=== PATIENT | female | born 1940 | race Caucasian/White ===

== ENCOUNTER 2018-07-18 09:31 | Outpatient (CLI) | payer MEDICARE ==
--- NOTE | 2018-07-18 10:36 | ULT ---
ULTRASOUND ABDOMEN: HISTORY: Increased LFTs. FINDINGS: The liver demonstrates increased echogenicity, consistent with fatty infiltration. No focal mass or intrahepatic ductal dilatation is seen. No gallstones, gallbladder wall thickening, or pericholecyst ic fluid is identified. The common duct measures 4 mm in diameter. The right kidney and pancreas ar e normal. No free fluid is seen in the Renteria pouch. IMPRESSION: 1. Fatty liver. 2. No evidence of cholelithiasis. POS: [facility]
== END 2018-07-18 09:32 | disposition home or self-care (01) ==
LOC: BICULT 09:31
PROVIDERS: ATTEND Internal Medicine
DX: R74.0 Nonspecific elevation of levels of transaminase and lactic acid dehydrogenase [LDH] (principal); K76.0 Fatty (change of) liver, not elsewhere classified
CPT/HCPCS: 76705

== ENCOUNTER 2018-10-31 13:54 | Inpatient (IN) | payer MEDICARE ==
[2018-10-31] MEDS ORDERED: Acetaminophen 500 MG TAB ONE (14:28)
[2018-10-31 16:38] LABS: #Eosinphils 0.2 thou/uL (0.0-0.7); #Lymphocytes 2.7 thou/uL (1.20-3.40); #Monocytes 0.6 thou/uL (0.11-0.59); #Neutrophils 5.3 thou/uL (1.40-6.50); %Basophils 0.2 % (0.0-1.0); %Eosinophils 2.2 % (0.0-10.0); %Lymphocytes 31.1 % (21.0-51.0); %Monocytes 6.2 % (0.0-10.0); %Neutrophils 60.3 % (42.0-75.0); Hemoglobin 14.9 g/dL (12.0-16.0); Mean Corpuscular HGB CONC 33.9 g/dL (32.0-36.0); Mean Corpuscular Hemoglobin 33.2 pg (27.0-31.0); Mean Platelet Volume 9.2 fL (7.4-10.4); Platelet Count 195 thou/uL (130-400); RBC Distribution Width 12.1 % (11.5-14.5); Red Blood Cell (RBC) Count 4.48 mill/uL (4.20-5.40); White Blood Cell (WBC) Count 8.8 thou/uL (4.8-10.8)
[2018-10-31 17:11] LABS: ALT (SGPT) 95 U/L (8-55); AST (SGOT) 87 U/L (5-34); Albumin 4.1 g/dL (3.4-4.8); Alkaline Phosphatase 96 U/L (40-150); Anion Gap 13 mmol/L (10-20); BUN (Urea Nitrogen) 19 mg/dL (9.8-20.1); Bilirubin, Total 0.3 mg/dL (0.2-1.2); CK (CPK) 59 U/L (29-168); Calc. Creatinine Clearance 0 mL/min (70-130); Carbon Dioxide 25 mmol/L (23-31); Chloride 103 mmol/L (98-107); Estimated GFR-MDRD 59; Glucose 118 mg/dL (83-110); Potassium 4.9 mmol/L (3.5-5.1); Protein, Total 8.1 g/dL (6.0-8.3); Sodium 136 mmol/L (136-145)
[2018-10-31] MEDS ORDERED: hydrALAZINE 20 MG/ML VIAL ONE (17:13)
--- NOTE | 2018-10-31 17:22 | CT ---
CT HEAD NONCONTRAST: HISTORY: Headache. Nausea. COMPARISON: None. FINDINGS: There is no evidence of acute intracranial hemorrhage or infarct. Mild chronic ischemic small vessel disease and tiny scattered lacunar infarcts. There is no mass effect or shift of midline structures . The visualized paranasal sinuses remain well aerated. IMPRESSION: No acute intracranial abnormalities are demonstrated. POS: [facility]
[2018-10-31] MEDS ORDERED: Ondansetron PF 4 MG/2 ML Vial ONE (18:38)
[2018-10-31] MEDS ORDERED: hydrALAZINE 20 MG/ML VIAL SLOW IVP PRN (20:06)
[2018-10-31] MEDS ORDERED: Amlodipine 10 MG TAB PO SCH (21:00)
--- NOTE | 2018-10-31 21:03 | HP ---
PRIMARY CARE PHYSICIAN: Dr. Kimi Kumar. CHIEF COMPLAINT: Headache and nausea. HISTORY OF PRESENT ILLNESS: Ms. Chavez is an 78-year-old female with past medical history of hypertension, who presents to the emergency department for having headache and nausea. The patient reports that she is taking lisinopril 40 mg and has been taking every day without any problem. The patient this afternoon felt that she was having headache and that is why she came to the ER. The patient reports that she thinks that her blood pressure is not very well controlled with this medication. The patient also reports history of gout and glaucoma. The patient was seen in the ER with manual blood pressure. Her blood pressure was noted to be 178/90. The patient's blood pressure at admission was thought to be 236/108. PAST MEDICAL HISTORY: 1. Hypertension. 2. Gout. 3. Glaucoma. PAST SURGICAL HISTORY: 1. Lithotripsy. 2. Hysterectomy. SOCIAL HISTORY: Denies alcohol, smoking, or drug use. The patient is alone. ALLERGIES: THE PATIENT HAS ALLERGY TO ATORVASTATIN, CIPROFLOXACIN, DEXAMETHASONE, GUAIFENESIN, OXYCODONE, KETAMINE, PERCOCET, AND VANCOMYCIN. FAMILY HISTORY: Reports sister had CVA. MEDICATIONS: Includes: 1. Lisinopril. 2. Allopurinol. 3. Vitamin D. 4. Vitamin B. REVIEW OF SYSTEMS: GENERAL: Nausea and headache. CONSTITUTIONAL: No fever. EYES: Reports history of photophobia. EARS, NOSE, AND THROAT: Denies any problem. CARDIOVASCULAR: No chest pain. RESPIRATORY: Denies any shortness of breath. ABDOMEN: Denies abdominal pain. Reports nausea. GENITOURINARY: Denies any dysuria. MUSCULOSKELETAL: Denies any pain. SKIN: Denies any rashes. ENDOCRINE: Denies any problems. PSYCH: Reports good mood. PHYSICAL EXAMINATION: VITAL SIGNS: Blood pressure 178/90, heart rate 67, the patient's saturation is 100% on room air, temperature 99.2. GENERAL: The patient is not in acute distress. Noted to be alert. HEAD: Atraumatic. EARS AND NOSE: Appears to be grossly normal. THROAT: No exudate noted. NECK: No lymphadenopathy noted. CARDIOVASCULAR: Regular rate and rhythm. No murmur, rubs, or gallops. RESPIRATORY: Breath sounds clear bilaterally. No wheezes. ABDOMEN: Bowel sounds positive. Nontender. Soft. EXTREMITIES: No edema noted. NEUROLOGIC: The patient noted to be alert. SKIN: No rashes noted. IMAGING STUDIES: CT of the head reviewed, negative for acute abnormalities. LABORATORY DATA: The patient's labs also reviewed and BMP within normal limits except AST 87 and ALT 95. CBC noted to be within normal limits. ASSESSMENT AND PLAN: 1. Hypertensive urgency. The patient's blood pressure not well controlled with lisinopril 40 mg. We will add amlodipine 10 mg, we will give one dose today. At this point, I am avoiding beta blockers because the patient's heart rate was in 60s. We will check troponins. We will also add hydralazine p.r.n. 2. Headache seems to have resolved. The patient does not have any acute finding on CT exam. We will continue to follow the patient. 3. Gout, may continue home allopurinol. 4. The patient is full code. 5. We will admit for observation. Medical power of securities attorney, the patient reports that her nephew, Paul can make decision for her if she is not able to. DVT ppx addressed Job ID: [id number] [facility]
[2018-10-31] MEDS ORDERED: Acetaminophen 325 MG TAB ONE (21:48)
[2018-10-31] MEDS ORDERED: HYDROcodone/Acetaminophen 5/325 mg Tablet PO PRN (23:59)
[2018-10-31] MEDS ORDERED: Bisacodyl 5 MG TAB PO PRN (23:59)
[2018-10-31] MEDS ORDERED: Zolpidem Tartrate 5 MG TAB PO PRN (23:59)
[2018-11-01] MEDS: hydrALAZINE 20 MG/ML VIAL SLOW IVP PRN (00:07)
[2018-11-01] MEDS: Ondansetron PF 4 MG/2 ML Vial IVP PRN (00:39)
[2018-11-01 00:46] LABS: Troponin I Less than 0.010 ng/mL (< 0.028)
[2018-11-01] MEDS ORDERED: Sodium Chloride 0.9% 500 ML IVPB SCH (01:45)
[2018-11-01 04:09] LABS: #Basophils 0.1 thou/uL (0.0-0.2); #Eosinphils 0.1 thou/uL (0.0-0.7); #Monocytes 0.6 thou/uL (0.11-0.59); #Neutrophils 5.8 thou/uL (1.40-6.50); %Basophils 0.6 % (0.0-1.0); %Eosinophils 1.6 % (0.0-10.0); %Lymphocytes 23.7 % (21.0-51.0); %Monocytes 6.8 % (0.0-10.0); %Neutrophils 67.3 % (42.0-75.0); Hemoglobin 14.2 g/dL (12.0-16.0); Mean Corpuscular HGB CONC 32.8 g/dL (32.0-36.0); Mean Corpuscular Hemoglobin 32.3 pg (27.0-31.0); Mean Corpuscular Volume 98.3 fL (78.0-98.0); Mean Platelet Volume 8.4 fL (7.4-10.4); Platelet Count 174 thou/uL (130-400); RBC Distribution Width 12.1 % (11.5-14.5); Red Blood Cell (RBC) Count 4.39 mill/uL (4.20-5.40); White Blood Cell (WBC) Count 8.6 thou/uL (4.8-10.8)
[2018-11-01 04:29] LABS: Anion Gap 12 mmol/L (10-20); BUN (Urea Nitrogen) 21 mg/dL (9.8-20.1); Calc. Creatinine Clearance 71 mL/min (70-130); Calcium 11.4 mg/dL (7.8-10.44); Carbon Dioxide 22 mmol/L (23-31); Cardiac Risk 5.8 (Less than 4.5); Chloride 105 mmol/L (98-107); Cholesterol 185 mg/dl (< 200 Desired); Estimated GFR-MDRD 48; Glucose 144 mg/dL (83-110); HDL Cholesterol 32 mg/dL (>60 Neg Risk); LDL Cholesterol, Calculated 117 mg/dL; Potassium 4.1 mmol/L (3.5-5.1); Sodium 135 mmol/L (136-145); Triglycerides 182 mg/dL (Less than 150)
[2018-11-01 04:33] LABS: Troponin I Less than 0.010 ng/mL (< 0.028)
[2018-11-01 08:05] LABS: Bilirubin Negative (Negative); Blood, Urine Negative (Negative); Clarity CLEAR (Clear); Glucose, Urine (Dipstick) 100 mg/dL (Negative); Leukocyte Small (Negative); Nitrite Negative (Negative); Protein, Urine (Dipstick) 30 mg/dL (Neg-Trace); Specific Gravity, Urine 1.011 (1.002-1.036); Urobilinogen 0.2 mg/dL (0.2-1.0); pH, Urine 5.5 (5.0-9.0)
[2018-11-01 08:08] LABS: Bacteria/HPF None Seen HPF (None Seen); Hyaline Casts/LPF 7-10 HYALINE CAST LPF (0-3 Hyaline); Pathc Cast-AUWi Flag 1.59 (0-2.49); RBC/HPF 0-3 HPF (0-3); Squamous Epithelial 0-3 HPF (0-3)
[2018-11-01] MEDS: Lisinopril 20 MG TAB PO SCH (09:16)
[2018-11-01] MEDS: Aspirin 81 mg Enteric Coated Tablet PO SCH (09:17)
[2018-11-01] MEDS: Amlodipine 10 MG TAB PO SCH (09:18)
[2018-11-01] MEDS: Enoxaparin Sodium 30 MG/0.3 ML SYRINGE SC SCH (09:18)
--- NOTE | 2018-11-01 11:29 | PDOC.EVN ---
Event Note - Event Note Event Note: patient reviewed with GUEST RELATIONS COORDINATOR Obriant, agree with management
[2018-11-01] MEDS ORDERED: hydrALAZINE 25 MG TAB PO SCH (15:15)
--- NOTE | 2018-11-01 16:20 | PDOC.PN ---
- Subjective Encounter Start Date: 11/01/18 Encounter Start Time: 09:00 Subjective: Patient examined today, denies complaints -: Reports her headache from yesterday has resolved - Objective Resuscitation Status - Order Detail: 10/31/18 19:59 Resuscitation Status Routine Resuscitation Status: FULL: Full Resuscitation Vital Signs & Weight: Vital Signs (12 hours) Temp Pulse Pulse Pulse Pulse Resp BP 11/01/18 15:22 85 11/01/18 11:00 97.5 F L 85 11/01/18 10:05 74 82 89 11/01/18 09:18 68 11/01/18 09:16 180/75 H 11/01/18 07:30 97.9 F 68 20 BP BP BP BP Pulse Ox 11/01/18 15:22 11/01/18 11:00 182/86 H 94 L 11/01/18 10:05 206/86 H 212/93 H 239/101 H 11/01/18 09:18 11/01/18 09:16 11/01/18 07:30 179/77 H 95 Weight Weight 110.677 kg I&O: 10/31/18 11/01/18 11/02/18 06:59 06:59 06:59 Intake Total 200 480 Balance 200 480 Result Diagrams: 11/01/18 04:02 11/01/18 04:02 Phys Exam - Physical Examination HEENT: PERRLA, moist MMs Neck: no nodes, no JVD Respiratory: clear to auscultation bilateral Cardiovascular: RRR Gastrointestinal: soft, non-tender Musculoskeletal: no edema, pulses present Neurological: non-focal, normal sensation, moves all 4 limbs Lymphatic: no nodes Psychiatric: normal affect, A&O x 3 Skin: cap refill <2 seconds Dx/Plan (1) Hypertension Code(s): I10 - ESSENTIAL (PRIMARY) HYPERTENSION Status: Acute (2) Gout Code(s): M10.9 - GOUT, UNSPECIFIED Status: Chronic - Plan cont current plan of care Added Amlodipine and apresoline PO to lisinopril as SBP in 180-200s today -: Will monitor, recheck labs in AM -: DC tomorrow if SBP improved * .
[2018-11-01] MEDS: hydrALAZINE 25 MG TAB PO SCH (21:00)
[2018-11-02 05:19] LABS: #Basophils 0.1 thou/uL (0.0-0.2); #Eosinphils 0.3 thou/uL (0.0-0.7); #Lymphocytes 2.8 thou/uL (1.20-3.40); #Monocytes 0.7 thou/uL (0.11-0.59); #Neutrophils 4.5 thou/uL (1.40-6.50); %Basophils 1.2 % (0.0-1.0); %Eosinophils 3.5 % (0.0-10.0); %Lymphocytes 33.7 % (21.0-51.0); %Monocytes 7.9 % (0.0-10.0); %Neutrophils 53.8 % (42.0-75.0); Hemoglobin 13.3 g/dL (12.0-16.0); Mean Corpuscular HGB CONC 32.5 g/dL (32.0-36.0); Mean Corpuscular Hemoglobin 32.4 pg (27.0-31.0); Mean Corpuscular Volume 99.5 fL (78.0-98.0); Mean Platelet Volume 8.7 fL (7.4-10.4); Platelet Count 186 thou/uL (130-400); RBC Distribution Width 12.2 % (11.5-14.5); Red Blood Cell (RBC) Count 4.12 mill/uL (4.20-5.40); White Blood Cell (WBC) Count 8.3 thou/uL (4.8-10.8)
[2018-11-02 05:47] LABS: ALT (SGPT) 56 U/L (8-55); AST (SGOT) 35 U/L (5-34); Albumin 3.6 g/dL (3.4-4.8); Alkaline Phosphatase 78 U/L (40-150); Anion Gap 12 mmol/L (10-20); BUN (Urea Nitrogen) 28 mg/dL (9.8-20.1); Bilirubin, Total 0.4 mg/dL (0.2-1.2); Calc. Creatinine Clearance 51 mL/min (70-130); Calcium 11.1 mg/dL (7.8-10.44); Carbon Dioxide 23 mmol/L (23-31); Chloride 105 mmol/L (98-107); Estimated GFR-MDRD 32; Glucose 118 mg/dL (83-110); Potassium 4.1 mmol/L (3.5-5.1); Protein, Total 6.6 g/dL (6.0-8.3); Sodium 136 mmol/L (136-145)
--- NOTE | 2018-11-02 08:27 | PDOC.PN ---
- Subjective Encounter Start Date: 11/02/18 Encounter Start Time: 08:26 Subjective: Patient complaining of changes with her vision since yesterday. -: States her vision seems "dark" especially in the left eye. No pain. -: Denies a headache, but reports feeling pressure in her head when she attempted to move her bowels this morning. Reports having no bowel movement x 3 days. Passing gas. No n/v and tolerating food intake. Denies any urinary symptoms. Otherwise feels well. She has been walking on occasion without any dizziness/lightheadedness. - Objective Resuscitation Status - Order Detail: 10/31/18 19:59 Resuscitation Status Routine Resuscitation Status: FULL: Full Resuscitation Vital Signs & Weight: Vital Signs (12 hours) Temp Pulse Resp BP BP Pulse Ox 11/02/18 07:27 98.1 F 75 20 126/54 L 95 11/02/18 03:40 80 18 149/67 H 94 L 11/01/18 23:29 98.5 F 78 21 H 162/68 H 93 L 11/01/18 21:00 80 145/66 H Weight Weight 244 lb I&O: 11/01/18 11/02/18 11/03/18 06:59 06:59 06:59 Intake Total 200 720 Balance 200 720 Result Diagrams: 11/02/18 04:53 11/02/18 04:53 Phys Exam - Physical Examination Constitutional: NAD HEENT: moist MMs, sclera anicteric, oral pharynx no lesions Left homonymous hemianopia evident on exam, EOM intact Neck: no nodes, supple, full ROM Respiratory: clear to auscultation bilateral Cardiovascular: RRR Gastrointestinal: soft, non-tender, no distention, positive bowel sounds obese Musculoskeletal: no edema, pulses present Neurological: normal sensation, moves all 4 limbs Power 5/5 in all limbs Facial movements normal, facial sensation intact, no tongue deviation Psychiatric: normal affect, A&O x 3 Skin: no rash Dx/Plan (1) Constipation Code(s): K59.00 - CONSTIPATION, UNSPECIFIED Status: Acute (2) Hypertension Code(s): I10 - ESSENTIAL (PRIMARY) HYPERTENSION Status: Chronic (3) Gout Code(s): M10.9 - GOUT, UNSPECIFIED Status: Chronic (4) Hypercalcemia Code(s): E83.52 - HYPERCALCEMIA Status: Acute Comment: due to primary hyperparathyroidism. - Plan cont current plan of care, DVT proph w/SCDs Appears to have left homonymous hemianopia, MRI Brain ordered. -: Neuro consult requested. -: Encourage fluid intake, monitor renal function -: Continue to monitor BP -: Miralax for constipation Diet: No/Low Calcium. ADDENDUM: MRI- Acute infarction of right acute ON SITE MANAGER distribution. Neuro consult placed. Patient allergic to atorvastatin and rosuvastatin but does not know what type of reaction. Carotid US requested. Review of Systems - Review of Systems Constitutional: negative: fever, chills, sweats, weakness, malaise Eyes: Vision Change. negative: Pain ("darkness" in left eye), Conjunctivae Inflammation, Eyelid Inflammation, Redness Respiratory: negative: Cough, Dry, Shortness of Breath, Hemoptysis, SOB with Excertion, Pleuritic Pain, Sputum, Wheezing Cardiovascular: negative: chest pain, palpitations, orthopnea, paroxysmal nocturnal dyspnea, edema, light headedness, other Gastrointestinal: Constipation. negative: Nausea, Vomiting, Abdominal Pain, Diarrhea, Melena, Hematochezia Genitourinary: negative: Dysuria, Frequency, Incontinence, Hematuria, Retention Musculoskeletal: negative: Neck Pain, Shoulder Pain, Arm Pain, Back Pain, Hand Pain, Leg Pain, Foot Pain Skin: negative: Rash, Lesions Neurological: negative: Weakness, Numbness, Incoordination, Change in Speech, Confusion, Seizures - Medications/Allergies Allergies/Adverse Reactions: Allergies Allergy/AdvReac Type Severity Reaction Status Date / Time atorvastatin [From Lipitor] Allergy Verified 10/11/16 16:32 ciprofloxacin [From Cipro] Allergy Verified 10/11/16 16:32 dextromethorphan Allergy Verified 10/11/16 16:32 [From Snapette Fusion Cough-Ankur] guaifenesin Allergy Verified 10/11/16 16:32 [From Snapette Fusion Cough-Ankur] ketamine Allergy Verified 10/11/16 16:32 oxycodone [From Percocet] Allergy Verified 10/11/16 16:32 rosuvastatin [From Crestor] Allergy Verified 10/11/16 16:32 vancomycin Allergy Verified 11/01/18 03:24 Medications: Current Medications Acetaminophen (Tylenol) 650 mg PO Q4H PRN PRN Reason: Headache/Fever/Mild Pain (1-3) Hydrocodone Bitart/Acetaminophen ([place] 5/325) 1 tab PO Q4H PRN PRN Reason: Moderate Pain (4-6) Allopurinol (Zyloprim) 300 mg PO Q2D [facility] Amlodipine Besylate (Norvasc) 10 mg PO DAILY [facility] Last Admin: 11/01/18 09:18 Dose: 10 mg Aspirin (Ecotrin) 81 mg PO DAILY [facility] Last Admin: 11/01/18 09:17 Dose: 81 mg Bisacodyl (Dulcolax) 10 mg PO DAILYPRN PRN PRN Reason: Constipation Enoxaparin Sodium (Lovenox) 30 mg SC 0900 [facility] Last Admin: 11/01/18 09:18 Dose: 30 mg Hydralazine HCl (Apresoline) 5 mg SLOW IVP Q4H PRN PRN Reason: SBP Greater Than 170 Last Admin: 11/01/18 00:07 Dose: 5 mg Hydralazine HCl (Apresoline) 25 mg PO TID [facility] Last Admin: 11/01/18 21:00 Dose: Not Given Lisinopril (Zestril) 40 mg PO DAILY [facility] Last Admin: 11/01/18 09:16 Dose: 40 mg Ondansetron HCl (Zofran) 4 mg IVP Q6H PRN PRN Reason: Nausea/Vomiting Last Admin: 11/01/18 00:39 Dose: 4 mg Polyethylene Glycol (Miralax) 17 gm PO DAILY ONE Stop: 11/02/18 09:01 Sodium Chloride (Flush - Normal Saline) 10 ml IVF Q12HR [facility] Last Admin: 11/02/18 03:43 Dose: Not Given Sodium Chloride (Flush - Normal Saline) 10 ml IVF PRN PRN PRN Reason: Saline Flush Zolpidem Tartrate (Ambien) 5 mg PO HSPRN PRN PRN Reason: Insomnia
[2018-11-02] MEDS ORDERED: Polyethylene Glycol 3350 17 GM Packet PO ONE (09:00)
[2018-11-02] MEDS: hydrALAZINE 25 MG TAB PO SCH ×3 (11:06→20:37)
[2018-11-02] MEDS: Aspirin 81 mg Enteric Coated Tablet PO SCH (11:08)
[2018-11-02] MEDS: Lisinopril 20 MG TAB PO SCH (11:08)
[2018-11-02] MEDS: Allopurinol 300 MG TAB PO SCH (11:08)
[2018-11-02] MEDS: Enoxaparin Sodium 30 MG/0.3 ML SYRINGE SC SCH (11:09)
[2018-11-02] MEDS: Amlodipine 10 MG TAB PO SCH (11:09)
--- NOTE | 2018-11-02 11:48 | MRI ---
MRI OF THE BRAIN WITHOUT CONTRAST: Comparison: None. History: Dizziness, hemianopsia. Technique: Multiplanar, multisequence MRI images were obtained of the brain without contrast. FINDINGS: There is a large wedge shaped area of high FLAIR signal and restricted diffusion in the right occipit al lobe consistent with an acute right posterior cerebral artery infarction. There is no evidence of intracranial hemorrhage or extraaxial fluid collection. The expected flow voids are present at the skull base. The corpus callosum, pituitary, craniocervical junction are unremarkable. No hydrocephalus is seen. The calvarium and overlying soft tissues are unremarkable. The visualized paranasal sinuses and masto id air cells are well aerated. IMPRESSION: Right acute ANCHORMAN distribution infarction. POS: [facility]
[2018-11-02] MEDS: Acetaminophen 325 MG TAB PO PRN (12:21)
[2018-11-02 14:16] LABS: Prothrombin Time 13.4 SEC (12.0-14.7)
[2018-11-02 14:17] LABS: PTT 34.8 SEC (22.9-36.1)
--- NOTE | 2018-11-02 15:48 | ULT ---
CAROTID ULTRASOUND: HISTORY: Ischemic stroke. COMPARISON: None. TECHNIQUE: [place] scale, color flow, Doppler imaging, and spectral waveform analysis was performed. FINDINGS: Right Carotid: No significant atherosclerotic disease. Peak systolic velocity of the common carotid artery is 176.1 cm/s. Peak systolic velocity of the internal carotid artery is 72.8 cm/s. Peak systolic ICA to CCA ratio is 0.41. Left Carotid: No significant atherosclerotic disease. Peak systolic velocity of the common carotid artery is 129.3 cm/s. Peak systolic velocity of the internal carotid artery is 103.3 cm/s Systolic ICA to CCA rati o is 0.69. Antegrade flow in both vertebral arteries. IMPRESSION: No sonographic evidence of hemodynamically significant stenosis. POS: [facility]
--- NOTE | 2018-11-02 16:37 | CON ---
DATE OF CONSULTATION: 11/02/2018 CONSULTING PHYSICIAN: Hospitalist Service. IMPRESSION: 1. Right occipital stroke. 2. Hypertension. 3. Statin intolerance. PLAN: 1. Restart aspirin. 2. Fish oil. 3. Carotid ultrasound. 4. Echocardiogram. 5. No driving. HISTORY OF PRESENT ILLNESS: Ms. Chavez is an 78-year-old woman, who came in with complaints of a headache. She did not notice the blurred vision until today. She had an MRI of the brain done, which showed a right occipital lobe infarct. She denies any other focal neurologic symptoms. She has not had any other transient neurologic deficits. PAST HISTORY: Hypertension. ALLERGIES: ATORVASTATIN, CIPROFLOXACIN, DEXTROMETHORPHAN, GUAIFENESIN, OXYCODONE, KETAMINE, AND VANCOMYCIN. SOCIAL HISTORY: No tobacco or alcohol use. FAMILY HISTORY: Noncontributory. MEDICATIONS: List was reviewed. She has been off aspirin for the last 2 months. REVIEW OF SYSTEMS: A 10-system review of systems was otherwise negative. PHYSICAL EXAMINATION: VITAL SIGNS: At this time; blood pressure 152/70, pulse 80, respirations 16, and temperature 97.7. HEENT: Pupils equal. Conjunctivae clear. Oropharynx clear. NECK: Supple. EXTREMITIES: No cyanosis, clubbing, or edema. NEUROLOGIC: She is alert and appropriate. Her speech is fluent and clear. Cranial nerve exam showed a fairly significant left homonymous field cut. Motor exam showed good strength bilaterally. There is no fix or drift. No tremor. Dysmetria is present. Sensation was intact to light touch. Gait was not tested. No abnormal movements were seen. LABORATORY STUDIES: White blood cell count 8.1, hemoglobin 14.9, and platelet count 195. Coags were in normal range. Chemistry panel only notable for a glucose of 144. Her lipid panel showed a ratio of 5.8. Urinalysis showed positive glucose and a few white cells. MRI images were reviewed. SUMMARY: This is an 78-year-old woman with history of hypertension with a probable thrombotic stroke in the right occipital lobe. Her symptoms are stable at this point. I would restart antiplatelet therapy and we advised her to try fish oil to help reduce her cholesterol level. I would be happy to follow up with her as an outpatient. Job ID: [id number]
[2018-11-02] MEDS: hydrALAZINE 20 MG/ML VIAL SLOW IVP PRN (16:58)
[2018-11-02] MEDS: Ondansetron PF 4 MG/2 ML Vial IVP PRN (17:48)
[2018-11-03 05:46] LABS: Cardiac Risk 5.4 (Less than 4.5)
[2018-11-03] MEDS: Enoxaparin Sodium 30 MG/0.3 ML SYRINGE SC SCH (08:36)
[2018-11-03] MEDS: Aspirin 81 mg Enteric Coated Tablet PO SCH (08:36)
[2018-11-03] MEDS: hydrALAZINE 25 MG TAB PO SCH ×3 (08:37→20:34)
[2018-11-03] MEDS: Amlodipine 10 MG TAB PO SCH (08:37)
[2018-11-03] MEDS: Lisinopril 20 MG TAB PO SCH (08:37)
[2018-11-03] MEDS: Allopurinol 300 MG TAB PO SCH (08:37)
[2018-11-03 09:17] LABS: #Eosinphils 0.3 thou/uL (0.0-0.7); #Lymphocytes 2.7 thou/uL (1.20-3.40); #Monocytes 0.7 thou/uL (0.11-0.59); #Neutrophils 4.5 thou/uL (1.40-6.50); %Basophils 0.4 % (0.0-1.0); %Eosinophils 3.1 % (0.0-10.0); %Lymphocytes 32.5 % (21.0-51.0); %Monocytes 8.6 % (0.0-10.0); %Neutrophils 55.4 % (42.0-75.0); Hemoglobin 13.1 g/dL (12.0-16.0); Mean Corpuscular HGB CONC 32.2 g/dL (32.0-36.0); Mean Corpuscular Hemoglobin 31.8 pg (27.0-31.0); Mean Corpuscular Volume 98.9 fL (78.0-98.0); Mean Platelet Volume 9.3 fL (7.4-10.4); Platelet Count 204 thou/uL (130-400); RBC Distribution Width 12.3 % (11.5-14.5); Red Blood Cell (RBC) Count 4.12 mill/uL (4.20-5.40); White Blood Cell (WBC) Count 8.2 thou/uL (4.8-10.8)
[2018-11-03 09:27] LABS: Anion Gap 13 mmol/L (10-20); BUN (Urea Nitrogen) 35 mg/dL (9.8-20.1); Calc. Creatinine Clearance 46 mL/min (70-130); Calcium 11.1 mg/dL (7.8-10.44); Carbon Dioxide 23 mmol/L (23-31); Chloride 104 mmol/L (98-107); Estimated GFR-MDRD 29; Glucose 119 mg/dL (83-110); Potassium 4.1 mmol/L (3.5-5.1); Sodium 136 mmol/L (136-145)
[2018-11-03] MEDS ORDERED: Polyethylene Glycol 3350 17 GM Packet PO SCH (10:00)
[2018-11-04 08:09] LABS: #Eosinphils 0.3 thou/uL (0.0-0.7); #Monocytes 0.6 thou/uL (0.11-0.59); #Neutrophils 3.8 thou/uL (1.40-6.50); %Basophils 0.6 % (0.0-1.0); %Eosinophils 3.4 % (0.0-10.0); %Monocytes 7.9 % (0.0-10.0); %Neutrophils 49.1 % (42.0-75.0); Hemoglobin 13.3 g/dL (12.0-16.0); Mean Corpuscular HGB CONC 32.2 g/dL (32.0-36.0); Mean Corpuscular Hemoglobin 32.2 pg (27.0-31.0); Mean Corpuscular Volume 99.8 fL (78.0-98.0); Mean Platelet Volume 8.7 fL (7.4-10.4); Platelet Count 183 thou/uL (130-400); RBC Distribution Width 12.2 % (11.5-14.5); Red Blood Cell (RBC) Count 4.15 mill/uL (4.20-5.40); White Blood Cell (WBC) Count 7.7 thou/uL (4.8-10.8)
[2018-11-04 08:37] LABS: ALT (SGPT) 54 U/L (8-55); AST (SGOT) 42 U/L (5-34); Albumin 3.8 g/dL (3.4-4.8); Alkaline Phosphatase 81 U/L (40-150); Anion Gap 12 mmol/L (10-20); BUN (Urea Nitrogen) 43 mg/dL (9.8-20.1); Bilirubin, Total 0.5 mg/dL (0.2-1.2); Calc. Creatinine Clearance 46 mL/min (70-130); Calcium 10.9 mg/dL (7.8-10.44); Carbon Dioxide 23 mmol/L (23-31); Chloride 106 mmol/L (98-107); Estimated GFR-MDRD 29; Glucose 118 mg/dL (83-110); Potassium 4.1 mmol/L (3.5-5.1); Protein, Total 6.8 g/dL (6.0-8.3); Sodium 137 mmol/L (136-145)
[2018-11-04] MEDS: Polyethylene Glycol 3350 17 GM Packet PO SCH (09:12)
[2018-11-04] MEDS: Enoxaparin Sodium 30 MG/0.3 ML SYRINGE SC SCH (09:14)
[2018-11-04] MEDS: Allopurinol 300 MG TAB PO SCH (09:15)
[2018-11-04] MEDS: Aspirin 81 mg Enteric Coated Tablet PO SCH (09:15)
[2018-11-04] MEDS: Fish Oil 1,000 MG CAP PO SCH (09:15)
[2018-11-04] MEDS: Amlodipine 10 MG TAB PO SCH (09:15)
[2018-11-04] MEDS: hydrALAZINE 25 MG TAB PO SCH ×3 (09:16→21:32)
[2018-11-04] MEDS: Lisinopril 20 MG TAB PO SCH (09:16)
[2018-11-04] MEDS: Sodium Chloride 0.9% 1,000 ML IV SCH (11:36)
--- NOTE | 2018-11-04 13:15 | PRG ---
DATE OF TELEMEDICINE SERVICE: 11/04/2018 CHIEF COMPLAINT: Right PROJECT MANAGEMENT ANALYST infarct. HISTORY OF PRESENT ILLNESS: The patient reports she is doing slightly better. Her vision has improved and she is waiting further plans. CURRENT LABORATORY DATA AND OTHER REPORTS: MRI brain shows right acute PROJECT MANAGEMENT ANALYST distribution infarct. Carotid Doppler did not reveal any hemodynamically significant stenosis. Her echocardiogram was completed, EF is about 65% to 70%. She has mild concentric left ventricular hypertrophy, mild dilatation of her atrium. White count 7.7, hemoglobin 13.3, hematocrit 41.4, platelets 183. Chemistries; sodium 137, potassium 4.1, chloride 106, BUN 43, creatinine 1.72, glucose 118, cholesterol 172, triglycerides 210, LDL 98, HDL 32, heart disease risk ratio 5.4. PHYSICAL EXAMINATION: VITAL SIGNS: Blood pressure was 148/65, pulse 89, and temperature 97.9. GENERAL APPEARANCE: Well-built, well-nourished lady, who appears comfortable. NEUROLOGIC: Cranial nerves, she has left homonymous hemianopsia. She has mild tongue deviation to the right side. Motor examination, bulk normal, tone normal , strength 5/5 throughout. Sensory, normal touch bilaterally. IMPRESSION: The patient is an 78-year-old lady with right PROJECT MANAGEMENT ANALYST infarct. Her risk factors are primarily aging and hypertension and there is no clear family history that I could obtain. Based on her current medication, she reports her aspirin was stopped about two months ago. It is best for her to stay on aspirin for future stroke prevention. Please have her follow up with her physician once she is discharged. Consider short stay of rehab placement. Please call Neurology if you have any further questions. I do think it is important to obtain a CT angiogram to evaluate her posterior circulation prior to discharge plans. We can do that once her creatinine is stabilized. I requested her nurse to contact the primary admitting physician. Her creatinine today is at 1.72. Job ID: [id number] [facility]
[2018-11-04 14:42] LABS: Albumin 3.8 g/dL (3.4-4.8); Anion Gap 13 mmol/L (10-20); BUN (Urea Nitrogen) 43 mg/dL (9.8-20.1); BUN/Creatinine Ratio 25.44; Calc. Creatinine Clearance 46 mL/min (70-130); Calcium 10.8 mg/dL (7.8-10.44); Carbon Dioxide 25 mmol/L (23-31); Chloride 102 mmol/L (98-107); Estimated GFR-MDRD 29; Glucose 138 mg/dL (83-110); Phosphorus 3.5 mg/dL (2.3-4.7); Sodium 136 mmol/L (136-145)
--- NOTE | 2018-11-04 16:51 | PDOC.PN ---
- Subjective Encounter Start Date: 11/04/18 Encounter Start Time: 11:50 Subjective: Patient reports feeling very worried and emotional. Her younger sister is -: in the hospital and her older sister 4 months ago. She states -: she continues to have difficulty with her vision. Denies any headaches. States she is very tired and states if her heart stops due to a heart attach she does not want anything to be done. Upon further discussion she changed her mind and stated she does want intervention but does not want to be on "any machines". She has advanced directives but they are at home. States her Surrogate Decision Maker is her nephew: Warren Miller. - Objective Resuscitation Status - Order Detail: 10/31/18 19:59 Resuscitation Status Routine Resuscitation Status: FULL: Full Resuscitation Vital Signs & Weight: Vital Signs (12 hours) Temp Pulse Resp BP BP Pulse Ox 11/04/18 16:00 98.3 F 84 16 144/66 H 95 11/04/18 14:07 82 137/61 11/04/18 11:54 98.4 F 82 18 137/61 95 11/04/18 09:16 89 148/65 H 11/04/18 09:15 89 148/65 H 11/04/18 07:50 98.7 F 89 18 148/65 H 94 L Weight Weight 244 lb I&O: 11/03/18 11/04/18 11/05/18 06:59 06:59 06:59 Intake Total 250 720 500 Output Total 2 Balance 250 720 498 Result Diagrams: 11/04/18 07:47 11/04/18 14:20 Dx/Plan (1) Constipation Code(s): K59.00 - CONSTIPATION, UNSPECIFIED Status: Resolved (2) Hypertension Code(s): I10 - ESSENTIAL (PRIMARY) HYPERTENSION Status: Chronic (3) Gout Code(s): M10.9 - GOUT, UNSPECIFIED Status: Chronic (4) Hypercalcemia Code(s): E83.52 - HYPERCALCEMIA Status: Acute Comment: due to primary hyperparathyroidism. - Plan cont current plan of care Patient emotional, states she has enough support from [employer]. -: Advanced directives in place, she endorses no change. MPOA: Ronald Miller. -: Seen by Dr. Isaacs who has advised CTA Head/Neck. -: GFR 29, patient encouraged to maintain adequate hydration. IVF ordered. -: Imaging requested for tomorrow morning. Patient does not have any support at home to cope with visual defects and self- care. Awaiting Inpatient Rehab screening. Review of Systems - Review of Systems Constitutional: negative: fever, chills, sweats, weakness, malaise Eyes: Vision Change (visual field defects unchanged. ). negative: Pain, Conjunctivae Inflammation, Eyelid Inflammation, Redness ENT: negative: Ear Pain, Ear Discharge, Nose Pain, Nose Discharge, Nose Congestion, Mouth Pain, Mouth Swelling, Throat Pain, Throat Swelling Respiratory: negative: Cough, Dry, Shortness of Breath, Hemoptysis, SOB with Excertion, Pleuritic Pain, Sputum, Wheezing Cardiovascular: negative: chest pain, palpitations, orthopnea, paroxysmal nocturnal dyspnea, edema, light headedness Gastrointestinal: negative: Nausea, Vomiting, Abdominal Pain, Diarrhea, Constipation, Melena, Hematochezia Genitourinary: negative: Dysuria, Frequency, Incontinence, Hematuria, Retention Musculoskeletal: negative: Neck Pain, Shoulder Pain, Arm Pain, Back Pain, Hand Pain, Leg Pain, Foot Pain Skin: negative: Rash, Lesions, Martir, Bruising Neurological: negative: Weakness, Numbness, Incoordination, Change in Speech, Confusion, Seizures - Medications/Allergies Allergies/Adverse Reactions: Allergies Allergy/AdvReac Type Severity Reaction Status Date / Time atorvastatin [From Lipitor] Allergy Verified 10/11/16 16:32 ciprofloxacin [From Cipro] Allergy Verified 10/11/16 16:32 dextromethorphan Allergy Verified 10/11/16 16:32 [From Neura Fusion Cough-Ankur] guaifenesin Allergy Verified 10/11/16 16:32 [From NComputing Cough-Ankur] ketamine Allergy Verified 10/11/16 16:32 oxycodone [From Percocet] Allergy Verified 10/11/16 16:32 rosuvastatin [From Crestor] Allergy Verified 10/11/16 16:32 vancomycin Allergy Verified 11/01/18 03:24 Medications: Current Medications Acetaminophen (Tylenol) 650 mg PO Q4H PRN PRN Reason: Headache/Fever/Mild Pain (1-3) Last Admin: 11/02/18 12:21 Dose: 650 mg Hydrocodone Bitart/Acetaminophen ([place] 5/325) 1 tab PO Q4H PRN PRN Reason: Moderate Pain (4-6) Allopurinol (Zyloprim) 300 mg PO Q2D [facility] Last Admin: 11/04/18 09:15 Dose: 300 mg Amlodipine Besylate (Norvasc) 10 mg PO DAILY [facility] Last Admin: 11/04/18 09:15 Dose: 10 mg Aspirin (Ecotrin) 81 mg PO DAILY [facility] Last Admin: 11/04/18 09:15 Dose: 81 mg Bisacodyl (Dulcolax) 10 mg PO DAILYPRN PRN PRN Reason: Constipation Last Admin: 11/03/18 08:48 Dose: 10 mg Enoxaparin Sodium (Lovenox) 30 mg SC 0900 [facility] Last Admin: 11/04/18 09:14 Dose: 30 mg Fish Oil (Fish Oil) 1,000 mg PO DAILY [facility] Last Admin: 11/04/18 09:15 Dose: 1,000 mg Hydralazine HCl (Apresoline) 5 mg SLOW IVP Q4H PRN PRN Reason: SBP Greater Than 170 Last Admin: 11/02/18 16:58 Dose: 5 mg Hydralazine HCl (Apresoline) 25 mg PO TID [facility] Last Admin: 11/04/18 14:07 Dose: 25 mg Sodium Chloride (Normal Saline 0.9%) 1,000 mls @ 75 mls/hr IV .[id number] [facility] Last Admin: 11/04/18 11:36 Dose: 1,000 mls Lisinopril (Zestril) 40 mg PO DAILY [facility] Last Admin: 11/04/18 09:16 Dose: 40 mg Ondansetron HCl (Zofran) 4 mg IVP Q6H PRN PRN Reason: Nausea/Vomiting Last Admin: 11/02/18 17:48 Dose: 4 mg Polyethylene Glycol (Miralax) 17 gm PO DAILY [facility] Last Admin: 11/04/18 09:12 Dose: 17 gm Sodium Chloride (Flush - Normal Saline) 10 ml IVF Q12HR [facility] Last Admin: 11/04/18 09:13 Dose: 10 ml Sodium Chloride (Flush - Normal Saline) 10 ml IVF PRN PRN PRN Reason: Saline Flush Last Admin: 11/04/18 11:36 Dose: 10 ml Zolpidem Tartrate (Ambien) 5 mg PO HSPRN PRN PRN Reason: Insomnia
--- NOTE | 2018-11-04 17:01 | PDOC.PN ---
- Subjective Encounter Start Date: 11/03/18 Encounter Start Time: 13:00 Subjective: Patient feeling well and without complaints. -: She states she is in good spirits despite findings. -: No further headaches or changes with her vision. Denies any n/v. No chest pain, sob, cough or hemoptysis. Feels she is at her baseline apart from vision disturbances. Continues with constipation. Reports flatus. - Objective Resuscitation Status - Order Detail: 10/31/18 19:59 Resuscitation Status Routine Resuscitation Status: FULL: Full Resuscitation Vital Signs & Weight: Vital Signs (12 hours) Temp Pulse Resp BP BP Pulse Ox 11/04/18 16:00 98.3 F 84 16 144/66 H 95 11/04/18 14:07 82 137/61 11/04/18 11:54 98.4 F 82 18 137/61 95 11/04/18 09:16 89 148/65 H 11/04/18 09:15 89 148/65 H 11/04/18 07:50 98.7 F 89 18 148/65 H 94 L Weight Weight 244 lb I&O: 11/03/18 11/04/18 11/05/18 06:59 06:59 06:59 Intake Total 250 720 500 Output Total 2 Balance 250 720 498 Result Diagrams: 11/07/18 09:33 11/07/18 09:33 Phys Exam - Physical Examination Constitutional: NAD HEENT: PERRLA, moist MMs, oral pharynx no lesions Neck: supple, full ROM Respiratory: clear to auscultation bilateral Cardiovascular: RRR Gastrointestinal: soft, non-tender, positive bowel sounds Musculoskeletal: no edema, pulses present Neurological: normal sensation, moves all 4 limbs Lymphatic: no nodes Psychiatric: normal affect, A&O x 3 Skin: no rash Dx/Plan (1) Hypertension Code(s): I10 - ESSENTIAL (PRIMARY) HYPERTENSION Status: Chronic (2) Gout Code(s): M10.9 - GOUT, UNSPECIFIED Status: Chronic (3) Hypercalcemia Code(s): E83.52 - HYPERCALCEMIA Status: Acute Comment: due to primary hyperparathyroidism. - Plan cont current plan of care Continue Miralax. -: Encouraged to increase fluid intake. -: Will hold off on IVF as patient likely for discharge. -: Awaiting CSM as patient in need of HH due to vision defects. * .
[2018-11-05] MEDS: Sodium Chloride 0.9% 1,000 ML IV SCH ×2 (01:18→15:51)
[2018-11-05 07:04] LABS: #Eosinphils 0.3 thou/uL (0.0-0.7); #Lymphocytes 2.4 thou/uL (1.20-3.40); #Monocytes 0.6 thou/uL (0.11-0.59); #Neutrophils 3.7 thou/uL (1.40-6.50); %Basophils 0.4 % (0.0-1.0); %Eosinophils 4.2 % (0.0-10.0); %Lymphocytes 34.3 % (21.0-51.0); %Monocytes 8.7 % (0.0-10.0); %Neutrophils 52.4 % (42.0-75.0); Hemoglobin 12.9 g/dL (12.0-16.0); Mean Corpuscular HGB CONC 32.4 g/dL (32.0-36.0); Mean Corpuscular Hemoglobin 32.6 pg (27.0-31.0); Platelet Count 187 thou/uL (130-400); RBC Distribution Width 12.2 % (11.5-14.5); Red Blood Cell (RBC) Count 3.95 mill/uL (4.20-5.40); White Blood Cell (WBC) Count 7.1 thou/uL (4.8-10.8)
[2018-11-05 07:28] LABS: Anion Gap 12 mmol/L (10-20); BUN (Urea Nitrogen) 37 mg/dL (9.8-20.1); Calc. Creatinine Clearance 66 mL/min (70-130); Calcium 10.6 mg/dL (7.8-10.44); Carbon Dioxide 20 mmol/L (23-31); Chloride 108 mmol/L (98-107); Estimated GFR-MDRD 44; Glucose 123 mg/dL (83-110); Potassium 4.2 mmol/L (3.5-5.1); Sodium 136 mmol/L (136-145)
[2018-11-05] MEDS: Fish Oil 1,000 MG CAP PO SCH (07:58)
[2018-11-05] MEDS: Enoxaparin Sodium 30 MG/0.3 ML SYRINGE SC SCH (07:58)
[2018-11-05] MEDS: Polyethylene Glycol 3350 17 GM Packet PO SCH (07:58)
[2018-11-05] MEDS: Lisinopril 20 MG TAB PO SCH (07:58)
[2018-11-05] MEDS: Amlodipine 10 MG TAB PO SCH (07:59)
[2018-11-05] MEDS: hydrALAZINE 25 MG TAB PO SCH ×3 (07:59→21:02)
[2018-11-05] MEDS: Aspirin 81 mg Enteric Coated Tablet PO SCH (07:59)
--- NOTE | 2018-11-05 10:07 | CT ---
CTA HEAD AND NECK WITH AND WITHOUT IV CONTRAST: INDICATIONS: History of right-sided SUPERVISOR RESIDENTIAL distribution stroke. COMPARISON: MRI brain dated 11/02/2018. CT brain dated 10/31/2018. TECHNIQUE: Multiple CTA images were obtained of the head and neck with and without IV contrast, utilizing 3D ref ormatted imaging. FINDINGS: There are evolutionary CT changes involving the right SUPERVISOR RESIDENTIAL distribution infarct, seen on most recent M RI examination, dated 11/02/2018. This was not evident by CT on the 10/31/2018 examination. The se ptum pellucidum and third ventricle are midline. The skull and extracranial soft tissues are unremark able appearing. CTA examination of the head demonstrates complete occlusion of the distal right P1 segment. The left P1 segment, MCAs, and ACAs appear patent. The vertebral arteries appear to be widely patent. There is some mild vascular calcification involvi ng the intracerebral components of both vertebral arteries. The basilar artery appears widely patent . No hemodynamically significant stenosis, occlusion, or aneurysmal formation is seen involving the cer vical ICAs. There are mild vascular calcifications seen at the level of the carotid bulbs bilaterall y. The common carotid arteries appear widely patent. The great vessel origins appear patent. There is a bovine arch configuration. There is a multinodular goiter. No pathologically enlarged lymph n odes are evident. The lung apices are clear. There is scattered degenerative and osteoarthritic yg nge. IMPRESSION: 1. Complete occlusion of the distal right P1 segment. 2. CT evolutionary changes of the right posterior cerebral artery distribution infarct seen on the m agnetic resonance examination dated 11/02/2018. No intracranial hemorrhage or midline shift is evide nt. 3. No additional hemodynamically significant stenosis, occlusion, or aneurysmal formation demonstrat ed. POS: [facility]
--- NOTE | 2018-11-05 16:33 | PDOC.PN ---
- Subjective Encounter Start Date: 11/05/18 Encounter Start Time: 09:30 Subjective: Patient examined today, is tearful after getting off the phone with her -: sister who was recently placed on hospice, reports vision is the same -: Denies other complaints - Objective Resuscitation Status - Order Detail: 10/31/18 19:59 Resuscitation Status Routine Resuscitation Status: FULL: Full Resuscitation Vital Signs & Weight: Vital Signs (12 hours) Temp Pulse Pulse Pulse Resp BP BP 11/05/18 15:51 79 11/05/18 15:41 98.3 F 79 16 11/05/18 11:47 98.4 F 79 16 11/05/18 10:50 85 82 169/70 H 11/05/18 07:59 81 11/05/18 07:58 150/66 H 11/05/18 07:42 98.1 F 81 16 11/05/18 05:22 98.6 F 75 16 BP BP Pulse Ox 11/05/18 15:51 11/05/18 15:41 177/74 H 93 L 11/05/18 11:47 175/75 H 95 11/05/18 10:50 148/65 H 11/05/18 07:59 11/05/18 07:58 11/05/18 07:42 183/78 H 92 L 11/05/18 05:22 182/77 H 94 L Weight Weight 110.677 kg I&O: 11/04/18 11/05/18 11/06/18 06:59 06:59 06:59 Intake Total 720 500 Output Total 2 Balance 720 498 Result Diagrams: 11/05/18 06:31 11/05/18 06:31 Phys Exam - Physical Examination HEENT: moist MMs vision on the left eye is impaired Neck: no nodes Respiratory: clear to auscultation bilateral Cardiovascular: RRR Gastrointestinal: soft, non-tender Musculoskeletal: no edema, pulses present vision to left eye impaired Lymphatic: no nodes Psychiatric: A&O x 3 Deviation from normal: tearful Skin: no rash, normal turgor Dx/Plan (1) Hypertension Code(s): I10 - ESSENTIAL (PRIMARY) HYPERTENSION Status: Chronic (2) Gout Code(s): M10.9 - GOUT, UNSPECIFIED Status: Chronic (3) CVA (cerebral vascular accident) Code(s): I63.9 - CEREBRAL INFARCTION, UNSPECIFIED Status: Acute - Plan Discussed case with Dr. Kraft for occluded right P1, states she is out of -: the window for intervention, -: Spiritual care consulted for grief -: awaiting decision for Rehab on dc -: Will monitor VS, labs in AM * .Late entry or 11/05/18 * * Cont ASA for R occipital stroke. Statin intolerance. * care discussed w WILDLIFE AND GAME PROTECTOR Ms.Abbi. Agree as above Review of Systems - Review of Systems Eyes: Vision Change - Medications/Allergies Allergies/Adverse Reactions: Allergies Allergy/AdvReac Type Severity Reaction Status Date / Time atorvastatin [From Lipitor] Allergy Verified 10/11/16 16:32 ciprofloxacin [From Cipro] Allergy Verified 10/11/16 16:32 dextromethorphan Allergy Verified 10/11/16 16:32 [From [employer] Fusion Cough-Ankur] guaifenesin Allergy Verified 10/11/16 16:32 [From [employer] Cough-Ankur] ketamine Allergy Verified 10/11/16 16:32 oxycodone [From Percocet] Allergy Verified 10/11/16 16:32 rosuvastatin [From Crestor] Allergy Verified 10/11/16 16:32 vancomycin Allergy Verified 11/01/18 03:24 Medications: Current Medications Acetaminophen (Tylenol) 650 mg PO Q4H PRN PRN Reason: Headache/Fever/Mild Pain (1-3) Last Admin: 11/02/18 12:21 Dose: 650 mg Hydrocodone Bitart/Acetaminophen ([place] 5/325) 1 tab PO Q4H PRN PRN Reason: Moderate Pain (4-6) Allopurinol (Zyloprim) 300 mg PO Q2D [facility] Last Admin: 11/04/18 09:15 Dose: 300 mg Amlodipine Besylate (Norvasc) 10 mg PO DAILY [facility] Last Admin: 11/05/18 07:59 Dose: 10 mg Aspirin (Ecotrin) 81 mg PO DAILY [facility] Last Admin: 11/05/18 07:59 Dose: 81 mg Bisacodyl (Dulcolax) 10 mg PO DAILYPRN PRN PRN Reason: Constipation Last Admin: 11/03/18 08:48 Dose: 10 mg Enoxaparin Sodium (Lovenox) 30 mg SC 0900 [facility] Last Admin: 11/05/18 07:58 Dose: 30 mg Fish Oil (Fish Oil) 1,000 mg PO DAILY [facility] Last Admin: 11/05/18 07:58 Dose: 1,000 mg Hydralazine HCl (Apresoline) 5 mg SLOW IVP Q4H PRN PRN Reason: SBP Greater Than 170 Last Admin: 11/02/18 16:58 Dose: 5 mg Hydralazine HCl (Apresoline) 25 mg PO TID [facility] Last Admin: 11/05/18 15:51 Dose: 25 mg Sodium Chloride (Normal Saline 0.9%) 1,000 mls @ 75 mls/hr IV .[id number] [facility] Last Admin: 11/05/18 15:51 Dose: 1,000 mls Lisinopril (Zestril) 40 mg PO DAILY [facility] Last Admin: 11/05/18 07:58 Dose: 40 mg Ondansetron HCl (Zofran) 4 mg IVP Q6H PRN PRN Reason: Nausea/Vomiting Last Admin: 11/02/18 17:48 Dose: 4 mg Polyethylene Glycol (Miralax) 17 gm PO DAILY [facility] Last Admin: 11/05/18 07:58 Dose: 17 gm Sodium Chloride (Flush - Normal Saline) 10 ml IVF Q12HR [facility] Last Admin: 11/05/18 07:59 Dose: Not Given Sodium Chloride (Flush - Normal Saline) 10 ml IVF PRN PRN PRN Reason: Saline Flush Last Admin: 11/04/18 11:36 Dose: 10 ml Zolpidem Tartrate (Ambien) 5 mg PO HSPRN PRN PRN Reason: Insomnia
[2018-11-06] MEDS: hydrALAZINE 20 MG/ML VIAL SLOW IVP PRN ×2 (04:39→17:27)
[2018-11-06] MEDS: Sodium Chloride 0.9% 1,000 ML IV SCH (04:39)
[2018-11-06] MEDS: Enoxaparin Sodium 30 MG/0.3 ML SYRINGE SC SCH (08:20)
[2018-11-06] MEDS: Fish Oil 1,000 MG CAP PO SCH (08:21)
[2018-11-06] MEDS: hydrALAZINE 25 MG TAB PO SCH ×3 (08:21→21:26)
[2018-11-06] MEDS: Lisinopril 20 MG TAB PO SCH (08:21)
[2018-11-06] MEDS: Aspirin 81 mg Enteric Coated Tablet PO SCH (08:21)
[2018-11-06] MEDS: Amlodipine 10 MG TAB PO SCH (08:21)
[2018-11-06] MEDS: Polyethylene Glycol 3350 17 GM Packet PO SCH (08:22)
[2018-11-06] MEDS: Allopurinol 300 MG TAB PO SCH (08:31)
--- NOTE | 2018-11-06 10:11 | CT ---
CTA HEAD AND NECK WITH AND WITHOUT IV CONTRAST: INDICATIONS: History of right-sided FAMILY COURT COUNSELLOR distribution stroke. COMPARISON: MRI brain dated 11/02/2018. CT brain dated 10/31/2018. TECHNIQUE: Multiple CTA images were obtained of the head and neck with and without IV contrast, utilizing 3D ref ormatted imaging. FINDINGS: There are evolutionary CT changes involving the right FAMILY COURT COUNSELLOR distribution infarct, seen on most recent M RI examination, dated 11/02/2018. This was not evident by CT on the 10/31/2018 examination. The se ptum pellucidum and third ventricle are midline. The skull and extracranial soft tissues are unremark able appearing. CTA examination of the head demonstrates complete occlusion of the distal right P1 segment. The left P1 segment, MCAs, and ACAs appear patent. The vertebral arteries appear to be widely patent. There is some mild vascular calcification involvi ng the intracerebral components of both vertebral arteries. The basilar artery appears widely patent . No hemodynamically significant stenosis, occlusion, or aneurysmal formation is seen involving the cer vical ICAs. There are mild vascular calcifications seen at the level of the carotid bulbs bilaterall y. The common carotid arteries appear widely patent. The great vessel origins appear patent. There is a bovine arch configuration. There is a multinodular goiter. No pathologically enlarged lymph n odes are evident. The lung apices are clear. There is scattered degenerative and osteoarthritic yg nge. IMPRESSION: 1. Complete occlusion of the distal right P1 segment. 2. CT evolutionary changes of the right posterior cerebral artery distribution infarct seen on the m agnetic resonance examination dated 11/02/2018. No intracranial hemorrhage or midline shift is evide nt. 3. No additional hemodynamically significant stenosis, occlusion, or aneurysmal formation demonstrat ed.
--- NOTE | 2018-11-06 10:42 | PDOC.PN ---
- Subjective Encounter Start Date: 11/06/18 Encounter Start Time: 10:30 Subjective: Patient examined, complaining of some dysuria -: Patient is still tearful when talking about her recent loss, denies HI/SI - Objective Resuscitation Status - Order Detail: 10/31/18 19:59 Resuscitation Status Routine Resuscitation Status: FULL: Full Resuscitation Vital Signs & Weight: Vital Signs (12 hours) Temp Pulse Resp BP BP Pulse Ox 11/06/18 08:21 81 175/71 H 11/06/18 08:00 98 F 86 20 178/78 H 94 L 11/06/18 04:39 81 175/71 H 11/06/18 04:00 98.3 F 81 19 175/71 H 92 L 11/06/18 00:00 98.3 F 84 19 176/77 H 93 L Weight Weight 110.677 kg I&O: 11/05/18 11/06/18 11/07/18 06:59 06:59 06:59 Intake Total 500 Output Total 2 Balance 498 Result Diagrams: 11/05/18 06:31 11/05/18 06:31 Phys Exam - Physical Examination HEENT: PERRLA, moist MMs Neck: no nodes, no JVD Respiratory: clear to auscultation bilateral Cardiovascular: RRR, no significant murmur Gastrointestinal: soft, positive bowel sounds mild suprapubic tenderness on palpation Musculoskeletal: no edema, pulses present Neurological: non-focal, normal sensation eye sight in left eye is decreased Lymphatic: no nodes Psychiatric: normal affect, A&O x 3 Skin: no rash, normal turgor, cap refill <2 seconds Dx/Plan (1) Hypertension Code(s): I10 - ESSENTIAL (PRIMARY) HYPERTENSION Status: Chronic (2) Gout Code(s): M10.9 - GOUT, UNSPECIFIED Status: Chronic (3) CVA (cerebral vascular accident) Code(s): I63.9 - CEREBRAL INFARCTION, UNSPECIFIED Status: Acute (4) Dysuria Code(s): R30.0 - DYSURIA Status: Acute Plan: UA and Urine CX ordered - Plan cont current plan of care, PT/OT Await placement, per CM, her chart is in Dr. Israel's queue to review -: Will obtain UA, patient instructed to call staff when she urinates -: JOHNATHON improved, will stop fluids, and push PO fluids -: Will continue to monitor and check labs * . Pt seen and examined independently..c/o lower abd pain and dysuria.will add empiric ABx. urine sent. rest as per CASINO SURVEILLANCE OFFICER MsDarrell Go's note Review of Systems - Review of Systems Eyes: Vision Change Genitourinary: Dysuria - Medications/Allergies Allergies/Adverse Reactions: Allergies Allergy/AdvReac Type Severity Reaction Status Date / Time atorvastatin [From Lipitor] Allergy Verified 10/11/16 16:32 ciprofloxacin [From Cipro] Allergy Verified 10/11/16 16:32 dextromethorphan Allergy Verified 10/11/16 16:32 [From [employer] Nature Fusion Cough-Ankur] guaifenesin Allergy Verified 10/11/16 16:32 [From [employer] Cough-Ankur] ketamine Allergy Verified 10/11/16 16:32 oxycodone [From Percocet] Allergy Verified 10/11/16 16:32 rosuvastatin [From Crestor] Allergy Verified 10/11/16 16:32 vancomycin Allergy Verified 11/01/18 03:24 Medications: Current Medications Acetaminophen (Tylenol) 650 mg PO Q4H PRN PRN Reason: Headache/Fever/Mild Pain (1-3) Last Admin: 11/02/18 12:21 Dose: 650 mg Hydrocodone Bitart/Acetaminophen ([place] 5/325) 1 tab PO Q4H PRN PRN Reason: Moderate Pain (4-6) Allopurinol (Zyloprim) 300 mg PO Q2D [facility] Last Admin: 11/06/18 08:31 Dose: 300 mg Amlodipine Besylate (Norvasc) 10 mg PO DAILY [facility] Last Admin: 11/06/18 08:21 Dose: 10 mg Aspirin (Ecotrin) 81 mg PO DAILY [facility] Last Admin: 11/06/18 08:21 Dose: 81 mg Bisacodyl (Dulcolax) 10 mg PO DAILYPRN PRN PRN Reason: Constipation Last Admin: 11/03/18 08:48 Dose: 10 mg Enoxaparin Sodium (Lovenox) 30 mg SC 0900 [facility] Last Admin: 11/06/18 08:20 Dose: 30 mg Fish Oil (Fish Oil) 1,000 mg PO DAILY [facility] Last Admin: 11/06/18 08:21 Dose: 1,000 mg Hydralazine HCl (Apresoline) 5 mg SLOW IVP Q4H PRN PRN Reason: SBP Greater Than 170 Last Admin: 11/06/18 04:39 Dose: 5 mg Hydralazine HCl (Apresoline) 25 mg PO TID [facility] Last Admin: 11/06/18 08:21 Dose: 25 mg Lisinopril (Zestril) 40 mg PO DAILY [facility] Last Admin: 11/06/18 08:21 Dose: 40 mg Ondansetron HCl (Zofran) 4 mg IVP Q6H PRN PRN Reason: Nausea/Vomiting Last Admin: 11/02/18 17:48 Dose: 4 mg Polyethylene Glycol (Miralax) 17 gm PO DAILY [facility] Last Admin: 11/06/18 08:22 Dose: 17 gm Sodium Chloride (Flush - Normal Saline) 10 ml IVF Q12HR [facility] Last Admin: 11/06/18 08:22 Dose: 10 ml Sodium Chloride (Flush - Normal Saline) 10 ml IVF PRN PRN PRN Reason: Saline Flush Last Admin: 11/04/18 11:36 Dose: 10 ml Zolpidem Tartrate (Ambien) 5 mg PO HSPRN PRN PRN Reason: Insomnia
[2018-11-06 12:21] LABS: Bilirubin Negative (Negative); Blood, Urine Negative (Negative); Clarity CLEAR (Clear); Glucose, Urine (Dipstick) Negative (Negative); Leukocyte Small (Negative); Nitrite Negative (Negative); Protein, Urine (Dipstick) Negative (Neg-Trace); Specific Gravity, Urine 1.012 (1.002-1.036); Urobilinogen 0.2 mg/dL (0.2-1.0); pH, Urine 5.5 (5.0-9.0)
[2018-11-06 12:24] LABS: Bacteria/HPF None Seen HPF (None Seen); Hyaline Casts/LPF 0-3 HYALINE CAST LPF (0-3 Hyaline); Squamous Epithelial 0-3 HPF (0-3)
[2018-11-06] MEDS: Phenazopyridine HCl 97.5 MG TABLET PO SCH ×2 (13:30→17:27)
[2018-11-06] MEDS: Nitrofurantoin Macrocrystal 50 MG CAP PO SCH ×2 (13:30→17:27)
[2018-11-06] MEDS ORDERED: diphenhydrAMINE 25 MG CAP PO PRN (18:45)
--- NOTE | 2018-11-06 19:13 | PDOC.EVN ---
Event Note - Event Note Event Note: ZULAY Bose notified that Ms Kathy complaining she did not feel well, nauseous and her BP was up. Upon visiting her, she reports some MS pain in her neck and shoulders and reports vertigo type symptoms, similar to past episodes. BP 181/ 75. Patient started on Macrodantin today, 2nd dose given around 5:30pm. EKG ordered, macrodantin stopped for possible adverse reaction, and RN will give patient's night BP meds a bit early. DC to Rehab cancelled for tonight. We will reassess in AM and try and send to Rehab if patient feels better. Patient has tearful and anxious intermittently during her stay. We will keep her here overnight.
[2018-11-06] MEDS: Ondansetron PF 4 MG/2 ML Vial IVP PRN (19:21)
[2018-11-06] MEDS ORDERED: cefTRIAXone\\ROCEPHIN 1 GM in Sodium Chloride 0.9% 100 ML IVPB SCH (20:00)
[2018-11-07] MEDS: Acetaminophen 325 MG TAB PO PRN (03:55)
[2018-11-07] MEDS: hydrALAZINE 20 MG/ML VIAL SLOW IVP PRN (03:55)
[2018-11-07] MEDS: Aspirin 81 mg Enteric Coated Tablet PO SCH (09:15)
[2018-11-07] MEDS: Fish Oil 1,000 MG CAP PO SCH (09:15)
[2018-11-07] MEDS: Amlodipine 10 MG TAB PO SCH (09:15)
[2018-11-07] MEDS: Lisinopril 20 MG TAB PO SCH (09:15)
[2018-11-07] MEDS: Polyethylene Glycol 3350 17 GM Packet PO SCH (09:16)
[2018-11-07] MEDS: Enoxaparin Sodium 30 MG/0.3 ML SYRINGE SC SCH (09:16)
[2018-11-07] MEDS: hydrALAZINE 25 MG TAB PO SCH (09:21)
[2018-11-07 09:55] LABS: #Eosinphils 0.2 thou/uL (0.0-0.7); #Lymphocytes 1.6 thou/uL (1.20-3.40); #Monocytes 0.8 thou/uL (0.11-0.59); #Neutrophils 8.6 thou/uL (1.40-6.50); %Basophils 0.4 % (0.0-1.0); %Eosinophils 1.9 % (0.0-10.0); %Lymphocytes 14.3 % (21.0-51.0); %Monocytes 6.8 % (0.0-10.0); %Neutrophils 76.6 % (42.0-75.0); Hemoglobin 12.3 g/dL (12.0-16.0); Mean Corpuscular HGB CONC 32.4 g/dL (32.0-36.0); Mean Corpuscular Hemoglobin 31.9 pg (27.0-31.0); Mean Corpuscular Volume 98.6 fL (78.0-98.0); Platelet Count 184 thou/uL (130-400); RBC Distribution Width 12.3 % (11.5-14.5); Red Blood Cell (RBC) Count 3.84 mill/uL (4.20-5.40); White Blood Cell (WBC) Count 11.2 thou/uL (4.8-10.8)
--- NOTE | 2018-11-07 10:03 | PDOC.EVN ---
Event Note - Event Note Event Note: patient reports she feels much better today, still has some dysuria, ABX changed , had one dose of Rocephin here and will put Omnicef on her Med Rec for the Rehab. Patient denies SOB, chest pain, abdominal pain, N/V, headache, muscle pain, neck pain, chills. Ate a good breakfast. Is agreeable to go to the Rehab today. ZULAY Bose will call the Rehab today to see if they have a bed and will arrange transport.
[2018-11-07 10:15] LABS: ALT (SGPT) 38 U/L (8-55); AST (SGOT) 26 U/L (5-34); Albumin 3.6 g/dL (3.4-4.8); Alkaline Phosphatase 78 U/L (40-150); Anion Gap 7 mmol/L (10-20); BUN (Urea Nitrogen) 18 mg/dL (9.8-20.1); Bilirubin, Total 0.6 mg/dL (0.2-1.2); Calc. Creatinine Clearance 75 mL/min (70-130); Carbon Dioxide 27 mmol/L (23-31); Chloride 107 mmol/L (98-107); Estimated GFR-MDRD 51; Globulin 3.1 g/dL (2.4-3.5); Glucose 125 mg/dL (83-110); Potassium 4.2 mmol/L (3.5-5.1); Protein, Total 6.7 g/dL (6.0-8.3); Sodium 137 mmol/L (136-145)
[2018-11-07] MEDS ORDERED: Phenazopyridine HCl 97.5 MG TABLET PO SCH ×2 (10:30→13:00)
[2018-11-07 11:38] VITALS: TEMP 98.3
[2018-11-07 12:46] VITALS: BP 187/79
== END 2018-11-07 13:45 | DRG 65 ==
LOC: ERS 13:54 → ERHOLD 18:12 → 2SW 23:32 → OBSVTOIN 11-01 16:04 → 2SE 11-02 16:45
PROVIDERS: ADMIT Emergency Medicine; ATTEND Emergency Medicine
DX: I63.331 Cerebral infarction due to thrombosis of right posterior cerebral artery (principal); N17.9 Acute kidney failure, unspecified; H53.462 Homonymous bilateral field defects, left side; I16.0 Hypertensive urgency; R29.703 NIHSS score 3; I10 Essential (primary) hypertension; E21.0 Primary hyperparathyroidism; M10.9 Gout, unspecified; R51 Headache; K59.00 Constipation, unspecified; R30.0 Dysuria; I25.2 Old myocardial infarction
CPT/HCPCS: 36415; 36416; 70450; 70496; 70498; 70551; 80048; 80053; 80061; 81001; 81003; 81015; 82550; 83605; 83970; 84484; 85025; 85610; 85730; 87086; 87804; 93005; 93010; 93306; 93880; 94760; 96374; 96375; 96376; J0360; J0696; J1650; J2405; J7050

== ENCOUNTER 2019-07-26 08:42 | Inpatient (IN) | payer MEDICARE ==
[2019-07-26] MEDS ORDERED: Morphine 4 MG/ML VIAL ONE ×2 (09:03→10:03)
[2019-07-26 09:31] LABS: #Basophils 0.1 thou/uL (0.0-0.2); #Eosinphils 0.2 thou/uL (0.0-0.7); #Lymphocytes 2.4 thou/uL (1.20-3.40); #Monocytes 0.3 thou/uL (0.11-0.59); #Neutrophils 3.9 thou/uL (1.40-6.50); %Basophils 1.1 % (0.0-1.0); %Eosinophils 3.2 % (0.0-10.0); %Lymphocytes 34.7 % (21.0-51.0); %Monocytes 4.9 % (0.0-10.0); %Neutrophils 56.1 % (42.0-75.0); Hemoglobin 14.4 g/dL (12.0-16.0); Mean Corpuscular HGB CONC 33.4 g/dL (32.0-36.0); Mean Corpuscular Hemoglobin 32.7 pg (27.0-31.0); Mean Corpuscular Volume 97.8 fL (78.0-98.0); Mean Platelet Volume 8.7 fL (7.4-10.4); Platelet Count 172 thou/uL (130-400); RBC Distribution Width 12.3 % (11.5-14.5); Red Blood Cell (RBC) Count 4.42 mill/uL (4.20-5.40); White Blood Cell (WBC) Count 6.9 thou/uL (4.8-10.8)
[2019-07-26 09:36] LABS: INR-International Normal Ratio 0.9; PTT 23.3 SEC (22.9-36.1); Prothrombin Time 12.6 SEC (12.0-14.7)
[2019-07-26] MEDS ORDERED: Ondansetron PF 4 MG/2 ML Vial ONE (09:52)
[2019-07-26 09:57] LABS: ALT (SGPT) 102 U/L (8-55); AST (SGOT) 77 U/L (5-34); Alkaline Phosphatase 104 U/L (40-110); Anion Gap 13 mmol/L (10-20); BUN (Urea Nitrogen) 16 mg/dL (9.8-20.1); Bilirubin, Total 0.5 mg/dL (0.2-1.2); Calc. Creatinine Clearance 0 mL/min (70-130); Carbon Dioxide 21 mmol/L (23-31); Chloride 107 mmol/L (98-107); Estimated GFR-MDRD 68; Globulin 3.6 g/dL (2.4-3.5); Glucose 137 mg/dL (83-110); Protein, Total 7.6 g/dL (6.0-8.3); Sodium 137 mmol/L (136-145)
--- NOTE | 2019-07-26 10:15 | RAD ---
Exam:2 views right hip HISTORY: Fall. Pain. COMPARISON: None FINDINGS: Angulated right femoral neck fracture. Remainder of the visualized bony pelvis is unremarka ble. IMPRESSION: Right femoral neck fracture.
--- NOTE | 2019-07-26 10:16 | RAD ---
Exam: One view pelvis HISTORY: Pain. Fall. FINDINGS: Limited evaluation the sacrum due to overlying bowel gas. Grossly the sacral ala are preser emmanuel and the bony pelvis is intact. Bilateral obturator rings are intact. Right femoral neck fracture. IMPRESSION: Right femoral neck fracture.
--- NOTE | 2019-07-26 10:17 | RAD ---
XR Ankle Rt 3 View STANDARD INDICATION: Fall COMPARISON: None. FINDINGS: Bones: Intact. Ankle mortise: Symmetric. Talar Dome: Intact. Subtalar joint: Normal. Visualized hindfoot: There is enthesopathic change off the posterior and plantar calcaneus. Periarticular soft tissues: There is soft tissue swelling of the distal right foreleg, ankle and foot . IMPRESSION: 1. No acute fracture or subluxation demonstrated.
--- NOTE | 2019-07-26 10:18 | RAD ---
Chest AP view INDICATION: Fall COMPARISON: May 16, 2017 FINDINGS: Lungs:Hypoventilated Cardiac silhouette:The accentuated by exam technique. Mild cardiomegaly is likely stable to the inez rison. Pulmonary vasculature:Normal Pleural spaces:Costophrenic angles are excluded. No definite pleural effusion is grossly evident. Upper abdomen:No abnormality seen. Osseous structures: There is scattered degenerative and osteoarthritic change present. Additional findings:None. IMPRESSION: No acute cardiopulmonary abnormality. Stable mild cardiomegaly without radiographic evide nce of cardiac decompensation. Some limitations to the exam as above.
[2019-07-26] MEDS ORDERED: Promethazine HCl 25 MG/ML VIAL ONE (10:26)
[2019-07-26] MEDS ORDERED: CEFAZOLIN 2 GM in Premix Bag 1 BAG IVPB SCH (10:45)
[2019-07-26] MEDS ORDERED: Scopolamine 1.5 mg/72 hour Patch TOP SCH (10:45)
[2019-07-26] MEDS ORDERED: Dextrose 5% in Water 1,000 ML IV PRN (10:46)
[2019-07-26] MEDS ORDERED: Ondansetron PF 4 MG/2 ML Vial IVP PRN (10:46)
[2019-07-26] MEDS ORDERED: HumaLOG 300 UNITS/3 ML VIAL SC PRN (10:46)
[2019-07-26] MEDS ORDERED: hydrALAZINE 20 MG/ML VIAL SLOW IVP PRN (10:46)
[2019-07-26] MEDS ORDERED: Promethazine HCl 25 MG/ML VIAL IM PRN ×2 (10:46)
[2019-07-26] MEDS ORDERED: Dextrose 50% Abboject 50 ML SYRINGE SLOW IVP PRN (10:46)
[2019-07-26] MEDS ORDERED: Ketorolac Tromethamine 15 MG/ML VIAL IVP PRN (10:51)
[2019-07-26] MEDS ORDERED: Ketorolac Tromethamine 30 MG/ML VIAL IVP PRN (10:54)
[2019-07-26] MEDS ORDERED: Ketorolac Tromethamine 30 MG/ML VIAL ONE (11:00)
[2019-07-26] MEDS ORDERED: Sodium Chloride 0.9% 1,000 ML IV SCH ×2 (11:00)
[2019-07-26] MEDS ORDERED: Allopurinol 300 MG TAB PO SCH (12:00)
--- NOTE | 2019-07-26 12:26 | CON ---
DATE OF CONSULTATION: This is Neto Guerra PA-C dictating a report for Ean Mckeon MD. HISTORY OF PRESENT ILLNESS: We were asked by Trauma in the ER to see patient. The patient was getting a piece of fudge in the kitchen and unfortunately last night was using the chair for support. These are heavy chairs per the family, and the patient has lost her balance, fell over with the chair, ended up with a right hip fracture. The patient is unable to move that right lower extremity, but has no numbness or tingling down that leg. Unfortunately, she also has quite significant motion sickness, so any kind of abrupt or [id number] movement of her head causes significant nausea. Per the family and the patient, she has had this for many years. Family states they wish no blood products. There are Jehovah witnesses, but they will accept a closed Cell Saver system. The patient does have a fair amount of health issues and had a CVA in October of this year. She also has quite a bit of sensitivities to medications. Son and family are at bedside, and son is power of document review attorney. PAST MEDICAL HISTORY: Positive for gout, glaucoma, kidney stones, NH, stroke that affected the eyesight minutely, female surgical histories. PAST SURGICAL HISTORY: Lithotripsies, hysterectomy, oophorectomy, left femur surgery, and right shoulder surgery. SOCIAL HISTORY: Resides at home. No alcohol or nicotine products whatsoever. No drug products per family. 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 CURRENT MEDICATIONS: 1. Lisinopril. 2. Aspirin. 3. Allopurinol. 4. Amlodipine. 5. Carvedilol. 6. Timolol maleate. ALLERGIES: ANTIHISTAMINES, ATORVASTATIN, CIPROFLOXACIN, DEXTROMETHORPHAN, GUAIFENESIN, KETAMINE, OXYCODONE, PERCOCET, ROSUVASTATIN, AND VANCOMYCIN. REVIEW OF SYSTEMS: Severe nausea and vomiting right now, severe dizziness due to motion sickness and right hip pain. Otherwise denies any respiratory chest pain. No shortness of breath. Currently, no bowel or bladder issues. Rest of review of systems negative. PHYSICAL EXAMINATION: GENERAL: Well-nourished, well-developed mildly obese female, resting on the gurney in room 3 in the ER, in moderate distress and significant nausea and vomiting. Her speech is soft, but clear. She is answering questions appropriately and she is oriented x3. Family is at the bedside helping with history. HEENT: Face is symmetric. Smile symmetric. Tongue midline. She is able to see out of both eyes, but states she has a slight vision deficits. NECK: Supple. Trachea midline. EXTREMITIES: Upper extremities; equal size, shape, symmetry. Normal bulk and tone. Movement symmetric. Sensations intact. Lower extremities, right lower extremity is shortened and outward rotated, but sensations are intact. She can wiggle both lower extremity toes. DP and PT pulses are equal. LUNGS: Respiratory rate 20, a little bit labored due to nausea and vomiting. LABORATORY DATA: X-ray shows a right hip proximal femoral neck fracture. CBC; WBC 6.9, hemoglobin 14.4, hematocrit 43.2, and platelet count 172. Coags are fine. Chemistries show elevated glucose, calcium, AST, and ALT. Trauma will follow for medical clearance. ASSESSMENT: Right hip fracture. PLAN: It would be stressed from the family the patient and family are Jehovah witnesses, they do not wish any blood products whatsoever, but they will accept Cell Saver closed system if needed. We talked about risks and benefits of surgery. Family's questions and concerns have been addressed. They are amenable to go forth with surgery. The plan for surgery would be a right hemiarthroplasty. She needs to be medically cleared from trauma. I have put her on the surgery schedule at 8 o'clock in the morning. We will get her consented. IV antibiotics have been ordered. Ordered some Dramamine for motion sickness as she states this has helped her in the past, and hopefully, we can get her feeling a little better. It should also be noted that she needs to be moving fairly slowly. She is very very sensitive to any kind of quick movements and it will set off her motion sickness. Discussed plan with Dr. Mckeon. Job ID: [id number]
[2019-07-26] MEDS ORDERED: Morphine 2 MG/ML SYRINGE SLOW IVP PRN (12:35)
[2019-07-26] MEDS: Acetaminophen 1,000 MG in Premix Bag 1 BAG IVPB SCH ×2 (12:49→19:43)
[2019-07-26] MEDS: Morphine 4 MG/ML VIAL SLOW IVP PRN (13:07)
[2019-07-26] MEDS ORDERED: Amiodarone 150 MG in Dextrose 5% in Water 100 ML IVPB SCH (13:30)
[2019-07-26 14:36] LABS: Magnesium 1.5 mg/dL (1.6-2.6); Phosphorus 2.6 mg/dL (2.3-4.7)
[2019-07-26] MEDS ORDERED: Magnesium 2 GM/50 ML 2 GM in Premix Bag 1 BAG IVPB SCH (14:45)
[2019-07-26 15:21] VITALS: BMI 39.7
--- NOTE | 2019-07-26 15:29 | HP ---
This is Yuan Chan PA-C dictating a report for Lucio Correia MD. HISTORY OF PRESENT ILLNESS: Ms. Chavez is an 78-year-old female, who presented to the ER after an incident of mechanical fall at home. The patient's nephew, Ronald Beard, reports that the patient was around the house. Using the walker, she is walking independently usually and she can take care of herself. She bathe herself and eat herself. She must have tripped over either a dog or a furniture. The patient did not recall. The patient did not report loss of consciousness or hit her head at that time. After the fall, the patient could not bear weight from her right lower extremity. Upon arrival in the ED, the patient is awake and alert. GCS 15. Vital signs: Heart rate is elevated. When at rest, her heart rate is around 90 to 100 and when is in pain with movement, her heart rate is around 120 to 130. Blood pressure 160/80, O2 sats are 98% on room air. PAST MEDICAL HISTORY: In October early this year, the patient had a stroke, which resolved almost completely and she regained all of her function. The only remain is that she feels dizzy very easy with change of position. She also has hypertension and gout, which is treated. Patient reported that she had some heart with her heart beat fast, her Dr did order some test but she did not hear back any result PAST SURGICAL HISTORY: Hysterectomy. SOCIAL HISTORY: Denies smoking, drinking, or drug using. The patient lives at home. The patient has no children and she does have support from her niece and nephew. CURRENT MEDICATIONS: 1. Lisinopril. 2. Amlodipine. 3. Atorvastatin. 4. Aspirin 81 mg once a day. 5. Allopurinol. ALLERGIES: THE PATIENT HAS SEVERE REACTION WITH KETAMINE, AND ALSO OXYCODONE, PERCOCET, AND DEXTROMETHORPHAN. REVIEW OF SYSTEMS: Noncontributory except per HPI. PHYSICAL EXAMINATION: GENERAL: The patient is lying in bed comfortable with no acute respiratory distress. Complains of pain from the right hip. SKIN: Moist and pink. VITAL SIGNS: Temperature 98, heart rate is 120, respiratory rate 20, O2 saturation 98% on room air, and blood pressure 150/80. HEENT: Atraumatic. No bruising. Pupils are 3 mm, equal bilaterally and reactive to light bilaterally. NECK: Trachea is midline, atraumatic, nontender to palpation. CHEST: Atraumatic. No crepitus. No bruising. LUNGS: Clear bilaterally. HEART: Irregular rate, irregular rhythm, 120 per minute. ABDOMEN: Soft and nondistended. No bruising. Nontender to palpation. Bowel sounds active. EXTREMITIES: Neurovascularly intact x4. Right hip range of motion is limited due to pain. NEUROLOGIC: No focal neurologic deficits. ASSESSMENT: 1. Status post mechanical fall. 2. Right hip fracture. 3. History of hypertension, gout, previous cerebrovascular accident, and atrial fibrillation. 4. Severe reaction with ketamine. PLAN: The patient will be admitted to [place] [id number] for pain control. After pain control, if the ventricular response is not good, we will think of rate control for the patient. Dermatologist Managing Partner is consulted. Dr. Red will see the patient today. The patient will be n.p.o. at midnight. Prepare for Orthopedic and take the patient to the OR tomorrow morning. Resume on home medication. Non-pharmacological DVT prophylaxis and gastritis prophylaxis. We will check magnesium level. The patient was seen by Dr. Correia . Job ID: [id number] MTDD
[2019-07-26 16:40] LABS: Bacteria/HPF None Seen HPF (None Seen); Bilirubin Negative (Negative); Blood, Urine Negative (Negative); Clarity Clear (Clear); Glucose, Urine (Dipstick) 30 mg/dL (Negative); Leukocyte Negative Leu/uL (Negative); Nitrite Negative (Negative); Protein, Urine (Dipstick) 20 mg/dL (Neg-Trace); RBC/HPF 0-3 HPF (0-3); Squamous Epithelial None Seen HPF (0-3); Urobilinogen Normal mg/dL (Less than 2); WBC/HPF 0-3 HPF (0-3)
[2019-07-26] MEDS ORDERED: Hydrocortisone Sod Succ/PF 100 mg/2 ml Vial IVP SCH (17:15)
[2019-07-26] MEDS: Amiodarone 450 MG in Dextrose 5% in Water 250 ML IVPB SCH (17:26)
[2019-07-26] MEDS ORDERED: Lisinopril 20 MG TAB PO SCH (18:00)
[2019-07-26] MEDS: Famotidine/PF 20 mg/2ml Vial SLOW IVP SCH (20:46)
[2019-07-26] MEDS: Carvedilol 3.125 MG TAB PO SCH (20:47)
[2019-07-26] MEDS ORDERED: Senokot S 8.6-50 MG TAB PO SCH ×2 (21:00)
[2019-07-26] MEDS ORDERED: Famotidine/PF 20 mg/2ml Vial SLOW IVP SCH (21:00)
--- NOTE | 2019-07-26 23:01 | PRG ---
DATE OF SERVICE: 07/26/2019 SUBJECTIVE: The patient was admitted today, status post ground level fall where she sustained a right hip fracture. She was also noted to be in atrial fibrillation with a rapid ventricular response. She was started on amiodarone and admitted to the telemetry floor. The patient was evaluated by Dr. Red and at that time, the patient had become rate controlled and he had agreed that the patient was okay for surgery. The patient has no complaints at this time. She states she has tolerated her diet. Her pain is controlled. PHYSICAL EXAMINATION: VITAL SIGNS: Stable. The patient's heart rate when I visited was in the 80s, still an atrial fibrillation. GENERAL: The patient is resting comfortably in bed. She is awake, alert, and oriented x3. NEUROLOGIC: Jovon Coma Scale is 15. The patient appears in no distress. LUNGS: Clear bilaterally. HEART: Irregular rhythm with a regular rate consistent with her atrial fibrillation. ABDOMEN: Soft, flat and nontender with active bowel sounds. EXTREMITIES: Neurovascularly intact x4. ASSESSMENT/PLAN: 1. Status post mechanical fall. 2. Right hip fracture, awaiting surgery. 3. History of hypertension, gout, previous cerebrovascular accident and atrial fibrillation. 4. History of severe reaction to ketamine. PLAN: Plan will be to be to continue supportive care. Her amiodarone has been tapered down. She is n.p.o. after midnight. We will continue her pain control, pulmonary toilet, gastritis, mechanical VTE prophylaxis. Postoperatively, we will begin working with physical and occupational therapy and transition her to oral amiodarone at the appropriate time. Job ID: [id number]
[2019-07-27] MEDS: Hydrocortisone Sod Succ/PF 100 mg/2 ml Vial IVP SCH ×2 (00:22→05:09)
[2019-07-27] MEDS: Acetaminophen 1,000 MG in Premix Bag 1 BAG IVPB SCH ×2 (00:23→05:08)
--- NOTE | 2019-07-27 01:37 | CON ---
DATE OF CONSULTATION: PRIMARY CHIP MIXING MACHINE OPERATOR: Poli Mar MD HISTORY OF PRESENT ILLNESS: Ms. Chavez is a pleasant 78-year-old woman who unfortunately fell and broke her hip recently. She has been found to be in atrial fibrillation with a rapid rate. We have been asked to see her preoperatively. The patient was in sinus rhythm earlier this year. The patient did have a stroke documented at that time. Dr. Mar saw the patient in our office last month and found she was in atrial fibrillation with a slightly increased heart rate. The patient was told that she could take anticoagulants, but had not yet been started on anticoagulants. The patient is scheduled for hip surgery tomorrow. She is currently on IV amiodarone, which has improved her heart rate. REVIEW OF SYSTEMS: CONSTITUTIONAL: No significant weight gain or loss. VISION: No changes. HEARING: No changes. PULMONARY: No cough or wheezing. GASTROINTESTINAL: No nausea, vomiting, or diarrhea. SKIN: No rashes. NEUROLOGIC: No unilateral weakness or numbness. PSYCHIATRIC: No unusual depression or anxiety. MEDICATIONS: At home she was taking, 1. Carvedilol 3.125 mg twice a day. 2. Amlodipine. 3. Allopurinol. 4. Lisinopril. 5. Timolol eyedrops. PHYSICAL EXAMINATION: GENERAL: This is a pleasant elderly woman, resting comfortably, in no distress. VITAL SIGNS: Blood pressure 176/88, earlier with a heart rate of 123, now her heart rates are in the 90s. HEENT: Eyes, sclerae are nonicteric. Mouth, mucous membranes moist. NECK: Supple. No lymphadenopathy. LUNGS: Clear. CARDIAC: Irregularly irregular. ABDOMEN: Soft, nontender. EXTREMITIES: Warm and dry. No clubbing. No cyanosis. There is no edema. IMAGING DATA: The patient had an echocardiogram done earlier this year, normal left ventricular function, ejection fraction 65% to 70%. ASSESSMENT: 1. Atrial fibrillation, rate is not controlled. 2. Normal left ventricular function. PLAN: 1. Okay to proceed with surgical therapy as is being planned. 2. We will reduce the amiodarone dose to 16 mL/h. Job ID: [id number]
[2019-07-27] MEDS ORDERED: Ketorolac Tromethamine 30 MG/ML VIAL IVP PRN (04:33)
[2019-07-27] MEDS: Amiodarone 450 MG in Dextrose 5% in Water 250 ML IVPB SCH ×2 (04:35→19:24)
[2019-07-27] MEDS ORDERED: HumaLOG 300 UNITS/3 ML VIAL SC PRN (04:37)
[2019-07-27] MEDS ORDERED: hydrALAZINE 20 MG/ML VIAL SLOW IVP PRN (04:37)
[2019-07-27] MEDS ORDERED: Ondansetron PF 4 MG/2 ML Vial IVP PRN ×2 (04:38→08:04)
[2019-07-27] MEDS: Morphine 4 MG/ML VIAL SLOW IVP PRN (04:48)
[2019-07-27 05:07] LABS: #Eosinphils 0.1 thou/uL (0.0-0.7); #Lymphocytes 1.4 thou/uL (1.20-3.40); #Monocytes 0.4 thou/uL (0.11-0.59); #Neutrophils 8.1 thou/uL (1.40-6.50); %Basophils 0.3 % (0.0-1.0); %Eosinophils 0.7 % (0.0-10.0); %Lymphocytes 13.9 % (21.0-51.0); %Monocytes 3.6 % (0.0-10.0); %Neutrophils 81.4 % (42.0-75.0); Hemoglobin 14.1 g/dL (12.0-16.0); Mean Corpuscular HGB CONC 34.1 g/dL (32.0-36.0); Mean Corpuscular Hemoglobin 32.9 pg (27.0-31.0); Mean Corpuscular Volume 96.6 fL (78.0-98.0); Mean Platelet Volume 8.5 fL (7.4-10.4); Platelet Count 191 thou/uL (130-400); RBC Distribution Width 12.3 % (11.5-14.5); Red Blood Cell (RBC) Count 4.29 mill/uL (4.20-5.40); White Blood Cell (WBC) Count 9.9 thou/uL (4.8-10.8)
[2019-07-27 05:29] LABS: Anion Gap 11 mmol/L (10-20); BUN (Urea Nitrogen) 16 mg/dL (9.8-20.1); Calc. Creatinine Clearance 83 mL/min (70-130); Carbon Dioxide 22 mmol/L (23-31); Chloride 108 mmol/L (98-107); Estimated GFR-MDRD 57; Glucose 160 mg/dL (83-110); Magnesium 1.9 mg/dL (1.6-2.6); Phosphorus 2.5 mg/dL (2.3-4.7); Potassium 4.3 mmol/L (3.5-5.1); Sodium 137 mmol/L (136-145)
[2019-07-27] MEDS: Amlodipine 10 MG TAB PO SCH (05:50)
[2019-07-27] MEDS: Carvedilol 3.125 MG TAB PO SCH ×2 (05:51→21:32)
[2019-07-27] MEDS ORDERED: Fentanyl 100 MCG/2 ML VIAL ONE ×2 (07:28→10:22)
[2019-07-27] MEDS ORDERED: Phenylephrine HCL 10 MG/ML VIAL ONE (07:29)
[2019-07-27] MEDS ORDERED: Fleet Enema 133 ML BOT PR PRN (08:04)
[2019-07-27] MEDS ORDERED: Cepastat Lozenges 1 LOZ PO PRN (08:04)
[2019-07-27] MEDS ORDERED: Bisacodyl 10 MG SUPP PR PRN (08:04)
[2019-07-27] MEDS ORDERED: Ondansetron ODT 4 MG TAB PO PRN (08:04)
[2019-07-27] MEDS ORDERED: traMADol HCl 50 MG TAB PO PRN ×2 (08:04)
[2019-07-27] MEDS ORDERED: Milk Of Magnesia 30 ML UDCUP PO PRN (08:04)
[2019-07-27] MEDS ORDERED: Tranexamic Acid 1,000 MG/10 ML VIAL ONE (08:13)
[2019-07-27] MEDS ORDERED: Fish Oil 1,000 MG CAP PO SCH (09:00)
[2019-07-27] MEDS ORDERED: Lisinopril 20 MG TAB PO SCH (09:00)
[2019-07-27] MEDS ORDERED: Amlodipine 10 MG TAB PO SCH (09:00)
[2019-07-27] MEDS ORDERED: Polyethylene Glycol 3350 17 GM Packet PO SCH (09:00)
[2019-07-27] MEDS ORDERED: Promethazine HCl 25 MG/ML VIAL IM PRN (09:17)
[2019-07-27] MEDS ORDERED: Promethazine HCl 25 MG/ML VIAL SLOW IVP PRN (09:17)
[2019-07-27] MEDS ORDERED: PACU-Morphine 4MG/ML VIAL SLOW IVP PRN (09:17)
[2019-07-27] MEDS ORDERED: HYDROmorphone 2 MG/ML VIAL SLOW IVP PRN (09:17)
[2019-07-27] MEDS ORDERED: Ondansetron HCl/PF 4 MG/2 ML Vial IVP PRN (09:17)
[2019-07-27] MEDS ORDERED: PROPOFOL 200 MG/20 ML VIAL ONE (10:05)
[2019-07-27] MEDS ORDERED: Rocuronium Bromide 10 MG/ML (10ML VIAL) ONE (10:05)
[2019-07-27] MEDS ORDERED: Lidocaine 1% PF 5 ML VIAL ONE (10:05)
[2019-07-27] MEDS ORDERED: Glycopyrrolate 0.2 MG/ML 5 ML SYRINGE ONE (10:05)
[2019-07-27] MEDS ORDERED: Ondansetron PF 4 MG/2 ML Vial ONE (10:05)
[2019-07-27] MEDS ORDERED: PHENYLEPHRINE-NS 100 MCG/ML 10 ML SYRINGE ONE (10:05)
[2019-07-27] MEDS ORDERED: Promethazine HCl 25 MG/ML VIAL ONE (10:56)
--- NOTE | 2019-07-27 12:02 | RAD ---
Radiograph right hip 2 views: DATE: 07/27/2019 HISTORY: 78-year-old female with acute right femoral neck fracture. COMPARISON: 07/26/2019 FINDINGS: The femoral head and neck have been resected and replaced with metallic prosthesis with stem that [place] ches proximal femoral shaft. There is no acetabular metallic component. IMPRESSION: Treatment of the right acute femoral neck fracture with right hip replacement arthroplasty
[2019-07-27] MEDS: Fentanyl 100 MCG/2 ML VIAL SLOW IVP PRN ×2 (12:10→16:19)
[2019-07-27] MEDS: Senokot S 8.6-50 MG TAB PO SCH ×2 (12:25→21:31)
[2019-07-27] MEDS: Fish Oil 1,000 MG CAP PO SCH (12:25)
[2019-07-27] MEDS: Lisinopril 20 MG TAB PO SCH (12:26)
[2019-07-27] MEDS: Multivitamin W/ Minerals 1 TAB PO SCH (12:26)
[2019-07-27] MEDS: Famotidine/PF 20 mg/2ml Vial SLOW IVP SCH ×2 (12:30→21:34)
[2019-07-27] MEDS: Ferrous Gluconate 324 MG TAB PO SCH ×2 (12:30→21:32)
[2019-07-27] MEDS: Aspirin Chewable 81 MG TAB PO SCH ×3 (12:30→21:36)
[2019-07-27] MEDS: Polyethylene Glycol 3350 17 GM Packet PO SCH (12:31)
[2019-07-27] MEDS: Ibuprofen 200 MG TAB PO SCH ×2 (14:16→21:34)
[2019-07-27] MEDS: Sodium Chloride 0.9% 1,000 ML IV SCH (14:18)
[2019-07-27] MEDS: CEFAZOLIN 2 GM in Premix Bag 1 BAG IVPB SCH ×2 (14:19→17:30)
--- NOTE | 2019-07-27 18:24 | PRG ---
DATE OF SERVICE: SUBJECTIVE: Ms. Chavez is an 78-year-old female, status post ground level fall. She sustained a right hip fracture. She underwent ORIF of right hip fracture with Dr. Mckeon earlier today. Yesterday, patient came in with AFib with a rapid ventricular response. Patient was treated with amiodarone yesterday. Patient's rate was well controlled. Amiodarone was discontinued last night. Patient's rate has remained in the range of 70 to 80. Blood pressure is stable. Currently, patient has come back from PACU. Patient is alert, awake, and oriented x3. Her pain is well controlled. Other than that, she raised no concern. OBJECTIVE: GENERAL: Patient is lying down in bed comfortable with no acute respiratory distress. VITAL SIGNS: Heart rate 76, blood pressure 140/70, respiratory rate 18, O2 saturation 98% on room air, and temperature 98.5. LUNGS: Clear bilaterally. HEART: Regular rate and rhythm. ABDOMEN: Soft and nondistended. EXTREMITIES: Neurovascularly intact x4. ASSESSMENT: 1. Status post mechanical fall. 2. Right hip fracture. 3. Status post open reduction internal fixation of right hip fracture, postop day zero. 4. History of hypertension, gout, previous cerebrovascular accident, atrial fibrillation, and she has a history of severe reaction with ketamine. PLAN: Will be continue supportive care, continue pain control. Patient will have aspirin 81 mg b.i.d. for DVT prophylaxis tomorrow. Patient will be working with PT/OT. Anticipate placement in rehabilitation facility. Job ID: [id number] [facility]
[2019-07-27] MEDS: Acetaminophen 325 MG TAB PO PRN (21:30)
[2019-07-27] MEDS ORDERED: CEFAZOLIN 2 GM in Premix Bag 1 BAG IVPB SCH (22:00)
--- NOTE | 2019-07-28 00:38 | PRG ---
DATE OF SERVICE: SUBJECTIVE: The patient is hospital day 2, status post ground level fall, in which she sustained a right hip fracture. This morning, she underwent open reduction and internal fixation of the same. She tolerated this procedure well. Of note, the patient on presentation was in a heart rhythm of atrial fibrillation with rapid ventricular response. She has responded well to IV amiodarone. She has been tapering off her IV amiodarone, which is expected. If she remains rate controlled, we will likely transition her to p.o. We will discuss this with Cardiology. The patient was not able to work with Physical Therapy today due to timing of her returning to her room. Otherwise, she is tolerating a diet, and her pain is controlled. OBJECTIVE: VITAL SIGNS: Stable. The patient is afebrile. The patient's heart rate is in the 80s and occasionally up to the 90s. GENERAL: The patient is resting comfortably in bed. She is awake, alert, and oriented. HEENT: Unremarkable. LUNGS: Clear to auscultation. I reiterated the need for her to use her incentive spirometry. HEART: Irregularly regular, consistent with her atrial fibrillation. ABDOMEN: Soft with active bowel sounds. EXTREMITIES: Neurovascularly intact x4. Postop dressing is clean, dry, and intact. ASSESSMENT AND PLAN: 1. Status post ground level fall. 2. Status post open reduction and internal fixation of right hip fracture. 3. History of hypertension, gout, previous cerebrovascular accident and atrial fibrillation. Plan will be to continue supportive care tomorrow. Begin physical and occupational therapy and discuss placement. We will also continue her atrial fibrillation treatment per Cardiology. Job ID: [id number]
[2019-07-28] MEDS: Sodium Chloride 0.9% 1,000 ML IV SCH ×2 (01:00→09:20)
[2019-07-28] MEDS: Ibuprofen 200 MG TAB PO SCH ×3 (04:40→23:18)
[2019-07-28 05:19] LABS: Anion Gap 10 mmol/L (10-20); BUN (Urea Nitrogen) 13 mg/dL (9.8-20.1); Calc. Creatinine Clearance 95 mL/min (70-130); Calcium 10.1 mg/dL (7.8-10.44); Carbon Dioxide 24 mmol/L (23-31); Chloride 108 mmol/L (98-107); Estimated GFR-MDRD 66; Glucose 126 mg/dL (83-110); Potassium 4.2 mmol/L (3.5-5.1); Sodium 138 mmol/L (136-145)
[2019-07-28] MEDS: Amiodarone 450 MG in Dextrose 5% in Water 250 ML IVPB SCH (07:14)
[2019-07-28] MEDS: Fish Oil 1,000 MG CAP PO SCH (09:21)
[2019-07-28] MEDS: Amlodipine 10 MG TAB PO SCH (09:22)
[2019-07-28] MEDS: Carvedilol 3.125 MG TAB PO SCH ×2 (09:22→20:51)
[2019-07-28] MEDS: Lisinopril 20 MG TAB PO SCH (09:22)
[2019-07-28] MEDS: Aspirin Chewable 81 MG TAB PO SCH (09:22)
[2019-07-28] MEDS: Famotidine/PF 20 mg/2ml Vial SLOW IVP SCH ×2 (09:22→20:52)
[2019-07-28] MEDS: Multivitamin W/ Minerals 1 TAB PO SCH (09:22)
[2019-07-28] MEDS: Ferrous Gluconate 324 MG TAB PO SCH ×2 (09:23→20:51)
[2019-07-28] MEDS: Senokot S 8.6-50 MG TAB PO SCH ×2 (09:24→20:51)
[2019-07-28] MEDS: Polyethylene Glycol 3350 17 GM Packet PO SCH (09:25)
[2019-07-28] MEDS: Acetaminophen 325 MG TAB PO PRN (10:15)
[2019-07-28] MEDS ORDERED: Carvedilol 3.125 MG TAB PO SCH ×3 (11:00→21:00)
--- NOTE | 2019-07-28 11:18 | PRG ---
DATE OF SERVICE: 07/28/2019 SUBJECTIVE: Ms. Chavez underwent hip surgery and did very well. She has been up working with physical therapy this morning. She is still on intravenous amiodarone. OBJECTIVE: VITAL SIGNS: Her blood pressure earlier was 154/68, but the most recent blood pressure was 190 systolic. Pulse 101 to 110, atrial fibrillation. LUNGS: Clear. CARDIAC: Irregularly irregular. ABDOMEN: Soft and nontender. EXTREMITIES: Extremities are warm and dry. ASSESSMENT: 1. Atrial fibrillation, persistent. 2. Hypertension. 3. Postoperative status. PLAN: 1. Increase carvedilol dose. 2. Stop amiodarone. 3. Start at least Lovenox 40 mg every q.12 hours. The patient does have some history of nosebleeds. We have not started full anticoagulation yet. Dr. Mar to see the patient tomorrow and decide long-term about anticoagulation. He will be back to see her tomorrow. Job ID: [id number]
[2019-07-28] MEDS ORDERED: Allopurinol 300 MG TAB PO SCH (12:00)
--- NOTE | 2019-07-28 13:47 | PRG ---
DATE OF SERVICE: 07/28/2019 SUBJECTIVE: Ms. Chavez is an 78-year-old female, status post ground level fall. She sustained right hip fracture. She underwent ORIF of right hip fracture, postoperative day 1. She also has atrial fibrillation with rapid ventricular response. She had been treated with amiodarone. Cardiology, Dr. Red stopped amiodarone today and increased carvedilol doses. The patient also has Lovenox started today for postoperation and atrial fibrillation treatment. The patient reports she has been doing good. Pain is well controlled. She has been working with PT/OT. She walks using walker to go to the bathroom with assistance. OBJECTIVE: GENERAL: The patient is lying down in bed comfortably with no acute respiratory distress. VITAL SIGNS: Heart rate is 110, blood pressure is 150/70, respiratory rate is 18, O2 saturation is 94% on room air, and temperature is 98.5. LUNGS: Clear bilaterally. HEART: Regular rate and rhythm. ABDOMEN: Soft and nondistended. EXTREMITIES: Neurovascularly intact x4. Postoperative dressing clean, dry, and intact. ASSESSMENT: 1. Status post mechanical fall. 2. Right hip fracture. 3. Status post open reduction and internal fixation of right hip fracture, postoperative day 1. 4. Atrial fibrillation with rapid ventricular response, persistent. 5. History of hypertension, gout, previous cerebrovascular accident. PLAN: Plan will be to continue supportive care. Continue pain control. Atrial fibrillation and anticoagulation, follow Cardiology's plan. DVT prophylaxis with Lovenox. The patient will continue working with PT/OT. Anticipate placement in rehabilitation facility. Job ID: [id number]
--- NOTE | 2019-07-28 16:26 | EKG ---
Test Reason : Blood Pressure : / mmHG Vent. Rate : 123 BPM Atrial Rate : 119 BPM P-R Int : 000 ms QRS Dur : 068 ms QT Int : 316 ms P-R-T Axes : 000 039 079 degrees QTc Int : 452 ms Atrial fibrillation with rapid ventricular response Nonspecific T wave abnormality Abnormal ECG When compared with ECG of 06-NOV-2018 23:39, Atrial fibrillation has replaced Sinus rhythm Nonspecific T wave abnormality no longer evident in Anterior leads Confirmed by DR. Cayla CUI ([id number]) on 07/28/2019 4:25:45 PM Referred By: SILVA Confirmed By:DR. Cayla CUI
[2019-07-28] MEDS ORDERED: Acetaminophen 325 MG TAB PO SCH (18:00)
[2019-07-28] MEDS: Enoxaparin Sodium 40 MG/0.4 ML SYRINGE SC SCH (20:49)
[2019-07-28] MEDS: Gabapentin 300 MG CAP PO SCH (20:50)
--- NOTE | 2019-07-28 21:39 | OP ---
DATE OF PROCEDURE: 07/27/2019 PREOPERATIVE DIAGNOSIS: Femoral neck fracture, right. POSTOPERATIVE DIAGNOSIS: Femoral neck fracture, right. PROCEDURE PERFORMED: Right hemiarthroplasty of hip. GUARDIAN FAMILY MEMBER: Neto Guerra PA-C BLOOD LOSS: 200. SPECIMEN: None. DRAINS: None. COMPLICATION: None. DESCRIPTION OF PROCEDURE: The patient was placed in lateral decubitus position. Hip was prepped and draped in usual sterile fashion. We made an oblique incision in the greater trochanter. Dissection was carried down to the IT band, which was divided distally extended proximally. Self-retraining retractors were placed in the wound. Anterior one-third abductor mechanism was taken down using Bovie electrocautery. Hip capsule was incised. The femoral neck was cut and the femoral head was extracted and sized. The acetabulum was explored for loose bodies and loose bodies were removed. The acetabulum was irrigated. The femur was broached up to the appropriate size and appropriate size stem was impacted into place, along with the appropriate head. Hip was reduced without difficulty. Capsule was repaired with #2 Vicryl. Abductor was repaired with #2 Vicryl and #5 Ethibond. IT band was repaired with 2-0 Vicryl, #2 Quill, subcu closed with 0 Quill, skin was closed with 2-0 Monoderm and skin glue was applied. IMPLANTS: Size 6 Accolade II stem with -4 neck and a 50 mm Unitrax head. Job ID: [id number]
--- NOTE | 2019-07-28 22:35 | PRG ---
DATE OF SERVICE: 07/28/2019 SUBJECTIVE: The patient remains on the telemetry floor. The patient is status post ground level fall with a right hip fracture. The patient is postop today open reduction and internal fixation of her right hip fracture. The patient was treated with IV amiodarone for atrial fibrillation with rapid ventricular response and that has been stopped per Cardiology. The patient is currently sleeping in no distress. OBJECTIVE: VITAL SIGNS: Stable, afebrile, controlled rate, remains in atrial fibrillation on monitor car operator. GENERAL: Elderly female, resting comfortably, respirations even and unlabored, no respiratory distress. CARDIAC: Heart rate irregular at 94. ASSESSMENT: 1. Status post mechanical fall. 2. Right hip fracture. 3. Postop open reduction and internal fixation of right hip fracture. 4. Atrial fibrillation, currently rate controlled. 5. History of hypertension, gout, previous cerebrovascular accident. PLAN: Continue supportive care. Continue pain control. Continue mechanical and chemical DVT prophylaxis. Continue to have the patient work with physical and occupational therapy. Most likely if the patient's heart rate remains controlled for 24 hours, we can move the patient to the surgical floor. Job ID: [id number]
[2019-07-28] MEDS: Acetaminophen 500 MG TAB PO SCH (23:32)
[2019-07-29] MEDS: Sodium Chloride 0.9% 1,000 ML IV SCH ×2 (02:01→02:12)
[2019-07-29] MEDS: Ibuprofen 200 MG TAB PO SCH ×3 (06:09→16:58)
[2019-07-29] MEDS: Acetaminophen 500 MG TAB PO SCH ×3 (06:10→16:57)
[2019-07-29 06:22] LABS: Anion Gap 9 mmol/L (10-20); BUN (Urea Nitrogen) 15 mg/dL (9.8-20.1); Calc. Creatinine Clearance 98 mL/min (70-130); Carbon Dioxide 24 mmol/L (23-31); Chloride 107 mmol/L (98-107); Estimated GFR-MDRD 68; Glucose 114 mg/dL (83-110); Potassium 3.8 mmol/L (3.5-5.1); Sodium 136 mmol/L (136-145)
[2019-07-29] MEDS ORDERED: traMADol HCl 50 MG TAB PO PRN ×2 (08:35)
[2019-07-29] MEDS: Polyethylene Glycol 3350 17 GM Packet PO SCH (08:56)
[2019-07-29] MEDS: Gabapentin 300 MG CAP PO SCH (08:58)
[2019-07-29] MEDS: Ferrous Gluconate 324 MG TAB PO SCH (08:58)
[2019-07-29] MEDS: Senokot S 8.6-50 MG TAB PO SCH (08:59)
[2019-07-29] MEDS ORDERED: Aspirin Chewable 81 MG TAB PO SCH (09:00)
[2019-07-29] MEDS: Multivitamin W/ Minerals 1 TAB PO SCH (09:00)
[2019-07-29] MEDS ORDERED: Timolol 0.5% Ophth Soln 5 ml Bottle EA EYE SCH (09:00)
[2019-07-29] MEDS: Carvedilol 3.125 MG TAB PO SCH (09:02)
[2019-07-29] MEDS: Lisinopril 20 MG TAB PO SCH (09:03)
[2019-07-29] MEDS: Fish Oil 1,000 MG CAP PO SCH (09:04)
[2019-07-29] MEDS: Amlodipine 10 MG TAB PO SCH (09:04)
[2019-07-29] MEDS: Enoxaparin Sodium 40 MG/0.4 ML SYRINGE SC SCH (09:06)
[2019-07-29] MEDS ORDERED: Scopolamine 1.5 mg/72 hour Patch TOP SCH (10:45)
[2019-07-29] MEDS: Digoxin 0.25 MG TAB PO SCH ×2 (11:37→16:58)
--- NOTE | 2019-07-29 13:45 | PQF ---
BRENT OLSON HANG PA [id number] [address] [place] [address] [id number] CLINICAL DOCUMENTATION IMPROVEMENT CLARIFICATION FORM: ICD-10 Updated PLEASE DO AN ADDENDUM TO THE PROGRESS NOTE WITH ANY DOCUMENTATION UPDATES OR ADDITIONS AND CARRY THROUGH TO DC SUMMARY. THANK YOU. DATE: 07/29/19 ATTN: Dr. Chan, Please exercise your independent, professional judgment in responding to the clarification form. Clinical indicators are provided on the bottom of this form for your review Please check appropriate box(s): [ ] Paroxysmal Atrial Fibrillation [ x ] Atrial Fibrillation unspecified [ ] Other Diagnosis This is not my patient [ ] Unable to Determine In addition, please specify: Present on Admission (POA): [ x ] Yes [ ] No [ ] Unable to determine For continuity of documentation, please document condition throughout progress notes and discharge summary. Thank You. CLINICAL INDICATORS - SIGNS / SYMPTOMS / LABS / RESULTS AND LOCATION IN EMR 07/26 (Neda) " ECG: Atrial fibrillation with rapid ventricular response" 07/27 (Neda): "afib rate not controlled" 07/26 (Chrissy Hoang): "1200 patient arrived to unit from ER. hr is elevated from 120-145" RISKS FACTORS / RESULTS AND LOCATION IN EMR 07/26 (Hakan): "hx of HTN, CVA" TREATMENTS / RESULTS AND LOCATION I EMR Telemetry orders 07/26 Antiarrhythmic: Amiodarone drip 07/26-07/28 per orders Anti-thrombotic therapy--> asa 81 mg BID 07/27-07/28 to daily 07/29 per orders (This form is maintained as a part of the permanent medical record) 2014 [employer], [employer]. All Rights Reserved Olivia Valdes, RN, BSN, CCDS [email or web address]
[2019-07-29 15:54] VITALS: BP 123/60; TEMP 98.3
--- NOTE | 2019-07-29 16:35 | PRG ---
DATE OF SERVICE: 07/29/2019 SUBJECTIVE: Ms. Chavez is doing well. No current complaints. Heart rate appears stable. OBJECTIVE: VITAL SIGNS: Blood pressure 120/60, pulse 87, and temperature 98.3. LUNGS: Clear to auscultation. HEART: Irregularly irregular. ABDOMEN: Soft, nontender, nondistended. EXTREMITIES: No edema. PERTINENT LABORATORY DATA: Hemoglobin 14.1. IMPRESSION: 1. Chronic atrial fibrillation. 2. Recent hip fracture. RECOMMENDATIONS: 1. Again discussed risks and benefits of anticoagulation therapy. a full dose of treatment due to previous nosebleeds. She did state she would take half dose Eliquis. I did state there was no data using half dose Eliquis and CVA prevention. We would recommend Eliquis 2.5 mg p.o. b.i.d. 2. Continue carvedilol 12.5 mg p.o. b.i.d., digoxin 0.125 q.a.m. 3. Discontinue enoxaparin once she is started Eliquis. 4. Otherwise, from my standpoint, I have no further recommendations. Okay from my standpoint to transfer to rehab. Job ID: [id number]
[2019-07-29] MEDS ORDERED: Aspirin 81 mg Enteric Coated Tablet PO SCH (21:00)
[2019-07-30] MEDS ORDERED: Digoxin 0.125 MG TAB PO SCH (09:00)
--- NOTE | 2019-07-30 14:50 | DIS ---
DATE OF ADMISSION: 07/26/2019 DATE OF DISCHARGE: 07/29/2019 ADMISSION DIAGNOSES: 1. Status post mechanical fall. 2. Right hip fracture. 3. Atrial fibrillation with rapid ventricular response, persistent. 4. History of hypertension, gout, previous cerebrovascular accident, resolved. DISCHARGE DIAGNOSES: 1. Status post mechanical fall. 2. Right hip fracture, status post open reduction and internal fixation of right hip fracture. 3. New onset atrial fibrillation with rapid ventricular response, resolved, rate controlled. 4. History of hypertension, gout, previous cerebrovascular vascular accident, resolved. CONSULTING PHYSICIANS: Dr. Red, Dr. Ean Mckeon. PROCEDURE: ORIF of right hip fracture. HOSPITAL COURSE: Ms. Chavez is an 78-year-old female, status post ground level fall. She sustained right hip fracture. She underwent ORIF of right hip fracture with Dr. Mckeon, postop day 2 today. She also developed atrial fibrillation with right ventricular response. She was treated with amiodarone IV per protocol. Her rate is well controlled. Amiodarone was stopped. Cardiology team, Dr. Mar started digoxin and increased carvedilol dose. Currently, patient's rate is controlled, ventricular response is 70 to 80 per minute, blood pressure stable. The patient tolerated regular diet. The patient is able to work with PT/OT. The patient did have Lovenox for DVT and atrial fibrillation treatment. Cardiology team recommended lower dose Lovenox for DVT prophylaxis before discharge to rehabilitation facility. PHYSICAL EXAMINATION: GENERAL: The patient is lying down in bed, comfortable. No acute respiratory distress. GCS 15. SKIN: [place] and moist. VITAL SIGNS: Heart rate is 80, blood pressure 130/80, respiratory rate 18, O2 saturation 95% on room air, and temperature 98.5. LUNGS: Clear bilaterally. HEART: Irregularly irregular rhythm, 80 per minute. ABDOMEN: Soft, nondistended. EXTREMITIES: Neurovascularly intact x4. Postop dressing clean, dry, and intact. DISCHARGE DISPOSITION: Rehabilitation facility. DISCHARGE CONDITION: Fair. DISCHARGE INSTRUCTIONS: The patient is to take medication as directed. The patient is to continue working with PT/OT. The patient is to have low sodium diet. The patient is to see Dr. Mckeon in 10 to 14 day. DISCHARGE MEDICATIONS: 1. Tylenol. 2. Lovenox. 3. Resume on home med including. a. Amlodipine. b. Allopurinol. c. Aspirin. d. Ferrous sulfate. e. Fish oil. f. Gabapentin. g. Hydralazine. h. Ibuprofen. i. MiraLAX. j. Tramadol. Job ID: [id number]
== END 2019-07-29 19:16 | DRG 470 ==
LOC: ERS 08:42 → SURG A 11:38 → 2SE 11:39 → ERS 11:39 → 2SE 15:03
PROVIDERS: ADMIT Orthopaedic Surgery; ATTEND Orthopaedic Surgery
PROC: 0SRR0JZ Replacement of Right Hip Joint, Femoral Surface with Synthetic Substitute, Open Approach (ICD-10-PCS; principal; 2019-07-27)
DX: S72.001A Fracture of unspecified part of neck of right femur, initial encounter for closed fracture (principal); I48.19 Other persistent atrial fibrillation; M10.9 Gout, unspecified; I10 Essential (primary) hypertension; W07.XXXA Fall from chair, initial encounter; E78.5 Hyperlipidemia, unspecified; G47.30 Sleep apnea, unspecified; H40.9 Unspecified glaucoma; Z87.442 Personal history of urinary calculi; I25.2 Old myocardial infarction; I69.398 Other sequelae of cerebral infarction; Z90.710 Acquired absence of both cervix and uterus; Z79.82 Long term (current) use of aspirin; Z79.899 Other long term (current) drug therapy; Z88.1 Allergy status to other antibiotic agents; Z88.5 Allergy status to narcotic agent; Z88.8 Allergy status to other drugs, medicaments and biological substances
CPT/HCPCS: 36415; 36416; 71045; 72170; 80048; 80053; 81001; 82533; 83735; 84100; 84443; 84484; 85025; 85610; 85730; 86850; 86900; 86901; 93005; 93010; 96361; 96365; 96375; 96376; G0390; J0131; J0282; J0690; J1650; J1720; J1885; J2001; J2270; J2370; J2405; J2550; J2704; J3010; J3475; J7070; S0028

== ENCOUNTER → 2019-12-06 | Day surgery (SDC) | payer MEDICARE ==
--- NOTE | 2019-12-06 11:22 | RAD ---
TWO VIEWS OF THE RIGHT HIP: COMPARISON: 07/27/2019. HISTORY: Right hip arthroplasty. FINDINGS: Two views of the right hip show the patient to be status post right hip arthroplasty. No perihardwar e lucency or fracture is seen. IMPRESSION: Status post right hip arthroplasty without evidence of complication. POS: [facility]
--- NOTE | 2019-12-06 11:36 | RAD ---
Right hip aspiration fluoroscopic guided HISTORY: Right hip pain. FINDINGS: After explaining the procedure and answering all questions, Metallic Yarn Slitting Machine Operator images were obtained, varinder wing total hip prosthesis in place without apparent hardware lucency. Sterile technique, buffered local anesthesia, fluoroscopic guidance, and an anterior approach were us ed to carefully advance the tip of a 22-gauge spinal needle to the joint capsule at the level of the prosthetic femoral neck. No fluid was able to be aspirated immediately. Approximately 4 cc sterile saline was carefully instilled into the joint capsule. After a brief pause , approximately 2 cc slightly blood-tinged liquid was then reaspirated. Needle was removed. Patient tolerated the procedure well and was dismissed in good condition. Fluoroscopy time 0.4 minutes. IMPRESSION : Technically successful right hip aspiration. No fluid present initially. Small amount of flushed sali ne was aspirated and sent to laboratory for analysis.
[2019-12-06 12:36] LABS: RBC Count-Automated (BF) 16496 /cumm; WBC/Nucleated-Auto (BF) 305 uL
[2019-12-06 13:03] LABS: BF Color Red; Body Fluid Source Synovial Fluid; Clarity Cloudy/Turbid (Clear)
[2019-12-06 13:04] LABS: Tube # 1
[2019-12-06 13:06] LABS: BF Segmented Neutrophils 56 %; Cell Count Non Hematic 13 %; Eosinophils 2 %; Lymphocytes 28 %
== END ==
LOC: SPEC 08:33
PROVIDERS: ATTEND Orthopaedic Surgery
DX: M25.551 Pain in right hip (principal); Z96.649 Presence of unspecified artificial hip joint; Z88.1 Allergy status to other antibiotic agents; Z88.5 Allergy status to narcotic agent; Z88.8 Allergy status to other drugs, medicaments and biological substances
CPT/HCPCS: 27093; 85060; 87070; 87205; 89051

== ENCOUNTER 2021-04-02 15:17 | Emergency (ER) | payer MEDICARE ==
[2021-04-02 16:16] LABS: #Eosinphils 0.3 thou/uL (0.0-0.7); #Lymphocytes 2.3 thou/uL (1.20-3.40); #Monocytes 0.6 thou/uL (0.11-0.59); #Neutrophils 4.8 thou/uL (1.40-6.50); %Basophils 0.2 % (0.0-1.0); %Lymphocytes 28.9 % (21.0-51.0); %Monocytes 7.8 % (0.0-10.0); %Neutrophils 59.1 % (42.0-75.0); Hemoglobin 13.8 g/dL (12.0-16.0); Mean Corpuscular HGB CONC 33.8 g/dL (32.0-36.0); Mean Corpuscular Hemoglobin 33.1 pg (27.0-31.0); Mean Corpuscular Volume 98.2 fL (78.0-98.0); Mean Platelet Volume 8.4 fL (7.4-10.4); Platelet Count 186 thou/uL (130-400); Red Blood Cell (RBC) Count 4.17 mill/uL (4.20-5.40); White Blood Cell (WBC) Count 8.1 thou/uL (4.8-10.8)
[2021-04-02 16:42] LABS: ALT (SGPT) 94 U/L (8-55); AST (SGOT) 116 U/L (5-34); Albumin 3.5 g/dL (3.4-4.8); Alkaline Phosphatase 109 U/L (40-110); Anion Gap 15 mmol/L (10-20); BUN (Urea Nitrogen) 14 mg/dL (9.8-20.1); Bilirubin, Total 0.4 mg/dL (0.2-1.2); Calc. Creatinine Clearance 0 mL/min (70-130); Calcium 10.4 mg/dL (7.8-10.44); Carbon Dioxide 22 mmol/L (23-31); Chloride 105 mmol/L (98-107); Globulin 3.7 g/dL (2.4-3.5); Glucose 134 mg/dL (83-110); Potassium 4.5 mmol/L (3.5-5.1); Protein, Total 7.2 g/dL (5.8-8.1); Sodium 137 mmol/L (136-145)
[2021-04-02 17:02] LABS: SARS-CoV-2 NAA Rapid Test Not Detected (NotDetected)
[2021-04-02 18:22] LABS: Bacteria/HPF None Seen HPF (None Seen); Bilirubin Negative (Negative); Blood, Urine Negative (Negative); Clarity Clear (Clear); Glucose, Urine (Dipstick) 50 mg/dL (Negative); Ketone, Urine Negative (Negative); Leukocyte 250 Leu/uL (Negative); Nitrite Negative (Negative); Protein, Urine (Dipstick) 30 mg/dL (Neg-Trace); RBC/HPF 0-3 HPF (0-3); Specific Gravity, Urine 1.015 (1.002-1.036); Squamous Epithelial 0-3 HPF (0-3); Urobilinogen Normal mg/dL (Less than 2); WBC/HPF 21-50 HPF (0-3); pH, Urine 5.5 (5.0-9.0)
== END 2021-04-02 19:25 | disposition home or self-care (01) ==
LOC: ERS 15:17
DX: B34.9 Viral infection, unspecified (principal); I10 Essential (primary) hypertension; Z20.822 Contact with and (suspected) exposure to COVID-19; I25.2 Old myocardial infarction; Z79.82 Long term (current) use of aspirin; Z79.899 Other long term (current) drug therapy
CPT/HCPCS: 0241U; 71045; 80053; 84484; 85025; 93005; 36415; 81003; 81015

== ENCOUNTER 2023-07-17 15:23 | Inpatient (IN) | payer MEDICARE ==
[2023-07-17] MEDS ORDERED: Ondansetron PF 4 MG/2 ML Vial ONE ×3 (16:18→21:00)
[2023-07-17] MEDS ORDERED: Morphine 4 MG/ML VIAL ONE ×2 (16:18→17:58)
[2023-07-17 16:36] LABS: #Basophils 0.1 thou/uL (0.0-0.2); #Eosinphils 0.2 thou/uL (0.0-0.7); #Monocytes 0.7 thou/uL (0.11-0.59); #Neutrophils 7.3 thou/uL (1.40-6.50); %Basophils 0.5 % (0.0-1.0); %Eosinophils 1.9 % (0.0-10.0); %Lymphocytes 21.1 % (21.0-51.0); %Monocytes 6.3 % (0.0-10.0); %Neutrophils 69.9 % (42.0-75.0); Hematocrit 41.9 % (36.0-47.0); Hemoglobin 13.7 g/dL (12.0-16.0); Mean Corpuscular HGB CONC 32.7 g/dL (32.0-36.0); Mean Corpuscular Hemoglobin 31.1 pg (27.0-31.0); Mean Platelet Volume 11.2 fL (7.4-10.4); Platelet Count 225 10x3/uL (130-400); RBC Distribution Width 12.9 % (11.5-14.5); Red Blood Cell (RBC) Count 4.41 mill/uL (4.20-5.40); White Blood Cell (WBC) Count 10.5 10x3/uL (4.8-10.8)
[2023-07-17 16:58] LABS: ALT (SGPT) 16 U/L (8-55); AST (SGOT) 18 U/L (5-34); Albumin 4.1 g/dL (3.4-4.8); Alkaline Phosphatase 100 U/L (40-110); Anion Gap 14 mmol/L (10-20); BUN (Urea Nitrogen) 14 mg/dL (9.8-20.1); Bilirubin, Total 0.4 mg/dL (0.2-1.2); Calc. Creatinine Clearance 0 mL/min (70-130); Calcium 10.9 mg/dL (7.8-10.44); Carbon Dioxide 26 mmol/L (23-31); Chloride 103 mmol/L (98-107); Estimated GFR 55; Globulin 3.4 g/dL (2.4-3.5); Glucose 127 mg/dL (83-110); Lipase 21 U/L (8-78); Potassium 4.3 mmol/L (3.5-5.1); Protein, Total 7.5 g/dL (5.8-8.1); Sodium 139 mmol/L (136-145)
[2023-07-17 17:03] LABS: Troponin I Less than 0.010 ng/mL (< 0.028)
[2023-07-17] MEDS ORDERED: Ondansetron PF 4 MG/2 ML Vial IVP PRN (17:49)
[2023-07-17] MEDS ORDERED: Senokot S 8.6-50 MG TAB PO PRN (17:51)
[2023-07-17] MEDS ORDERED: Ondansetron ODT 4 MG TAB ONE (17:58)
[2023-07-17] MEDS ORDERED: dilTIAZem 125 MG/25 ML SDV ONE (17:58)
[2023-07-17] MEDS ORDERED: fentaNYL 50 mcg/mL 1 mL Vial SLOW IVP SCH (18:15)
[2023-07-17] MEDS ORDERED: fentaNYL 50 mcg/mL 1 mL Vial ONE (18:39)
[2023-07-17] MEDS ORDERED: cefTRIAXone\\ROCEPHIN 2 GM in Sodium Chloride 0.9% 100 ML IVPB SCH (18:45)
[2023-07-17] MEDS ORDERED: Piperacillin/Tazobactam 3.375 GM in Sodium Chloride 0.9% 100 ML IVPB SCH (19:15)
[2023-07-17] MEDS ORDERED: Piperacillin/Tazobactam 3.375 GM VIAL ONE (19:19)
[2023-07-17] MEDS ORDERED: Sodium Chloride 0.9% 100 ML ONE (19:20)
[2023-07-17] MEDS: Sodium Chloride 0.9% 1,000 ML IV SCH (19:28)
[2023-07-17 19:29] LABS: Bacteria/HPF 4+ HPF (None Seen); Bilirubin Negative (Negative); Blood, Urine 3+ (Negative); CAUTI Indications for Culture Dysuria,urgency,freq; Clarity Extra Turbid (Clear); Glucose, Urine (Dipstick) Normal (Negative); Ketone, Urine Trace mg/dL (Negative); Leukocyte 500 Leu/uL (Negative); Nitrite Negative (Negative); Protein, Urine (Dipstick) 100 mg/dL (Neg-Trace); RBC/HPF Greater than 50 HPF (0-3); Specific Gravity, Urine 1.013 (1.002-1.036); Squamous Epithelial None Seen HPF (0-3); Urine Culture Reflex Yes Yes; Urobilinogen Normal mg/dL (Less than 2); WBC/HPF Greater than 50 HPF (0-3); pH, Urine 5.5 (5.0-9.0)
[2023-07-17] MEDS ORDERED: fentaNYL PF 100 MCG/2 ML SYRINGE ONE (19:47)
[2023-07-17] MEDS ORDERED: hydrALAZINE 20 MG/ML VIAL SLOW IVP SCH (20:00)
[2023-07-17] MEDS ORDERED: hydrALAZINE 20 MG/ML VIAL ONE (20:08)
[2023-07-17] MEDS ORDERED: SUGAMMADEX SODIUM 200 MG/2 ML VIAL ONE (20:46)
[2023-07-17] MEDS ORDERED: Rocuronium Bromide 10 MG/ML (10ML VIAL) ONE (21:00)
[2023-07-17] MEDS ORDERED: Succinylcholine 200 MG/10 ml SYRINGE FS ONE (21:00)
[2023-07-17] MEDS ORDERED: Lidocaine 1% PF 5 ML VIAL ONE (21:00)
[2023-07-17] MEDS ORDERED: PROPOFOL 200 MG/20 ML VIAL ONE (21:00)
[2023-07-17] MEDS ORDERED: Promethazine HCl 25 MG/ML VIAL IM PRN (22:06)
[2023-07-17] MEDS ORDERED: Ondansetron HCl/PF 4 MG/2 ML Vial IVP PRN (22:06)
[2023-07-17] MEDS: Gabapentin 300 MG CAP PO SCH (23:52)
[2023-07-17] MEDS: Famotidine/PF 20 mg/2ml Vial SLOW IVP SCH (23:55)
[2023-07-17] MEDS: Piperacillin/Tazobactam 3.375 GM in Sodium Chloride 0.9% 100 ML IVPB SCH (23:59)
[2023-07-18 04:18] LABS: #Monocytes 1.1 thou/uL (0.11-0.59); #Neutrophils 12.2 thou/uL (1.40-6.50); %Basophils 0.3 % (0.0-1.0); %Lymphocytes 8.7 % (21.0-51.0); %Monocytes 7.7 % (0.0-10.0); Hematocrit 35.2 % (36.0-47.0); Hemoglobin 11.6 g/dL (12.0-16.0); Mean Corpuscular Hemoglobin 31.4 pg (27.0-31.0); Mean Corpuscular Volume 95.4 fl (78.0-98.0); Mean Platelet Volume 10.7 fL (7.4-10.4); Platelet Count 195 10x3/uL (130-400); RBC Distribution Width 13.2 % (11.5-14.5); Red Blood Cell (RBC) Count 3.69 mill/uL (4.20-5.40); White Blood Cell (WBC) Count 14.7 10x3/uL (4.8-10.8)
[2023-07-18 04:44] LABS: ALT (SGPT) 13 U/L (8-55); AST (SGOT) 13 U/L (5-34); Albumin 3.3 g/dL (3.4-4.8); Alkaline Phosphatase 78 U/L (40-110); Anion Gap 12 mmol/L (10-20); BUN (Urea Nitrogen) 14 mg/dL (9.8-20.1); Bilirubin, Total 0.4 mg/dL (0.2-1.2); Calc. Creatinine Clearance 87 mL/min (70-130); Calcium 9.7 mg/dL (7.8-10.44); Carbon Dioxide 22 mmol/L (23-31); Chloride 108 mmol/L (98-107); Estimated GFR 65; Globulin 3.1 g/dL (2.4-3.5); Glucose 136 mg/dL (83-110); Potassium 4.2 mmol/L (3.5-5.1); Protein, Total 6.4 g/dL (5.8-8.1); Sodium 138 mmol/L (136-145)
[2023-07-18] MEDS: Piperacillin/Tazobactam 3.375 GM in Sodium Chloride 0.9% 100 ML IVPB SCH ×3 (05:35→21:07)
[2023-07-18] MEDS: dilTIAZem 125 MG in Sodium Chloride 0.9% 100 ML IVPB SCH (05:36)
[2023-07-18] MEDS: Famotidine/PF 20 mg/2ml Vial SLOW IVP SCH (09:55)
[2023-07-18] MEDS: Lisinopril 10 MG TAB PO SCH (09:55)
[2023-07-18] MEDS: Aspirin Chewable 81 MG TAB PO SCH (09:55)
[2023-07-18] MEDS: Gabapentin 300 MG CAP PO SCH ×2 (09:56→20:13)
[2023-07-18] MEDS: HYDROcodone/Acetaminophen 5/325 mg Tablet PO PRN (12:02)
[2023-07-18] MEDS ORDERED: dilTIAZem CD 300 MG CAP PO SCH (12:15)
[2023-07-18] MEDS: Sodium Chloride 0.9% 1,000 ML IV SCH ×3 (13:51→21:08)
[2023-07-18] MEDS: Famotidine 20 MG TAB PO SCH (20:14)
[2023-07-18] MEDS: Apixaban 2.5 MG TAB PO SCH (20:14)
[2023-07-18] MEDS ORDERED: OLANZapine 10 MG VIAL IM SCH (23:00)
[2023-07-19] MEDS ORDERED: Lorazepam 2 MG/ML VIAL SLOW IVP SCH (00:45)
[2023-07-19] MEDS ORDERED: hydrALAZINE 20 MG/ML VIAL ONE (03:46)
[2023-07-19] MEDS ORDERED: hydrALAZINE 20 MG/ML VIAL SLOW IVP SCH (04:00)
[2023-07-19] MEDS: dilTIAZem 125 MG in Sodium Chloride 0.9% 100 ML IVPB SCH (04:22)
[2023-07-19] MEDS: Piperacillin/Tazobactam 3.375 GM in Sodium Chloride 0.9% 100 ML IVPB SCH ×3 (05:17→21:16)
[2023-07-19 07:02] LABS: Hematocrit 37.5 % (36.0-47.0); Hemoglobin 11.9 g/dL (12.0-16.0); Mean Corpuscular HGB CONC 31.7 g/dL (32.0-36.0); Mean Corpuscular Hemoglobin 31.1 pg (27.0-31.0); Mean Corpuscular Volume 97.9 fl (78.0-98.0); Mean Platelet Volume 11.1 fL (7.4-10.4); Platelet Count 180 10x3/uL (130-400); RBC Distribution Width 13.4 % (11.5-14.5); Red Blood Cell (RBC) Count 3.83 mill/uL (4.20-5.40); White Blood Cell (WBC) Count 12.9 10x3/uL (4.8-10.8)
[2023-07-19 08:02] LABS: Anion Gap 12 mmol/L (10-20); BUN (Urea Nitrogen) 15 mg/dL (9.8-20.1); Calc. Creatinine Clearance 82 mL/min (70-130); Calcium 10.5 mg/dL (7.8-10.44); Carbon Dioxide 19 mmol/L (23-31); Chloride 108 mmol/L (98-107); Estimated GFR 61; Glucose 131 mg/dL (83-110); Potassium 4.3 mmol/L (3.5-5.1); Sodium 135 mmol/L (136-145)
[2023-07-19] MEDS: dilTIAZem CD 300 MG CAP PO SCH (10:58)
[2023-07-19] MEDS: Apixaban 2.5 MG TAB PO SCH ×2 (11:12→21:17)
[2023-07-19] MEDS: Lisinopril 10 MG TAB PO SCH (11:13)
[2023-07-19] MEDS: Aspirin Chewable 81 MG TAB PO SCH (11:13)
[2023-07-19] MEDS: Famotidine 20 MG TAB PO SCH ×2 (11:18→21:17)
[2023-07-19] MEDS: Gabapentin 300 MG CAP PO SCH ×2 (11:19→21:17)
[2023-07-19] MEDS: Polyethylene Glycol 3350 17 GM Packet PO SCH (11:22)
[2023-07-19] MEDS: Sodium Chloride 0.9% 1,000 ML IV SCH ×2 (14:06→21:16)
[2023-07-20 04:34] LABS: #Eosinphils 0.2 thou/uL (0.0-0.7); #Monocytes 0.8 thou/uL (0.11-0.59); #Neutrophils 7.8 thou/uL (1.40-6.50); %Basophils 0.4 % (0.0-1.0); %Eosinophils 1.8 % (0.0-10.0); %Lymphocytes 15.1 % (21.0-51.0); %Monocytes 7.8 % (0.0-10.0); %Neutrophils 74.5 % (42.0-75.0); Hematocrit 37.7 % (36.0-47.0); Hemoglobin 11.9 g/dL (12.0-16.0); Mean Corpuscular HGB CONC 31.6 g/dL (32.0-36.0); Mean Corpuscular Hemoglobin 30.8 pg (27.0-31.0); Mean Corpuscular Volume 97.7 fl (78.0-98.0); Mean Platelet Volume 11.5 fL (7.4-10.4); Platelet Count 206 10x3/uL (130-400); RBC Distribution Width 13.5 % (11.5-14.5); Red Blood Cell (RBC) Count 3.86 mill/uL (4.20-5.40); White Blood Cell (WBC) Count 10.5 10x3/uL (4.8-10.8)
[2023-07-20 05:03] LABS: ALT (SGPT) 12 U/L (8-55); AST (SGOT) 13 U/L (5-34); Albumin 3.4 g/dL (3.4-4.8); Alkaline Phosphatase 89 U/L (40-110); Anion Gap 12 mmol/L (10-20); BUN (Urea Nitrogen) 16 mg/dL (9.8-20.1); Bilirubin, Total 0.5 mg/dL (0.2-1.2); Calc. Creatinine Clearance 89 mL/min (70-130); Calcium 10.5 mg/dL (7.8-10.44); Carbon Dioxide 21 mmol/L (23-31); Chloride 110 mmol/L (98-107); Estimated GFR 67; Globulin 3.2 g/dL (2.4-3.5); Glucose 116 mg/dL (83-110); Potassium 3.8 mmol/L (3.5-5.1); Protein, Total 6.6 g/dL (5.8-8.1); Sodium 139 mmol/L (136-145)
[2023-07-20] MEDS: Piperacillin/Tazobactam 3.375 GM in Sodium Chloride 0.9% 100 ML IVPB SCH (06:00)
[2023-07-20] MEDS: Lactated Ringer's 1,000 ML IV SCH ×2 (09:13→20:39)
[2023-07-20] MEDS: Famotidine 20 MG TAB PO SCH ×2 (09:13→20:39)
[2023-07-20] MEDS: dilTIAZem CD 300 MG CAP PO SCH (09:13)
[2023-07-20] MEDS: Aspirin Chewable 81 MG TAB PO SCH (09:13)
[2023-07-20] MEDS: Gabapentin 300 MG CAP PO SCH ×2 (09:13→20:39)
[2023-07-20] MEDS: Apixaban 2.5 MG TAB PO SCH ×2 (09:13→20:40)
[2023-07-20] MEDS: Polyethylene Glycol 3350 17 GM Packet PO SCH (09:13)
[2023-07-20] MEDS: Lisinopril 10 MG TAB PO SCH (09:13)
[2023-07-20] MEDS: cefTRIAXone\\ROCEPHIN 2 GM in Sodium Chloride 0.9% 100 ML IVPB SCH (11:28)
[2023-07-21 05:01] LABS: #Basophils 0.1 thou/uL (0.0-0.2); #Eosinphils 0.2 thou/uL (0.0-0.7); #Monocytes 0.7 thou/uL (0.11-0.59); #Neutrophils 5.8 thou/uL (1.40-6.50); %Basophils 0.6 % (0.0-1.0); %Eosinophils 2.8 % (0.0-10.0); %Monocytes 7.7 % (0.0-10.0); %Neutrophils 67.4 % (42.0-75.0); Hematocrit 36.4 % (36.0-47.0); Hemoglobin 11.7 g/dL (12.0-16.0); Mean Corpuscular HGB CONC 32.1 g/dL (32.0-36.0); Mean Corpuscular Hemoglobin 31.1 pg (27.0-31.0); Mean Corpuscular Volume 96.8 fl (78.0-98.0); Mean Platelet Volume 10.9 fL (7.4-10.4); Platelet Count 224 10x3/uL (130-400); RBC Distribution Width 13.2 % (11.5-14.5); Red Blood Cell (RBC) Count 3.76 mill/uL (4.20-5.40); White Blood Cell (WBC) Count 8.7 10x3/uL (4.8-10.8)
[2023-07-21 05:27] LABS: ALT (SGPT) 14 U/L (8-55); AST (SGOT) 14 U/L (5-34); Albumin 3.2 g/dL (3.4-4.8); Alkaline Phosphatase 73 U/L (40-110); Anion Gap 12 mmol/L (10-20); BUN (Urea Nitrogen) 14 mg/dL (9.8-20.1); Bilirubin, Total 0.3 mg/dL (0.2-1.2); Calc. Creatinine Clearance 101 mL/min (70-130); Calcium 10.3 mg/dL (7.8-10.44); Carbon Dioxide 23 mmol/L (23-31); Chloride 106 mmol/L (98-107); Estimated GFR 74; Globulin 3.3 g/dL (2.4-3.5); Glucose 114 mg/dL (83-110); Potassium 3.7 mmol/L (3.5-5.1); Protein, Total 6.5 g/dL (5.8-8.1); Sodium 137 mmol/L (136-145)
[2023-07-21] MEDS: Aspirin Chewable 81 MG TAB PO SCH (09:10)
[2023-07-21] MEDS: dilTIAZem CD 300 MG CAP PO SCH (09:10)
[2023-07-21] MEDS: Polyethylene Glycol 3350 17 GM Packet PO SCH (09:10)
[2023-07-21] MEDS: Apixaban 2.5 MG TAB PO SCH ×2 (09:11→21:48)
[2023-07-21] MEDS: Gabapentin 300 MG CAP PO SCH ×2 (09:11→21:48)
[2023-07-21] MEDS: Famotidine 20 MG TAB PO SCH ×2 (09:11→21:48)
[2023-07-21] MEDS: Lisinopril 10 MG TAB PO SCH (09:11)
[2023-07-21] MEDS: HYDROcodone/Acetaminophen 5/325 mg Tablet PO PRN (11:11)
[2023-07-21] MEDS: cefTRIAXone\\ROCEPHIN 2 GM in Sodium Chloride 0.9% 100 ML IVPB SCH (11:12)
[2023-07-21] MEDS: Lactated Ringer's 1,000 ML IV SCH ×2 (11:12→13:54)
[2023-07-22] MEDS: Lactated Ringer's 1,000 ML IV SCH ×2 (00:45→14:50)
[2023-07-22] MEDS ORDERED: Lisinopril 10 MG TAB PO SCH ×2 (01:15→09:00)
[2023-07-22 04:55] LABS: #Basophils 0.1 thou/uL (0.0-0.2); #Eosinphils 0.3 thou/uL (0.0-0.7); #Monocytes 0.6 thou/uL (0.11-0.59); #Neutrophils 5.4 thou/uL (1.40-6.50); %Basophils 0.6 % (0.0-1.0); %Eosinophils 3.6 % (0.0-10.0); %Lymphocytes 23.6 % (21.0-51.0); %Monocytes 7.1 % (0.0-10.0); %Neutrophils 64.7 % (42.0-75.0); Hematocrit 36.3 % (36.0-47.0); Hemoglobin 11.7 g/dL (12.0-16.0); Mean Corpuscular HGB CONC 32.2 g/dL (32.0-36.0); Mean Corpuscular Hemoglobin 31.1 pg (27.0-31.0); Mean Corpuscular Volume 96.5 fl (78.0-98.0); Mean Platelet Volume 10.6 fL (7.4-10.4); Platelet Count 244 10x3/uL (130-400); RBC Distribution Width 13.1 % (11.5-14.5); Red Blood Cell (RBC) Count 3.76 mill/uL (4.20-5.40); White Blood Cell (WBC) Count 8.3 10x3/uL (4.8-10.8)
[2023-07-22 05:27] LABS: ALT (SGPT) 16 U/L (8-55); AST (SGOT) 14 U/L (5-34); Albumin 3.1 g/dL (3.4-4.8); Alkaline Phosphatase 77 U/L (40-110); Anion Gap 12 mmol/L (10-20); BUN (Urea Nitrogen) 13 mg/dL (9.8-20.1); Bilirubin, Total 0.2 mg/dL (0.2-1.2); Calc. Creatinine Clearance 107 mL/min (70-130); Calcium 10.1 mg/dL (7.8-10.44); Carbon Dioxide 26 mmol/L (23-31); Chloride 105 mmol/L (98-107); Estimated GFR 78; Globulin 3.3 g/dL (2.4-3.5); Glucose 118 mg/dL (83-110); Potassium 3.6 mmol/L (3.5-5.1); Protein, Total 6.4 g/dL (5.8-8.1); Sodium 139 mmol/L (136-145)
[2023-07-22 08:17] VITALS: BMI 43.0
[2023-07-22] MEDS: dilTIAZem CD 300 MG CAP PO SCH (11:03)
[2023-07-22] MEDS: Gabapentin 300 MG CAP PO SCH ×2 (11:05→21:54)
[2023-07-22] MEDS: Aspirin Chewable 81 MG TAB PO SCH (11:05)
[2023-07-22] MEDS: Famotidine 20 MG TAB PO SCH ×2 (11:05→21:54)
[2023-07-22] MEDS: Lisinopril 20 MG TAB PO SCH (11:06)
[2023-07-22] MEDS: Amlodipine 5 MG TAB PO SCH (11:06)
[2023-07-22] MEDS: Apixaban 2.5 MG TAB PO SCH ×2 (11:07→21:56)
[2023-07-22] MEDS: cefTRIAXone\\ROCEPHIN 2 GM in Sodium Chloride 0.9% 100 ML IVPB SCH (13:08)
[2023-07-22] MEDS: Polyethylene Glycol 3350 17 GM Packet PO SCH (13:09)
[2023-07-22] MEDS ORDERED: hydrALAZINE 20 MG/ML VIAL SLOW IVP PRN (16:29)
[2023-07-23 04:58] LABS: #Eosinphils 0.3 thou/uL (0.0-0.7); #Monocytes 0.6 thou/uL (0.11-0.59); #Neutrophils 5.7 thou/uL (1.40-6.50); %Basophils 0.5 % (0.0-1.0); %Eosinophils 3.1 % (0.0-10.0); %Lymphocytes 20.9 % (21.0-51.0); %Monocytes 7.5 % (0.0-10.0); %Neutrophils 67.6 % (42.0-75.0); Hemoglobin 12.2 g/dL (12.0-16.0); Mean Corpuscular HGB CONC 33.9 g/dL (32.0-36.0); Mean Corpuscular Hemoglobin 31.7 pg (27.0-31.0); Mean Corpuscular Volume 93.5 fl (78.0-98.0); Mean Platelet Volume 10.7 fL (7.4-10.4); Platelet Count 262 10x3/uL (130-400); RBC Distribution Width 13.1 % (11.5-14.5); Red Blood Cell (RBC) Count 3.85 mill/uL (4.20-5.40); White Blood Cell (WBC) Count 8.4 10x3/uL (4.8-10.8)
[2023-07-23 05:34] LABS: ALT (SGPT) 14 U/L (8-55); AST (SGOT) 13 U/L (5-34); Albumin 3.4 g/dL (3.4-4.8); Alkaline Phosphatase 81 U/L (40-110); Anion Gap 12 mmol/L (10-20); BUN (Urea Nitrogen) 9 mg/dL (9.8-20.1); Bilirubin, Total 0.3 mg/dL (0.2-1.2); Calc. Creatinine Clearance 118 mL/min (70-130); Calcium 10.6 mg/dL (7.8-10.44); Carbon Dioxide 27 mmol/L (23-31); Chloride 105 mmol/L (98-107); Estimated GFR 86; Globulin 3.3 g/dL (2.4-3.5); Glucose 129 mg/dL (83-110); Potassium 3.5 mmol/L (3.5-5.1); Protein, Total 6.7 g/dL (5.8-8.1); Sodium 140 mmol/L (136-145)
[2023-07-23] MEDS: Lactated Ringer's 1,000 ML IV SCH (06:39)
[2023-07-23] MEDS ORDERED: Azithromycin 500 MG in Sodium Chloride 0.9% 250 ML 250 ML IVPB SCH (10:00)
[2023-07-23] MEDS: cefTRIAXone\\ROCEPHIN 2 GM in Sodium Chloride 0.9% 100 ML IVPB SCH (11:27)
[2023-07-23] MEDS: dilTIAZem CD 300 MG CAP PO SCH (11:28)
[2023-07-23] MEDS: Polyethylene Glycol 3350 17 GM Packet PO SCH (11:28)
[2023-07-23] MEDS: Lisinopril 20 MG TAB PO SCH (11:28)
[2023-07-23] MEDS: Amlodipine 5 MG TAB PO SCH (11:29)
[2023-07-23] MEDS: Aspirin Chewable 81 MG TAB PO SCH (11:29)
[2023-07-23] MEDS: Apixaban 2.5 MG TAB PO SCH (11:33)
[2023-07-23 11:42] VITALS: BP 168/88; TEMP 96.2
[2023-07-23] MEDS: Famotidine 20 MG TAB PO SCH (11:45)
[2023-07-23] MEDS: Gabapentin 300 MG CAP PO SCH (11:45)
== END 2023-07-23 15:45 | DRG 853 ==
LOC: ERS 15:23 → ERHOLD 17:42 → SURG A 20:47 → CCU 22:39 → 2NO 07-19 13:33
PROVIDERS: ADMIT Internal Medicine; ATTEND Internal Medicine
PROC: BT1D1ZZ Fluoroscopy of Right Kidney, Ureter and Bladder using Low Osmolar Contrast (ICD-10-PCS; principal; 2023-07-17)
PROC: 0T768DZ Dilation of Right Ureter with Intraluminal Device, Via Natural or Artificial Opening Endoscopic (ICD-10-PCS; 2023-07-17)
DX: A41.51 Sepsis due to Escherichia coli [E. coli] (principal); J18.9 Pneumonia, unspecified organism; N12 Tubulo-interstitial nephritis, not specified as acute or chronic; N20.1 Calculus of ureter; Z68.41 Body mass index [BMI] 40.0-44.9, adult; J98.11 Atelectasis; N13.30 Unspecified hydronephrosis; R11.2 Nausea with vomiting, unspecified; I10 Essential (primary) hypertension; N28.1 Cyst of kidney, acquired; I72.2 Aneurysm of renal artery; R33.9 Retention of urine, unspecified; E66.01 Morbid (severe) obesity due to excess calories; E83.52 Hypercalcemia; R60.0 Localized edema; M10.9 Gout, unspecified; R31.9 Hematuria, unspecified; R06.02 Shortness of breath; E78.5 Hyperlipidemia, unspecified; I48.0 Paroxysmal atrial fibrillation; Z79.01 Long term (current) use of anticoagulants; Z79.899 Other long term (current) drug therapy; Z90.710 Acquired absence of both cervix and uterus; Z86.73 Personal history of transient ischemic attack (TIA), and cerebral infarction without residual deficits; Z87.442 Personal history of urinary calculi; Z98.890 Other specified postprocedural states
CPT/HCPCS: 36415; 36416; 51701; 71045; 71046; 74176; 74420; 80048; 80053; 82306; 83605; 83690; 83970; 84145; 84484; 85025; 85027; 87040; 87077; 87086; 87149; 87186; 93005; 93306; 93970; 96361; 96365; 96366; 96375; 96376; 99292; C2617; J0360; J0456; J0696; J2060; J2270; J2405; J2543; J2704; J3010; J3490; J7050; J7120; Q0162; S0028

== ENCOUNTER 2023-08-05 19:14 | Inpatient (IN) | payer MEDICARE ==
[~2023-08-05 19:14] MED LIST: Iopamidol-370 76% 500 ML MDV (1 ML CHARGE) ONE
[2023-08-05 19:59] LABS: #Basophils 0.1 thou/uL (0.0-0.2); #Eosinphils 0.4 thou/uL (0.0-0.7); #Monocytes 0.6 thou/uL (0.11-0.59); #Neutrophils 4.5 thou/uL (1.40-6.50); %Basophils 0.9 % (0.0-1.0); %Eosinophils 4.5 % (0.0-10.0); %Lymphocytes 28.6 % (21.0-51.0); %Monocytes 7.8 % (0.0-10.0); %Neutrophils 57.9 % (42.0-75.0); Hematocrit 37.1 % (36.0-47.0); Hemoglobin 11.6 g/dL (12.0-16.0); Mean Corpuscular HGB CONC 31.3 g/dL (32.0-36.0); Mean Corpuscular Hemoglobin 30.5 pg (27.0-31.0); Mean Corpuscular Volume 97.6 fl (78.0-98.0); Mean Platelet Volume 11.2 fL (7.4-10.4); Platelet Count 236 10x3/uL (130-400); RBC Distribution Width 13.3 % (11.5-14.5); White Blood Cell (WBC) Count 7.8 10x3/uL (4.8-10.8)
[2023-08-05 20:18] LABS: Bacteria/HPF 1+ HPF (None Seen); Bilirubin Negative (Negative); Blood, Urine 3+ (Negative); CAUTI Indications for Culture Pelvic or flank pain; Clarity Turbid (Clear); Glucose, Urine (Dipstick) 30 mg/dL (Negative); Ketone, Urine Negative (Negative); Leukocyte 75 Leu/uL (Negative); Nitrite Negative (Negative); Protein, Urine (Dipstick) 50 mg/dL (Neg-Trace); RBC/HPF Greater than 50 HPF (0-3); Specific Gravity, Urine 1.015 (1.002-1.036); Squamous Epithelial 0-3 HPF (0-3); Urobilinogen Normal mg/dL (Less than 2); pH, Urine 5.5 (5.0-9.0)
[2023-08-05 20:20] LABS: Urine Culture Reflex Yes Yes
[2023-08-05 20:31] LABS: ALT (SGPT) 28 U/L (8-55); AST (SGOT) 28 U/L (5-34); Albumin 3.6 g/dL (3.4-4.8); Alkaline Phosphatase 94 U/L (40-110); Anion Gap 11 mmol/L (10-20); BUN (Urea Nitrogen) 19 mg/dL (9.8-20.1); Bilirubin, Total 0.3 mg/dL (0.2-1.2); Calc. Creatinine Clearance 0 mL/min (70-130); Calcium 10.7 mg/dL (7.8-10.44); Carbon Dioxide 24 mmol/L (23-31); Chloride 105 mmol/L (98-107); Estimated GFR 55; Globulin 3.5 g/dL (2.4-3.5); Glucose 134 mg/dL (83-110); Lipase 36 U/L (8-78); Potassium 4.3 mmol/L (3.5-5.1); Protein, Total 7.1 g/dL (5.8-8.1); Sodium 136 mmol/L (136-145)
[2023-08-05] MEDS ORDERED: Ondansetron PF 4 MG/2 ML Vial IVP PRN (23:15)
[2023-08-05] MEDS ORDERED: cefTRIAXone (ROCEPHIN) 1 GM VIAL ONE (23:23)
[2023-08-05] MEDS ORDERED: Sodium Chloride 0.9% 200 ML ONE (23:23)
[2023-08-05] MEDS ORDERED: Azithromycin 500 MG VIAL ONE (23:23)
[2023-08-05] MEDS ORDERED: Furosemide 20 MG/2 ML VIAL SLOW IVP SCH (23:30)
[2023-08-05] MEDS ORDERED: Polyethylene Glycol 3350 17 GM Packet PO SCH (23:45)
[2023-08-05] MEDS ORDERED: Cefepime 2 GM VIAL ONE (23:58)
[2023-08-06] MEDS ORDERED: cefTRIAXone\\ROCEPHIN 1 GM in Sodium Chloride 0.9% 100 ML IVPB SCH (00:15)
[2023-08-06] MEDS: Azithromycin 500 MG in Sodium Chloride 0.9% 250 ML 250 ML IVPB SCH (01:22)
[2023-08-06 04:21] VITALS: BMI 35.6
[2023-08-06 06:20] LABS: #Basophils 0.1 thou/uL (0.0-0.2); #Eosinphils 0.3 thou/uL (0.0-0.7); #Monocytes 0.8 thou/uL (0.11-0.59); %Basophils 0.7 % (0.0-1.0); %Monocytes 7.9 % (0.0-10.0); %Neutrophils 72.1 % (42.0-75.0); Hematocrit 36.7 % (36.0-47.0); Hemoglobin 11.5 g/dL (12.0-16.0); Mean Corpuscular HGB CONC 31.3 g/dL (32.0-36.0); Mean Corpuscular Hemoglobin 30.7 pg (27.0-31.0); Mean Corpuscular Volume 98.1 fl (78.0-98.0); Platelet Count 238 10x3/uL (130-400); RBC Distribution Width 13.4 % (11.5-14.5); Red Blood Cell (RBC) Count 3.74 mill/uL (4.20-5.40); White Blood Cell (WBC) Count 9.7 10x3/uL (4.8-10.8)
[2023-08-06 06:47] LABS: Anion Gap 10 mmol/L (10-20); BUN (Urea Nitrogen) 18 mg/dL (9.8-20.1); Calc. Creatinine Clearance 64 mL/min (70-130); Calcium 10.6 mg/dL (7.8-10.44); Carbon Dioxide 25 mmol/L (23-31); Chloride 105 mmol/L (98-107); Estimated GFR 54; Glucose 123 mg/dL (83-110); Magnesium 1.6 mg/dL (1.6-2.6); Potassium 4.1 mmol/L (3.5-5.1); Sodium 136 mmol/L (136-145)
[2023-08-06] MEDS: Lisinopril 20 MG TAB PO SCH (08:56)
[2023-08-06] MEDS: Polyethylene Glycol 3350 17 GM Packet PO SCH (08:57)
[2023-08-06] MEDS: Amlodipine 5 MG TAB PO SCH (08:58)
[2023-08-06] MEDS: Senokot S 8.6-50 MG TAB PO SCH ×2 (08:58→20:57)
[2023-08-06] MEDS: dilTIAZem CD 300 MG CAP PO SCH (09:11)
[2023-08-06] MEDS: cefTRIAXone\\ROCEPHIN 1 GM in Sodium Chloride 0.9% 100 ML IVPB SCH (11:55)
[2023-08-06] MEDS ORDERED: Promethazine HCl 25 MG/ML VIAL ONE (16:17)
[2023-08-06] MEDS ORDERED: Ondansetron PF 4 MG/2 ML Vial ONE ×3 (16:40→16:59)
[2023-08-06] MEDS ORDERED: fentaNYL 50 mcg/mL 1 mL Vial ONE ×2 (16:40→18:22)
[2023-08-06] MEDS ORDERED: Rocuronium Bromide 10 MG/ML (10ML VIAL) ONE ×2 (16:40→16:50)
[2023-08-06] MEDS ORDERED: PROPOFOL 20 ML ONE (16:40)
[2023-08-06] MEDS ORDERED: PHENYLEPHRINE-NS 100 MCG/ML 10 ML SYRINGE ONE ×2 (16:50→17:12)
[2023-08-06] MEDS ORDERED: PROPOFOL 200 MG/20 ML VIAL ONE (16:50)
[2023-08-06] MEDS ORDERED: Metoclopramide HCl 10 MG/2 ML VIAL ONE ×2 (16:50→16:59)
[2023-08-06] MEDS ORDERED: Ondansetron HCl/PF 4 MG/2 ML Vial IVP PRN (17:10)
[2023-08-06] MEDS ORDERED: Promethazine HCl 25 MG/ML VIAL IM PRN (17:10)
[2023-08-06] MEDS ORDERED: SUGAMMADEX SODIUM 200 MG/2 ML VIAL ONE (17:39)
[2023-08-07] MEDS: Azithromycin 500 MG in Sodium Chloride 0.9% 250 ML 250 ML IVPB SCH ×2 (00:09→23:46)
[2023-08-07 06:33] LABS: #Basophils 0.1 thou/uL (0.0-0.2); #Eosinphils 0.3 thou/uL (0.0-0.7); #Monocytes 0.7 thou/uL (0.11-0.59); #Neutrophils 5.4 thou/uL (1.40-6.50); %Basophils 0.8 % (0.0-1.0); %Lymphocytes 21.7 % (21.0-51.0); %Monocytes 8.1 % (0.0-10.0); Hematocrit 34.4 % (36.0-47.0); Hemoglobin 10.8 g/dL (12.0-16.0); Mean Corpuscular HGB CONC 31.4 g/dL (32.0-36.0); Mean Corpuscular Hemoglobin 30.7 pg (27.0-31.0); Mean Corpuscular Volume 97.7 fl (78.0-98.0); Platelet Count 206 10x3/uL (130-400); RBC Distribution Width 13.6 % (11.5-14.5); Red Blood Cell (RBC) Count 3.52 mill/uL (4.20-5.40); White Blood Cell (WBC) Count 8.3 10x3/uL (4.8-10.8)
[2023-08-07 06:58] LABS: Anion Gap 11 mmol/L (10-20); BUN (Urea Nitrogen) 16 mg/dL (9.8-20.1); Calc. Creatinine Clearance 70 mL/min (70-130); Carbon Dioxide 27 mmol/L (23-31); Chloride 105 mmol/L (98-107); Estimated GFR 59; Glucose 113 mg/dL (83-110); Potassium 4.6 mmol/L (3.5-5.1); Sodium 138 mmol/L (136-145)
[2023-08-07] MEDS: Amlodipine 5 MG TAB PO SCH (08:43)
[2023-08-07] MEDS: Polyethylene Glycol 3350 17 GM Packet PO SCH (08:43)
[2023-08-07] MEDS: Senokot S 8.6-50 MG TAB PO SCH ×2 (08:43→20:20)
[2023-08-07] MEDS: Lisinopril 20 MG TAB PO SCH (08:43)
[2023-08-07] MEDS: dilTIAZem CD 300 MG CAP PO SCH (08:44)
[2023-08-07] MEDS: cefTRIAXone\\ROCEPHIN 1 GM in Sodium Chloride 0.9% 100 ML IVPB SCH (12:20)
[2023-08-07] MEDS: Acetaminophen 325 MG TAB PO PRN (12:25)
[2023-08-08] MEDS: Senokot S 8.6-50 MG TAB PO SCH (08:52)
[2023-08-08] MEDS: Polyethylene Glycol 3350 17 GM Packet PO SCH (08:52)
[2023-08-08] MEDS: dilTIAZem CD 300 MG CAP PO SCH (08:52)
[2023-08-08] MEDS: Lisinopril 20 MG TAB PO SCH (08:52)
[2023-08-08] MEDS: Amlodipine 5 MG TAB PO SCH (08:52)
[2023-08-08] MEDS: cefTRIAXone\\ROCEPHIN 1 GM in Sodium Chloride 0.9% 100 ML IVPB SCH (11:56)
[2023-08-08] MEDS: Acetaminophen 325 MG TAB PO PRN (12:00)
[2023-08-08 12:25] LABS: #Basophils 0.1 thou/uL (0.0-0.2); #Eosinphils 0.4 thou/uL (0.0-0.7); #Monocytes 0.4 thou/uL (0.11-0.59); #Neutrophils 4.2 thou/uL (1.40-6.50); %Basophils 0.7 % (0.0-1.0); %Lymphocytes 31.1 % (21.0-51.0); %Monocytes 5.4 % (0.0-10.0); %Neutrophils 57.7 % (42.0-75.0); Hematocrit 34.1 % (36.0-47.0); Mean Corpuscular HGB CONC 32.3 g/dL (32.0-36.0); Mean Corpuscular Hemoglobin 31.2 pg (27.0-31.0); Mean Corpuscular Volume 96.6 fl (78.0-98.0); Mean Platelet Volume 11.8 fL (7.4-10.4); Platelet Count 199 10x3/uL (130-400); RBC Distribution Width 13.7 % (11.5-14.5); Red Blood Cell (RBC) Count 3.53 mill/uL (4.20-5.40); White Blood Cell (WBC) Count 7.3 10x3/uL (4.8-10.8)
[2023-08-08 12:29] VITALS: BP 157/78; TEMP 98
[2023-08-08 12:47] LABS: Anion Gap 10 mmol/L (10-20); BUN (Urea Nitrogen) 17 mg/dL (9.8-20.1); Calc. Creatinine Clearance 74 mL/min (70-130); Calcium 10.2 mg/dL (7.8-10.44); Carbon Dioxide 26 mmol/L (23-31); Chloride 107 mmol/L (98-107); Estimated GFR 63; Glucose 155 mg/dL (83-110); Potassium 4.2 mmol/L (3.5-5.1); Sodium 139 mmol/L (136-145)
== END 2023-08-08 16:12 | disposition home or self-care (01) | DRG 659 ==
LOC: ERS 19:14 → T4-B 23:18
PROVIDERS: ADMIT Internal Medicine; ATTEND Internal Medicine
PROC: 0T768DZ Dilation of Right Ureter with Intraluminal Device, Via Natural or Artificial Opening Endoscopic (ICD-10-PCS; principal; 2023-08-06)
PROC: 0TC08ZZ Extirpation of Matter from Right Kidney, Via Natural or Artificial Opening Endoscopic (ICD-10-PCS; 2023-08-06)
PROC: 0TC68ZZ Extirpation of Matter from Right Ureter, Via Natural or Artificial Opening Endoscopic (ICD-10-PCS; 2023-08-06)
DX: N20.2 Calculus of kidney with calculus of ureter (principal); J18.9 Pneumonia, unspecified organism; R31.9 Hematuria, unspecified; I48.91 Unspecified atrial fibrillation; E83.52 Hypercalcemia; D64.9 Anemia, unspecified; Z79.899 Other long term (current) drug therapy; Z79.82 Long term (current) use of aspirin; Z90.710 Acquired absence of both cervix and uterus; Z98.890 Other specified postprocedural states; Z82.49 Family history of ischemic heart disease and other diseases of the circulatory system; Z88.8 Allergy status to other drugs, medicaments and biological substances; M10.9 Gout, unspecified; I25.2 Old myocardial infarction; I11.0 Hypertensive heart disease with heart failure; I50.9 Heart failure, unspecified; Z11.52 Encounter for screening for COVID-19
CPT/HCPCS: 36415; 71045; 74177; 74420; 80048; 80053; 81001; 82274; 83690; 83735; 83880; 85025; 87086; 87635; 87804; 96365; C1713; C1747; C1769; C2617; J0456; J0692; J0696; J1940; J2405; J2704; J2765; J3010; J3490; J7050; Q9967

== ENCOUNTER 2023-08-15 20:50 | Inpatient (IN) | payer MEDICARE ==
[2023-08-15] MEDS ORDERED: Acetaminophen 650 MG Suppository ONE (21:10)
[2023-08-15] MEDS ORDERED: Furosemide 40 MG/4 ML VIAL ONE (21:10)
[2023-08-15 21:28] LABS: #Basophils 0.1 thou/uL (0.0-0.2); #Eosinphils 0.3 thou/uL (0.0-0.7); #Monocytes 0.7 thou/uL (0.11-0.59); #Neutrophils 18.1 thou/uL (1.40-6.50); %Basophils 0.3 % (0.0-1.0); %Eosinophils 1.6 % (0.0-10.0); %Lymphocytes 5.4 % (21.0-51.0); %Monocytes 3.6 % (0.0-10.0); %Neutrophils 88.8 % (42.0-75.0); Hematocrit 41.1 % (36.0-47.0); Hemoglobin 13.2 g/dL (12.0-16.0); Mean Corpuscular HGB CONC 32.1 g/dL (32.0-36.0); Mean Corpuscular Volume 96.5 fl (78.0-98.0); Mean Platelet Volume 11.6 fL (7.4-10.4); Platelet Count 272 10x3/uL (130-400); RBC Distribution Width 13.3 % (11.5-14.5); Red Blood Cell (RBC) Count 4.26 mill/uL (4.20-5.40); White Blood Cell (WBC) Count 20.4 10x3/uL (4.8-10.8)
[2023-08-15 21:52] LABS: ALT (SGPT) 25 U/L (8-55); AST (SGOT) 27 U/L (5-34); Albumin 3.8 g/dL (3.4-4.8); Alkaline Phosphatase 110 U/L (40-110); Anion Gap 16 mmol/L (10-20); BUN (Urea Nitrogen) 19 mg/dL (9.8-20.1); Bilirubin, Total 0.5 mg/dL (0.2-1.2); Calc. Creatinine Clearance 0 mL/min (70-130); Calcium 10.7 mg/dL (7.8-10.44); Carbon Dioxide 23 mmol/L (23-31); Chloride 104 mmol/L (98-107); Estimated GFR 52; Globulin 4.2 g/dL (2.4-3.5); Glucose 140 mg/dL (83-110); Potassium 4.2 mmol/L (3.5-5.1); Sodium 139 mmol/L (136-145)
[2023-08-15 21:56] LABS: Troponin I Less than 0.010 ng/mL (< 0.028)
[2023-08-15 22:42] LABS: Bacteria/HPF 1+ HPF (None Seen); Bilirubin Negative (Negative); Blood, Urine 3+ (Negative); CAUTI Indications for Culture Alt mental st,lethar; Clarity Turbid (Clear); Glucose, Urine (Dipstick) 50 mg/dL (Negative); Ketone, Urine Negative (Negative); Leukocyte 25 Leu/uL (Negative); Nitrite Negative (Negative); Protein, Urine (Dipstick) 30 mg/dL (Neg-Trace); RBC/HPF Greater than 50 HPF (0-3); Specific Gravity, Urine 1.014 (1.002-1.036); Squamous Epithelial None Seen HPF (0-3); Urobilinogen Normal mg/dL (Less than 2); WBC/HPF Greater than 50 HPF (0-3)
[2023-08-15 22:43] LABS: Urine Culture Reflex Yes Yes
[2023-08-15] MEDS ORDERED: Acetaminophen 325 MG TAB PO PRN (23:00)
[2023-08-15] MEDS ORDERED: Ondansetron ODT 4 MG TAB SL PRN (23:00)
[2023-08-15] MEDS ORDERED: Ondansetron PF 4 MG/2 ML Vial IVP PRN (23:00)
[2023-08-16] MEDS ORDERED: Senokot S 8.6-50 MG TAB PO PRN (00:03)
[2023-08-16] MEDS ORDERED: Cefepime 2 GM VIAL ONE (00:23)
[2023-08-16] MEDS ORDERED: Sodium Chloride 0.9% 100 ML ONE (00:23)
[2023-08-16 01:32] LABS: Troponin I Less than 0.010 ng/mL (< 0.028)
[2023-08-16 01:58] VITALS: BMI 39.8
[2023-08-16] MEDS: cefTRIAXone\\ROCEPHIN 1 GM in Sodium Chloride 0.9% 100 ML IVPB SCH (02:24)
[2023-08-16 04:26] LABS: #Basophils 0.1 thou/uL (0.0-0.2); #Eosinphils 0.1 thou/uL (0.0-0.7); #Monocytes 0.7 thou/uL (0.11-0.59); #Neutrophils 15.1 thou/uL (1.40-6.50); %Basophils 0.4 % (0.0-1.0); %Eosinophils 0.8 % (0.0-10.0); %Lymphocytes 5.4 % (21.0-51.0); %Neutrophils 88.9 % (42.0-75.0); Hematocrit 37.6 % (36.0-47.0); Hemoglobin 11.9 g/dL (12.0-16.0); Mean Corpuscular HGB CONC 31.6 g/dL (32.0-36.0); Mean Corpuscular Hemoglobin 30.6 pg (27.0-31.0); Mean Corpuscular Volume 96.7 fl (78.0-98.0); Mean Platelet Volume 11.9 fL (7.4-10.4); Platelet Count 243 10x3/uL (130-400); RBC Distribution Width 13.4 % (11.5-14.5); Red Blood Cell (RBC) Count 3.89 mill/uL (4.20-5.40); White Blood Cell (WBC) Count 16.9 10x3/uL (4.8-10.8)
[2023-08-16 04:52] LABS: Anion Gap 13 mmol/L (10-20); BUN (Urea Nitrogen) 19 mg/dL (9.8-20.1); Calc. Creatinine Clearance 74 mL/min (70-130); Calcium 10.2 mg/dL (7.8-10.44); Carbon Dioxide 24 mmol/L (23-31); Chloride 104 mmol/L (98-107); Estimated GFR 56; Glucose 132 mg/dL (83-110); Potassium 4.2 mmol/L (3.5-5.1); Sodium 137 mmol/L (136-145)
[2023-08-16 04:55] LABS: Troponin I Less than 0.010 ng/mL (< 0.028)
[2023-08-16] MEDS ORDERED: FLU VACC QS2023(65UP)/MF59C/PF 60 MCG/0.5 ML SYRINGE IM ONE (09:00)
[2023-08-16] MEDS: Famotidine 20 MG TAB PO SCH (09:42)
[2023-08-16] MEDS: Apixaban 2.5 MG TAB PO SCH ×2 (09:42→21:11)
[2023-08-16] MEDS: dilTIAZem CD 300 MG CAP PO SCH (09:42)
[2023-08-16] MEDS: Amlodipine 5 MG TAB PO SCH (09:42)
[2023-08-16] MEDS: Gabapentin 300 MG CAP PO SCH ×2 (09:42→21:10)
[2023-08-16] MEDS: Lisinopril 20 MG TAB PO SCH (09:43)
[2023-08-17] MEDS: cefTRIAXone\\ROCEPHIN 1 GM in Sodium Chloride 0.9% 100 ML IVPB SCH (01:51)
[2023-08-17] MEDS: dilTIAZem CD 300 MG CAP PO SCH (09:15)
[2023-08-17] MEDS: Gabapentin 300 MG CAP PO SCH ×2 (09:15→20:34)
[2023-08-17] MEDS: Apixaban 2.5 MG TAB PO SCH ×2 (09:16→20:34)
[2023-08-17] MEDS: Amlodipine 5 MG TAB PO SCH (09:16)
[2023-08-17] MEDS: Famotidine 20 MG TAB PO SCH (09:16)
[2023-08-17] MEDS: Lisinopril 20 MG TAB PO SCH (09:58)
[2023-08-17 17:10] LABS: #Eosinphils 0.5 thou/uL (0.0-0.7); #Monocytes 0.4 thou/uL (0.11-0.59); %Basophils 0.5 % (0.0-1.0); %Eosinophils 7.4 % (0.0-10.0); %Lymphocytes 25.6 % (21.0-51.0); %Monocytes 5.7 % (0.0-10.0); %Neutrophils 60.5 % (42.0-75.0); Hematocrit 35.5 % (36.0-47.0); Hemoglobin 11.2 g/dL (12.0-16.0); Mean Corpuscular HGB CONC 31.5 g/dL (32.0-36.0); Mean Corpuscular Volume 98.3 fl (78.0-98.0); Mean Platelet Volume 11.4 fL (7.4-10.4); Platelet Count 212 10x3/uL (130-400); RBC Distribution Width 13.4 % (11.5-14.5); Red Blood Cell (RBC) Count 3.61 mill/uL (4.20-5.40); White Blood Cell (WBC) Count 6.5 10x3/uL (4.8-10.8)
[2023-08-17 21:15] LABS: Anion Gap 16 mmol/L (10-20); BUN (Urea Nitrogen) 21 mg/dL (9.8-20.1); Calc. Creatinine Clearance 69 mL/min (70-130); Calcium 10.5 mg/dL (7.8-10.44); Carbon Dioxide 22 mmol/L (23-31); Chloride 106 mmol/L (98-107); Estimated GFR 51; Glucose 123 mg/dL (83-110); Magnesium 1.8 mg/dL (1.6-2.6); Potassium 4.2 mmol/L (3.5-5.1); Sodium 140 mmol/L (136-145)
[2023-08-18] MEDS: cefTRIAXone\\ROCEPHIN 1 GM in Sodium Chloride 0.9% 100 ML IVPB SCH (02:06)
[2023-08-18 04:56] LABS: #Eosinphils 0.5 thou/uL (0.0-0.7); #Monocytes 0.4 thou/uL (0.11-0.59); #Neutrophils 3.5 thou/uL (1.40-6.50); %Basophils 0.5 % (0.0-1.0); %Lymphocytes 31.7 % (21.0-51.0); %Monocytes 6.7 % (0.0-10.0); %Neutrophils 53.9 % (42.0-75.0); Hematocrit 34.2 % (36.0-47.0); Mean Corpuscular HGB CONC 32.2 g/dL (32.0-36.0); Mean Corpuscular Hemoglobin 31.4 pg (27.0-31.0); Mean Corpuscular Volume 97.7 fl (78.0-98.0); Mean Platelet Volume 11.8 fL (7.4-10.4); Platelet Count 204 10x3/uL (130-400); RBC Distribution Width 13.4 % (11.5-14.5); White Blood Cell (WBC) Count 6.4 10x3/uL (4.8-10.8)
[2023-08-18 05:19] LABS: Anion Gap 11 mmol/L (10-20); BUN (Urea Nitrogen) 20 mg/dL (9.8-20.1); Calc. Creatinine Clearance 87 mL/min (70-130); Calcium 10.1 mg/dL (7.8-10.44); Carbon Dioxide 26 mmol/L (23-31); Chloride 104 mmol/L (98-107); Estimated GFR 68; Glucose 100 mg/dL (83-110); Potassium 3.9 mmol/L (3.5-5.1); Sodium 137 mmol/L (136-145)
[2023-08-18] MEDS: Lisinopril 20 MG TAB PO SCH (09:43)
[2023-08-18] MEDS: Amlodipine 5 MG TAB PO SCH (09:43)
[2023-08-18] MEDS: dilTIAZem CD 300 MG CAP PO SCH (09:43)
[2023-08-18] MEDS: Gabapentin 300 MG CAP PO SCH ×2 (09:43→20:27)
[2023-08-18] MEDS: Famotidine 20 MG TAB PO SCH (09:44)
[2023-08-18] MEDS: Apixaban 2.5 MG TAB PO SCH ×2 (09:44→20:27)
[2023-08-18] MEDS ORDERED: Sterile Water 10 ML VIAL FS PRN (23:00)
[2023-08-18] MEDS ORDERED: Ziprasidone 20 MG VIAL IM SCH (23:00)
[2023-08-19] MEDS: cefTRIAXone\\ROCEPHIN 1 GM in Sodium Chloride 0.9% 100 ML IVPB SCH ×2 (01:23→01:40)
[2023-08-19 05:01] LABS: #Basophils 0.1 thou/uL (0.0-0.2); #Eosinphils 0.3 thou/uL (0.0-0.7); #Monocytes 0.4 thou/uL (0.11-0.59); #Neutrophils 3.9 thou/uL (1.40-6.50); %Basophils 0.9 % (0.0-1.0); %Eosinophils 4.9 % (0.0-10.0); %Lymphocytes 31.6 % (21.0-51.0); %Monocytes 6.4 % (0.0-10.0); %Neutrophils 55.9 % (42.0-75.0); Hematocrit 38.6 % (36.0-47.0); Hemoglobin 12.3 g/dL (12.0-16.0); Mean Corpuscular HGB CONC 31.9 g/dL (32.0-36.0); Mean Corpuscular Hemoglobin 30.7 pg (27.0-31.0); Mean Corpuscular Volume 96.3 fl (78.0-98.0); Mean Platelet Volume 11.6 fL (7.4-10.4); Platelet Count 227 10x3/uL (130-400); RBC Distribution Width 13.2 % (11.5-14.5); Red Blood Cell (RBC) Count 4.01 mill/uL (4.20-5.40); White Blood Cell (WBC) Count 6.9 10x3/uL (4.8-10.8)
[2023-08-19 05:25] LABS: Anion Gap 12 mmol/L (10-20); BUN (Urea Nitrogen) 15 mg/dL (9.8-20.1); Calc. Creatinine Clearance 93 mL/min (70-130); Calcium 10.4 mg/dL (7.8-10.44); Carbon Dioxide 25 mmol/L (23-31); Chloride 106 mmol/L (98-107); Estimated GFR 74; Glucose 111 mg/dL (83-110); Potassium 3.6 mmol/L (3.5-5.1); Sodium 139 mmol/L (136-145)
[2023-08-19] MEDS: Lisinopril 20 MG TAB PO SCH (09:33)
[2023-08-19] MEDS: Famotidine 20 MG TAB PO SCH ×2 (09:33→19:53)
[2023-08-19] MEDS: Gabapentin 300 MG CAP PO SCH ×2 (09:33→19:54)
[2023-08-19] MEDS: Apixaban 2.5 MG TAB PO SCH ×2 (09:33→19:53)
[2023-08-19] MEDS: dilTIAZem CD 300 MG CAP PO SCH (09:33)
[2023-08-19] MEDS: Amlodipine 5 MG TAB PO SCH (09:33)
[2023-08-20] MEDS: cefTRIAXone\\ROCEPHIN 1 GM in Sodium Chloride 0.9% 100 ML IVPB SCH (01:40)
[2023-08-20] MEDS ORDERED: Acetaminophen 325 MG TAB PO PRN (10:49)
[2023-08-20] MEDS: Amlodipine 5 MG TAB PO SCH (10:57)
[2023-08-20] MEDS: dilTIAZem CD 300 MG CAP PO SCH (10:58)
[2023-08-20] MEDS: Gabapentin 300 MG CAP PO SCH ×2 (10:58→23:39)
[2023-08-20] MEDS: Apixaban 2.5 MG TAB PO SCH ×2 (10:58→23:39)
[2023-08-20] MEDS: Famotidine 20 MG TAB PO SCH ×2 (10:58→23:39)
[2023-08-20] MEDS: Lisinopril 20 MG TAB PO SCH (10:59)
[2023-08-20] MEDS: Acetaminophen 325 MG TAB PO SCH ×2 (11:13→11:16)
[2023-08-21] MEDS ORDERED: Ondansetron PF 4 MG/2 ML Vial IVP PRN (09:48)
[2023-08-21] MEDS ORDERED: Ondansetron PF 4 MG/2 ML Vial IVP SCH (10:00)
[2023-08-21] MEDS: Amlodipine 5 MG TAB PO SCH (11:36)
[2023-08-21] MEDS: Gabapentin 300 MG CAP PO SCH ×2 (11:36→21:01)
[2023-08-21] MEDS: Apixaban 2.5 MG TAB PO SCH ×2 (11:36→21:01)
[2023-08-21] MEDS: Lisinopril 20 MG TAB PO SCH (11:38)
[2023-08-21] MEDS: Famotidine 20 MG TAB PO SCH ×2 (11:38→21:02)
[2023-08-21] MEDS: dilTIAZem CD 300 MG CAP PO SCH (11:39)
[2023-08-21] MEDS: cefTRIAXone\\ROCEPHIN 1 GM in Sodium Chloride 0.9% 100 ML IVPB SCH (19:43)
[2023-08-22] MEDS: cefTRIAXone\\ROCEPHIN 1 GM in Sodium Chloride 0.9% 100 ML IVPB SCH (01:12)
[2023-08-22 04:13] VITALS: TEMP 97.6
[2023-08-22 09:24] VITALS: BP 119/58
[2023-08-22] MEDS: Amlodipine 5 MG TAB PO SCH (09:43)
[2023-08-22] MEDS: Gabapentin 300 MG CAP PO SCH (09:44)
[2023-08-22] MEDS: Famotidine 20 MG TAB PO SCH (09:44)
[2023-08-22] MEDS: Apixaban 2.5 MG TAB PO SCH (09:44)
[2023-08-22] MEDS: dilTIAZem CD 300 MG CAP PO SCH (09:44)
[2023-08-22] MEDS: Lisinopril 20 MG TAB PO SCH (09:45)
== END 2023-08-22 12:25 | disposition home health service (06) | DRG 689 ==
LOC: ERS 20:50 → 2NO 22:48 → OBSVTOIN 08-16 11:41 → MSONC 08-19 21:50
PROVIDERS: ADMIT Student in an Organized Health Care Education/Training Program; ATTEND Family Medicine
DX: N39.0 Urinary tract infection, site not specified (principal); G93.41 Metabolic encephalopathy; I48.11 Longstanding persistent atrial fibrillation; I48.20 Chronic atrial fibrillation, unspecified; E66.01 Morbid (severe) obesity due to excess calories; I48.91 Unspecified atrial fibrillation; I10 Essential (primary) hypertension; M10.9 Gout, unspecified; E83.52 Hypercalcemia; F02.80 Dementia in other diseases classified elsewhere, unspecified severity, without behavioral disturbance, psychotic disturbance, mood disturbance, and anxiety; G30.9 Alzheimer's disease, unspecified; E78.5 Hyperlipidemia, unspecified; N20.0 Calculus of kidney; R53.81 Other malaise; Z90.710 Acquired absence of both cervix and uterus; Z68.37 Body mass index [BMI] 37.0-37.9, adult; Z98.890 Other specified postprocedural states; Z88.8 Allergy status to other drugs, medicaments and biological substances; Z88.1 Allergy status to other antibiotic agents; Z79.899 Other long term (current) drug therapy; Z90.5 Acquired absence of kidney
CPT/HCPCS: 36415; 36416; 71045; 74176; 80048; 80053; 81001; 83605; 83735; 83880; 84484; 85025; 87040; 87086; 87149; 93005; 96365; 96375; G0378; J0692; J0696; J1940; J2405; J3486; J3490

== ENCOUNTER 2023-08-25 14:02 | Inpatient (IN) | payer MEDICARE ==
[2023-08-25 14:58] LABS: #Basophils 0.1 thou/uL (0.0-0.2); #Eosinphils 0.2 thou/uL (0.0-0.7); #Monocytes 0.5 thou/uL (0.11-0.59); #Neutrophils 5.6 thou/uL (1.40-6.50); %Basophils 0.8 % (0.0-1.0); %Lymphocytes 19.2 % (21.0-51.0); %Neutrophils 70.9 % (42.0-75.0); Hematocrit 37.9 % (36.0-47.0); Mean Corpuscular HGB CONC 31.7 g/dL (32.0-36.0); Mean Corpuscular Hemoglobin 30.9 pg (27.0-31.0); Mean Corpuscular Volume 97.7 fl (78.0-98.0); Mean Platelet Volume 11.9 fL (7.4-10.4); Platelet Count 221 10x3/uL (130-400); RBC Distribution Width 13.4 % (11.5-14.5); Red Blood Cell (RBC) Count 3.88 mill/uL (4.20-5.40); White Blood Cell (WBC) Count 7.9 10x3/uL (4.8-10.8)
[2023-08-25 15:19] LABS: Troponin I Less than 0.010 ng/mL (< 0.028)
[2023-08-25 15:20] LABS: ALT (SGPT) 20 U/L (8-55); AST (SGOT) 20 U/L (5-34); Albumin 3.7 g/dL (3.4-4.8); Alkaline Phosphatase 95 U/L (40-110); BUN (Urea Nitrogen) 53 mg/dL (9.8-20.1); Bilirubin, Total 0.2 mg/dL (0.2-1.2); Calc. Creatinine Clearance 0 mL/min (70-130); Calcium 10.1 mg/dL (7.8-10.44); Carbon Dioxide 20 mmol/L (23-31); Chloride 107 mmol/L (98-107); Estimated GFR 25; Globulin 3.5 g/dL (2.4-3.5); Glucose 140 mg/dL (83-110); Lipase 64 U/L (8-78); Potassium 4.2 mmol/L (3.5-5.1); Protein, Total 7.2 g/dL (5.8-8.1); Sodium 139 mmol/L (136-145)
[2023-08-25 15:42] LABS: Anion Gap 16 mmol/L (10-20)
[2023-08-25 17:59] LABS: Bacteria/HPF None Seen HPF (None Seen); Bilirubin Negative (Negative); Blood, Urine Negative (Negative); CAUTI Indications for Culture Alt mental st,lethar; Clarity Clear (Clear); Glucose, Urine (Dipstick) Normal (Negative); Ketone, Urine Negative (Negative); Leukocyte 75 Leu/uL (Negative); Nitrite Negative (Negative); Protein, Urine (Dipstick) Negative (Neg-Trace); RBC/HPF 0-3 HPF (0-3); Specific Gravity, Urine 1.024 (1.002-1.036); Squamous Epithelial 0-3 HPF (0-3); Urobilinogen Normal mg/dL (Less than 2); WBC/HPF 0-3 HPF (0-3)
[2023-08-25 18:02] LABS: Urine Culture Reflex No No
[2023-08-25] MEDS ORDERED: Acetaminophen 325 MG TAB PO PRN (19:29)
[2023-08-25] MEDS ORDERED: Sodium Chloride 0.9% 1,000 ML IV SCH (19:30)
[2023-08-25] MEDS ORDERED: Ondansetron ODT 4 MG TAB PO PRN (19:36)
[2023-08-25] MEDS ORDERED: Ondansetron PF 4 MG/2 ML Vial IVP PRN (19:36)
[2023-08-25] MEDS: Sodium Chloride 0.9% 1,000 ML IV SCH (19:50)
[2023-08-25 19:51] LABS: Magnesium 1.9 mg/dL (1.6-2.6)
[2023-08-25] MEDS ORDERED: Senokot S 8.6-50 MG TAB PO PRN (21:36)
[2023-08-25] MEDS ORDERED: Metoprolol Tartrate 5 MG/5 ML VIAL IVP SCH (21:45)
[2023-08-25] MEDS: Pantoprazole 40 MG VIAL IVP SCH (22:28)
[2023-08-25 23:30] VITALS: BMI 39.6
[2023-08-26 05:50] LABS: #Eosinphils 0.2 thou/uL (0.0-0.7); #Monocytes 0.4 thou/uL (0.11-0.59); #Neutrophils 7.5 thou/uL (1.40-6.50); %Basophils 0.2 % (0.0-1.0); %Eosinophils 2.1 % (0.0-10.0); %Lymphocytes 5.2 % (21.0-51.0); %Monocytes 4.7 % (0.0-10.0); %Neutrophils 87.6 % (42.0-75.0); Hematocrit 34.9 % (36.0-47.0); Hemoglobin 11.3 g/dL (12.0-16.0); Mean Corpuscular HGB CONC 32.4 g/dL (32.0-36.0); Mean Corpuscular Hemoglobin 30.8 pg (27.0-31.0); Mean Corpuscular Volume 95.1 fl (78.0-98.0); Mean Platelet Volume 12.2 fL (7.4-10.4); Platelet Count 187 10x3/uL (130-400); RBC Distribution Width 13.3 % (11.5-14.5); Red Blood Cell (RBC) Count 3.67 mill/uL (4.20-5.40); White Blood Cell (WBC) Count 8.5 10x3/uL (4.8-10.8)
[2023-08-26 06:28] LABS: Anion Gap 13 mmol/L (10-20); BUN (Urea Nitrogen) 39 mg/dL (9.8-20.1); Calc. Creatinine Clearance 57 mL/min (70-130); Calcium 10.2 mg/dL (7.8-10.44); Carbon Dioxide 19 mmol/L (23-31); Chloride 110 mmol/L (98-107); Estimated GFR 41; Glucose 143 mg/dL (83-110); Potassium 3.9 mmol/L (3.5-5.1); Sodium 138 mmol/L (136-145)
[2023-08-26] MEDS: Apixaban 2.5 MG TAB PO SCH ×2 (09:16→20:24)
[2023-08-26] MEDS: Sodium Chloride 0.9% 1,000 ML IV SCH ×3 (09:16→23:00)
[2023-08-26] MEDS: Amlodipine 5 MG TAB PO SCH (09:16)
[2023-08-26] MEDS: Aspirin Chewable 81 MG TAB PO SCH (09:16)
[2023-08-26] MEDS: Pantoprazole 40 MG VIAL IVP SCH ×2 (09:16→20:24)
[2023-08-26] MEDS: dilTIAZem CD 300 MG CAP PO SCH (09:16)
[2023-08-26] MEDS: Famotidine 20 MG TAB PO SCH (09:16)
[2023-08-26] MEDS ORDERED: Sodium Chloride 0.9% 1,000 ML IV SCH (09:34)
[2023-08-26] MEDS ORDERED: Polyethylene Glycol 3350 17 GM Packet PO SCH (10:45)
[2023-08-26] MEDS ORDERED: Cefdinir 300 MG CAP PO SCH (10:45)
[2023-08-26 14:51] LABS: Actual Bicarbonate (HCO3a) 20.1 mEq/L (22-28); CO2 Tension 33.3 mmHg (35.0-45.0); Calcium, Ionized (arterial) 1.31 mmol/L (1.12-1.30); Carboxyhemoglobin (COHb) 0.6 gm% (0.0-3.0); Hematocrit-ABG 33 % (36.0-47.0); Hemoglobin (Hb) 11.1 g/dL (12.0-16.0); O2 Tension (PaO2), arterial 81.7 mmHg (> 60.0); Potassium - ABG Lab 3.85 mmol/L (3.70-5.30); pH, Arterial 7.399 (7.35-7.45)
[2023-08-26 14:55] LABS: Puncture Site RRA
[2023-08-26] MEDS: Cefdinir 300 MG CAP PO SCH (20:24)
[2023-08-27 05:47] LABS: #Eosinphils 0.4 thou/uL (0.0-0.7); #Monocytes 0.5 thou/uL (0.11-0.59); #Neutrophils 2.9 thou/uL (1.40-6.50); %Basophils 0.6 % (0.0-1.0); %Eosinophils 8.3 % (0.0-10.0); %Lymphocytes 27.1 % (21.0-51.0); %Monocytes 8.9 % (0.0-10.0); %Neutrophils 54.7 % (42.0-75.0); Hematocrit 32.8 % (36.0-47.0); Hemoglobin 10.4 g/dL (12.0-16.0); Mean Corpuscular HGB CONC 31.7 g/dL (32.0-36.0); Mean Corpuscular Volume 97.9 fl (78.0-98.0); Platelet Count 184 10x3/uL (130-400); RBC Distribution Width 13.8 % (11.5-14.5); Red Blood Cell (RBC) Count 3.35 mill/uL (4.20-5.40); White Blood Cell (WBC) Count 5.3 10x3/uL (4.8-10.8)
[2023-08-27 06:17] LABS: Anion Gap 12 mmol/L (10-20); BUN (Urea Nitrogen) 28 mg/dL (9.8-20.1); Calc. Creatinine Clearance 70 mL/min (70-130); Carbon Dioxide 22 mmol/L (23-31); Chloride 112 mmol/L (98-107); Estimated GFR 52; Glucose 104 mg/dL (83-110); Sodium 142 mmol/L (136-145)
[2023-08-27] MEDS: dilTIAZem CD 300 MG CAP PO SCH (09:44)
[2023-08-27] MEDS: Apixaban 2.5 MG TAB PO SCH ×2 (09:44→20:05)
[2023-08-27] MEDS: Amlodipine 5 MG TAB PO SCH (09:44)
[2023-08-27] MEDS: Aspirin Chewable 81 MG TAB PO SCH (09:44)
[2023-08-27] MEDS: Famotidine 20 MG TAB PO SCH (09:44)
[2023-08-27] MEDS: Cefdinir 300 MG CAP PO SCH ×2 (09:44→20:05)
[2023-08-27] MEDS: Pantoprazole 40 MG VIAL IVP SCH ×2 (09:44→20:05)
[2023-08-27] MEDS: Polyethylene Glycol 3350 17 GM Packet PO SCH (09:47)
[2023-08-27] MEDS ORDERED: ALPRAZolam 0.25 MG TAB PO SCH (17:30)
[2023-08-28 04:30] LABS: #Eosinphils 0.4 thou/uL (0.0-0.7); #Monocytes 0.4 thou/uL (0.11-0.59); #Neutrophils 3.1 thou/uL (1.40-6.50); %Basophils 0.6 % (0.0-1.0); %Eosinophils 7.2 % (0.0-10.0); %Lymphocytes 24.9 % (21.0-51.0); %Monocytes 8.3 % (0.0-10.0); %Neutrophils 58.8 % (42.0-75.0); Hematocrit 34.7 % (36.0-47.0); Hemoglobin 10.9 g/dL (12.0-16.0); Mean Corpuscular HGB CONC 31.4 g/dL (32.0-36.0); Mean Corpuscular Hemoglobin 30.4 pg (27.0-31.0); Mean Corpuscular Volume 96.9 fl (78.0-98.0); Platelet Count 181 10x3/uL (130-400); RBC Distribution Width 13.7 % (11.5-14.5); Red Blood Cell (RBC) Count 3.58 mill/uL (4.20-5.40); White Blood Cell (WBC) Count 5.3 10x3/uL (4.8-10.8)
[2023-08-28 04:58] LABS: Anion Gap 11 mmol/L (10-20); BUN (Urea Nitrogen) 19 mg/dL (9.8-20.1); Calc. Creatinine Clearance 81 mL/min (70-130); Calcium 10.3 mg/dL (7.8-10.44); Carbon Dioxide 22 mmol/L (23-31); Chloride 111 mmol/L (98-107); Estimated GFR 62; Glucose 97 mg/dL (83-110); Potassium 3.9 mmol/L (3.5-5.1); Sodium 140 mmol/L (136-145)
[2023-08-28] MEDS: Amlodipine 5 MG TAB PO SCH (10:18)
[2023-08-28] MEDS: Polyethylene Glycol 3350 17 GM Packet PO SCH (10:18)
[2023-08-28] MEDS: dilTIAZem CD 300 MG CAP PO SCH (10:18)
[2023-08-28] MEDS: Pantoprazole 40 MG VIAL IVP SCH (10:19)
[2023-08-28] MEDS: Famotidine 20 MG TAB PO SCH (10:19)
[2023-08-28] MEDS: Aspirin Chewable 81 MG TAB PO SCH (10:19)
[2023-08-28] MEDS: Apixaban 2.5 MG TAB PO SCH (10:19)
[2023-08-28] MEDS: Cefdinir 300 MG CAP PO SCH (10:19)
[2023-08-28 12:04] VITALS: TEMP 97.9
[2023-08-28 12:23] VITALS: BP 137/65
== END 2023-08-28 15:40 | disposition home or self-care (01) | DRG 683 ==
LOC: ERS 14:02 → T4-B 19:03 → 2NO 21:21 → OBSVTOIN 08-26 09:57
PROVIDERS: ADMIT Hospitalist; ATTEND Internal Medicine
PROC: 0T9B70Z Drainage of Bladder with Drainage Device, Via Natural or Artificial Opening (ICD-10-PCS; principal; 2023-08-26)
PROC: 4A033R1 Measurement of Arterial Saturation, Peripheral, Percutaneous Approach (ICD-10-PCS; 2023-08-26)
DX: N17.9 Acute kidney failure, unspecified (principal); K92.1 Melena; N39.0 Urinary tract infection, site not specified; I48.91 Unspecified atrial fibrillation; Z79.899 Other long term (current) drug therapy; Z88.8 Allergy status to other drugs, medicaments and biological substances; Z88.1 Allergy status to other antibiotic agents; Z88.5 Allergy status to narcotic agent; Z79.82 Long term (current) use of aspirin; Z79.01 Long term (current) use of anticoagulants; Z90.710 Acquired absence of both cervix and uterus; Z98.890 Other specified postprocedural states; Z82.49 Family history of ischemic heart disease and other diseases of the circulatory system; I12.9 Hypertensive chronic kidney disease with stage 1 through stage 4 chronic kidney disease, or unspecified chronic kidney disease; F03.90 Unspecified dementia, unspecified severity, without behavioral disturbance, psychotic disturbance, mood disturbance, and anxiety; K59.00 Constipation, unspecified; M10.9 Gout, unspecified; N18.2 Chronic kidney disease, stage 2 (mild)
CPT/HCPCS: 36415; 36600; 51701; 71045; 74177; 80048; 80053; 81001; 82805; 83605; 83690; 83735; 83880; 84484; 85025; 86850; 86900; 86901; 93005; 96360; 96361; 96374; 96375; 96376; C9113; G0378; J7050; Q9967

== ENCOUNTER 2023-08-31 06:44 | Emergency (ER) | payer MEDICARE ==
[2023-08-31 07:53] LABS: Bacteria/HPF 1+ HPF (None Seen); Bilirubin Negative (Negative); Blood, Urine Trace (Negative); CAUTI Indications for Culture Dysuria,urgency,freq; Clarity Turbid (Clear); Glucose, Urine (Dipstick) 50 mg/dL (Negative); Ketone, Urine 10 mg/dL (Negative); Leukocyte Negative Leu/uL (Negative); Nitrite Negative (Negative); Protein, Urine (Dipstick) 50 mg/dL (Neg-Trace); RBC/HPF 0-3 HPF (0-3); Specific Gravity, Urine 1.013 (1.002-1.036); Squamous Epithelial 0-3 HPF (0-3); Urobilinogen Normal mg/dL (Less than 2); WBC/HPF 0-3 HPF (0-3); pH, Urine 5.5 (5.0-9.0)
[2023-08-31 07:54] LABS: Urine Culture Reflex No No
[2023-08-31 08:04] LABS: #Basophils 0.1 thou/uL (0.0-0.2); #Eosinphils 0.2 thou/uL (0.0-0.7); #Monocytes 0.3 thou/uL (0.11-0.59); #Neutrophils 3.1 thou/uL (1.40-6.50); %Basophils 0.9 % (0.0-1.0); %Eosinophils 3.4 % (0.0-10.0); %Lymphocytes 30.9 % (21.0-51.0); %Monocytes 6.1 % (0.0-10.0); %Neutrophils 58.5 % (42.0-75.0); Hemoglobin 12.1 g/dL (12.0-16.0); Mean Corpuscular HGB CONC 32.7 g/dL (32.0-36.0); Mean Corpuscular Hemoglobin 30.9 pg (27.0-31.0); Mean Corpuscular Volume 94.4 fl (78.0-98.0); Mean Platelet Volume 11.7 fL (7.4-10.4); Platelet Count 191 10x3/uL (130-400); RBC Distribution Width 13.4 % (11.5-14.5); Red Blood Cell (RBC) Count 3.92 mill/uL (4.20-5.40); White Blood Cell (WBC) Count 5.3 10x3/uL (4.8-10.8)
[2023-08-31 08:27] LABS: ALT (SGPT) 15 U/L (8-55); AST (SGOT) 19 U/L (5-34); Albumin 3.5 g/dL (3.4-4.8); Alkaline Phosphatase 85 U/L (40-110); Anion Gap 14 mmol/L (10-20); BUN (Urea Nitrogen) 15 mg/dL (9.8-20.1); Bilirubin, Total 0.6 mg/dL (0.2-1.2); Calc. Creatinine Clearance 0 mL/min (70-130); Calcium 10.5 mg/dL (7.8-10.44); Carbon Dioxide 24 mmol/L (23-31); Chloride 106 mmol/L (98-107); Estimated GFR 57; Globulin 3.9 g/dL (2.4-3.5); Glucose 102 mg/dL (83-110); Potassium 3.9 mmol/L (3.5-5.1); Protein, Total 7.4 g/dL (5.8-8.1); Sodium 140 mmol/L (136-145)
[2023-08-31 08:36] LABS: Troponin I Less than 0.010 ng/mL (< 0.028)
[2023-08-31] MEDS ORDERED: Metoprolol Tartrate 5 MG/5 ML VIAL ONE (09:55)
[2023-08-31] MEDS ORDERED: Iopamidol-370 76% 500 ML MDV (1 ML CHARGE) ONE (13:59)
[2023-08-31] MEDS ORDERED: Acetaminophen 325 MG TAB PO PRN (14:11)
[2023-08-31] MEDS ORDERED: Senokot S 8.6-50 MG TAB PO PRN (14:14)
[2023-08-31] MEDS ORDERED: Gabapentin 300 MG CAP PO SCH (21:00)
[2023-08-31] MEDS ORDERED: Famotidine 20 MG TAB PO SCH (21:00)
[2023-09-01] MEDS ORDERED: Amlodipine 5 MG TAB PO SCH (09:00)
[2023-09-01] MEDS ORDERED: Lisinopril 20 MG TAB PO SCH (09:00)
[2023-09-01] MEDS ORDERED: dilTIAZem CD 300 MG CAP PO SCH (09:00)
[2023-09-01] MEDS ORDERED: Aspirin Chewable 81 MG TAB PO SCH (09:00)
== END 2023-08-31 16:43 | disposition left against medical advice (07) ==
LOC: ERS 06:44 → SUATTDRO 06:44 → UNDOADMIN 13:24 → 2NO 13:24 → ERS 16:43
PROVIDERS: ATTEND Internal Medicine
DX: R62.7 Adult failure to thrive (principal); I48.91 Unspecified atrial fibrillation; I10 Essential (primary) hypertension; I25.2 Old myocardial infarction; Z86.73 Personal history of transient ischemic attack (TIA), and cerebral infarction without residual deficits; Z79.82 Long term (current) use of aspirin; Z79.01 Long term (current) use of anticoagulants; Z79.899 Other long term (current) drug therapy
CPT/HCPCS: 51701; 71045; 74177; 80053; 81001; 82274; 84484; 85025; 86850; 86900; 86901; 93005; 94760; 96372; 96374; J1650; Q9967

== ENCOUNTER 2023-11-06 14:04 | Emergency (ER) | payer MEDICARE ==
[2023-11-06 14:59] LABS: #Eosinphils 0.2 thou/uL (0.0-0.7); #Monocytes 0.5 thou/uL (0.11-0.59); %Basophils 0.5 % (0.0-1.0); %Lymphocytes 23.6 % (21.0-51.0); %Monocytes 6.9 % (0.0-10.0); %Neutrophils 65.6 % (42.0-75.0); Hematocrit 38.2 % (36.0-47.0); Hemoglobin 12.5 g/dL (12.0-16.0); Mean Corpuscular HGB CONC 32.7 g/dL (32.0-36.0); Mean Corpuscular Hemoglobin 30.9 pg (27.0-31.0); Mean Corpuscular Volume 94.3 fl (78.0-98.0); Mean Platelet Volume 11.1 fL (7.4-10.4); Platelet Count 191 10x3/uL (130-400); RBC Distribution Width 13.3 % (11.5-14.5); Red Blood Cell (RBC) Count 4.05 mill/uL (4.20-5.40); White Blood Cell (WBC) Count 7.6 10x3/uL (4.8-10.8)
[2023-11-06 15:10] LABS: ALT (SGPT) 14 U/L (8-55); AST (SGOT) 16 U/L (5-34); Albumin 3.5 g/dL (3.4-4.8); Alkaline Phosphatase 116 U/L (40-110); Anion Gap 14 mmol/L (10-20); BUN (Urea Nitrogen) 18 mg/dL (9.8-20.1); Bilirubin, Total 0.2 mg/dL (0.2-1.2); Calc. Creatinine Clearance 0 mL/min (70-130); Calcium 10.3 mg/dL (7.8-10.44); Carbon Dioxide 24 mmol/L (23-31); Chloride 106 mmol/L (98-107); Estimated GFR 64; Globulin 3.9 g/dL (2.4-3.5); Glucose 135 mg/dL (83-110); Lipase 43 U/L (8-78); Potassium 3.8 mmol/L (3.5-5.1); Protein, Total 7.4 g/dL (5.8-8.1); Sodium 140 mmol/L (136-145)
[2023-11-06 15:13] LABS: Troponin I Less than 0.010 ng/mL (< 0.028)
== END 2023-11-06 15:50 | disposition home or self-care (01) ==
LOC: ERS 14:04
DX: I48.20 Chronic atrial fibrillation, unspecified (principal); I10 Essential (primary) hypertension; I25.2 Old myocardial infarction; M10.9 Gout, unspecified; N20.0 Calculus of kidney; H40.9 Unspecified glaucoma; Z55.6 Problems related to health literacy; Z86.73 Personal history of transient ischemic attack (TIA), and cerebral infarction without residual deficits
CPT/HCPCS: 36415; 71045; 80053; 83690; 84484; 85025; 93005

== ENCOUNTER 2024-12-30 07:16 | Inpatient (IN) | payer MEDICARE ==
[2024-12-30 08:17] LABS: #Basophils 0.05 10x3/uL (0.0-0.2); %Basophils 0.5 % (0.0-1.0); %Eosinophils 1.6 % (0.0-10.0); %Monocytes 7.3 % (0.0-10.0); %Neutrophils 72.2 % (42.0-75.0); Hematocrit 40.2 % (36.0-47.0); Hemoglobin 13.6 g/dL (12.0-16.0); Mean Corpuscular HGB CONC 33.8 g/dL (32.0-36.0); Mean Corpuscular Hemoglobin 31.6 pg (27.0-31.0); Mean Corpuscular Volume 93.3 fL (78.0-98.0); Mean Platelet Volume 11.6 fL (7.4-10.4); Platelet Count 150 10x3/uL (130-400); RBC Distribution Width 12.9 % (11.5-14.5); Red Blood Cell (RBC) Count 4.31 mill/uL (4.20-5.40)
[2024-12-30 08:21] LABS: INR-International Normal Ratio 1.1; Prothrombin Time 14.7 sec (12.0-14.7)
[2024-12-30 08:22] LABS: PTT 30.6 sec (22.9-36.1)
[2024-12-30 08:26] LABS: ALT (SGPT) 19 U/L (Less than 34); AST (SGOT) 27 U/L (11-34); Albumin 3.4 g/dL (3.1-4.5); Alkaline Phosphatase 92 U/L (40-110); Anion Gap 13 mmol/L (10-20); BUN (Urea Nitrogen) 15 mg/dL (9.8-20.1); Bilirubin, Total 0.4 mg/dL (0.3-1.2); Calc. Creatinine Clearance 0 mL/min (70-130); Calcium 10.8 mg/dL (7.8-10.44); Carbon Dioxide 25 mmol/L (23-31); Chloride 105 mmol/L (98-107); Estimated GFR 79; Globulin 4.2 g/dL (2.4-3.5); Glucose 123 mg/dL (83-110); Lipase 27 U/L (8-78); Magnesium 1.5 mg/dL (1.6-2.6); Potassium 4.5 mmol/L (3.5-5.1); Protein, Total 7.6 g/dL (5.8-8.1); Sodium 138 mmol/L (136-145)
[2024-12-30 08:29] LABS: Bilirubin Negative (Negative); Blood, Urine Trace (Negative); CAUTI Indications for Culture Pelvic or flank pain; Clarity Clear (Clear); Glucose, Urine (Dipstick) 50 mg/dL (Negative); Ketone, Urine Negative (Negative); Leukocyte 75 Leu/uL (Negative); Nitrite Negative (Negative); Protein, Urine (Dipstick) 70 mg/dL (Neg-Trace); RBC/HPF 0-3 HPF (0-3); Squamous Epithelial 0-3 HPF (0-3); Urobilinogen Normal mg/dL (Less than 2)
[2024-12-30 08:34] LABS: Bacteria/HPF 1+ HPF (None Seen)
[2024-12-30 08:35] LABS: Urine Culture Reflex Yes Yes
[2024-12-30] MEDS ORDERED: Ondansetron PF 4 MG/2 ML Vial ONE (08:36)
[2024-12-30] MEDS ORDERED: dilTIAZem 25 MG/5 ML VIAL ONE (08:36)
[2024-12-30] MEDS ORDERED: Morphine 4 MG/ML VIAL ONE (08:36)
[2024-12-30] MEDS ORDERED: cefTRIAXone (ROCEPHIN) 1 GM VIAL ONE (09:59)
[2024-12-30] MEDS ORDERED: Sodium Chloride 0.9% 100 ML ONE (09:59)
[2024-12-30] MEDS ORDERED: Metoprolol Tartrate 5 MG (5 mL) VIAL ONE (10:03)
[2024-12-30] MEDS ORDERED: Magnesium 2 GM/50 ML BAG (IN WATER) ONE (10:03)
[2024-12-30] MEDS ORDERED: Labetalol HCl 100 MG/20 ML VIAL SLOW IVP PRN (11:39)
[2024-12-30] MEDS ORDERED: Ondansetron ODT 4 MG TAB PO PRN (11:39)
[2024-12-30] MEDS ORDERED: Ondansetron PF 4 MG/2 ML Vial IVP PRN (11:39)
[2024-12-30] MEDS ORDERED: Metoprolol Tartrate 50 MG TAB ONE (12:20)
[2024-12-30] MEDS: Metoprolol Succinate XL 50 MG ER.TAB PO SCH (12:22)
[2024-12-30 15:20] VITALS: BMI 39.5
[2024-12-30] MEDS: Famotidine 20 MG TAB PO SCH (20:45)
[2024-12-30] MEDS: Apixaban 2.5 MG TAB PO SCH (20:45)
[2024-12-30] MEDS: Gabapentin 300 MG CAP PO SCH (20:45)
[2024-12-31 05:05] LABS: #Basophils 0.04 10x3/uL (0.0-0.2); %Basophils 0.6 % (0.0-1.0); %Eosinophils 2.6 % (0.0-10.0); %Lymphocytes 24.3 % (21.0-51.0); %Monocytes 9.2 % (0.0-10.0); Mean Corpuscular HGB CONC 32.4 g/dL (32.0-36.0); Mean Corpuscular Volume 95.6 fL (78.0-98.0); Mean Platelet Volume 10.8 fL (7.4-10.4); Platelet Count 148 10x3/uL (130-400); RBC Distribution Width 13.2 % (11.5-14.5); Red Blood Cell (RBC) Count 3.87 mill/uL (4.20-5.40)
[2024-12-31 05:47] LABS: Anion Gap 11 mmol/L (10-20); BUN (Urea Nitrogen) 17 mg/dL (9.8-20.1); Calc. Creatinine Clearance 98 mL/min (70-130); Calcium 10.1 mg/dL (7.8-10.44); Carbon Dioxide 25 mmol/L (23-31); Chloride 106 mmol/L (98-107); Estimated GFR 80; Glucose 96 mg/dL (83-110); Magnesium 1.8 mg/dL (1.6-2.6); Potassium 4.3 mmol/L (3.5-5.1); Sodium 138 mmol/L (136-145)
[2024-12-31] MEDS: Aspirin Chewable 81 MG TAB PO SCH (08:44)
[2024-12-31] MEDS: cefTRIAXone\\ROCEPHIN 1 GM in Sodium Chloride 0.9% 100 ML IVPB SCH (08:45)
[2025-01-01 04:44] LABS: #Basophils 0.05 10x3/uL (0.0-0.2); %Basophils 0.7 % (0.0-1.0); %Eosinophils 2.4 % (0.0-10.0); %Lymphocytes 23.1 % (21.0-51.0); %Monocytes 8.7 % (0.0-10.0); %Neutrophils 64.7 % (42.0-75.0); Hematocrit 38.4 % (36.0-47.0); Hemoglobin 12.3 g/dL (12.0-16.0); Mean Corpuscular Hemoglobin 30.7 pg (27.0-31.0); Mean Corpuscular Volume 95.8 fL (78.0-98.0); Mean Platelet Volume 11.2 fL (7.4-10.4); Platelet Count 174 10x3/uL (130-400); RBC Distribution Width 13.2 % (11.5-14.5); Red Blood Cell (RBC) Count 4.01 mill/uL (4.20-5.40)
[2025-01-01 05:08] LABS: Anion Gap 10 mmol/L (10-20); BUN (Urea Nitrogen) 20 mg/dL (9.8-20.1); Calc. Creatinine Clearance 107 mL/min (70-130); Calcium 10.2 mg/dL (7.8-10.44); Carbon Dioxide 25 mmol/L (23-31); Chloride 108 mmol/L (98-107); Estimated GFR 85; Glucose 102 mg/dL (83-110); Potassium 4.1 mmol/L (3.5-5.1); Sodium 139 mmol/L (136-145)
[2025-01-01] MEDS: Lisinopril 5 MG TAB PO SCH (09:00)
[2025-01-01] MEDS: Acetaminophen 500 MG TAB PO PRN (22:59)
[2025-01-02 05:16] LABS: #Basophils 0.05 10x3/uL (0.0-0.2); %Basophils 0.8 % (0.0-1.0); %Lymphocytes 28.1 % (21.0-51.0); %Monocytes 9.5 % (0.0-10.0); %Neutrophils 58.1 % (42.0-75.0); Hematocrit 37.2 % (36.0-47.0); Hemoglobin 12.1 g/dL (12.0-16.0); Mean Corpuscular HGB CONC 32.5 g/dL (32.0-36.0); Mean Corpuscular Hemoglobin 30.8 pg (27.0-31.0); Mean Corpuscular Volume 94.7 fL (78.0-98.0); Mean Platelet Volume 11.1 fL (7.4-10.4); Platelet Count 177 10x3/uL (130-400); RBC Distribution Width 13.1 % (11.5-14.5); Red Blood Cell (RBC) Count 3.93 mill/uL (4.20-5.40)
[2025-01-02 20:04] VITALS: TEMP 98
[2025-01-03 04:35] LABS: #Basophils 0.04 10x3/uL (0.0-0.2); %Basophils 0.6 % (0.0-1.0); %Eosinophils 3.7 % (0.0-10.0); %Lymphocytes 29.8 % (21.0-51.0); %Monocytes 8.4 % (0.0-10.0); %Neutrophils 57.2 % (42.0-75.0); Hematocrit 36.7 % (36.0-47.0); Hemoglobin 11.6 g/dL (12.0-16.0); Mean Corpuscular HGB CONC 31.6 g/dL (32.0-36.0); Mean Corpuscular Hemoglobin 30.2 pg (27.0-31.0); Mean Corpuscular Volume 95.6 fL (78.0-98.0); Mean Platelet Volume 11.1 fL (7.4-10.4); Platelet Count 189 10x3/uL (130-400); RBC Distribution Width 13.2 % (11.5-14.5); Red Blood Cell (RBC) Count 3.84 mill/uL (4.20-5.40)
[2025-01-03 05:07] LABS: Anion Gap 11 mmol/L (10-20); BUN (Urea Nitrogen) 23 mg/dL (9.8-20.1); Calc. Creatinine Clearance 84 mL/min (70-130); Calcium 10.4 mg/dL (7.8-10.44); Carbon Dioxide 27 mmol/L (23-31); Chloride 104 mmol/L (98-107); Estimated GFR 66; Glucose 115 mg/dL (83-110); Potassium 3.9 mmol/L (3.5-5.1); Sodium 138 mmol/L (136-145)
[2025-01-03 07:53] VITALS: BP 195/110
== END 2025-01-03 10:48 | disposition home health service (06) | DRG 690 ==
LOC: ERS 07:16 → ERHOLD 10:44 → 2NO 14:39 → OBSVTOIN 12-31 14:22 → 2NO 01-01 14:30
PROVIDERS: ADMIT Family Medicine; ATTEND Internal Medicine
DX: N39.0 Urinary tract infection, site not specified (principal); I48.91 Unspecified atrial fibrillation; E83.42 Hypomagnesemia; I10 Essential (primary) hypertension; M10.9 Gout, unspecified; I25.2 Old myocardial infarction; Z90.710 Acquired absence of both cervix and uterus; Z98.890 Other specified postprocedural states; Z79.01 Long term (current) use of anticoagulants; Z79.82 Long term (current) use of aspirin; Z88.8 Allergy status to other drugs, medicaments and biological substances; Z88.1 Allergy status to other antibiotic agents; Z79.899 Other long term (current) drug therapy
CPT/HCPCS: 36415; 36416; 71045; 74177; 76705; 80048; 80053; 81001; 83690; 83735; 83880; 84443; 84484; 85025; 85610; 85730; 87086; 93005; 96365; 96367; 96375; J0696; J2270; J2405; J3475